=== PATIENT | female | born 1990 | race Caucasian/White ===

== ENCOUNTER 2020-01-11 19:40 | Emergency (ER) | payer OTHER, SELFPAY ==
--- NOTE | ~2020-01-11 | CT_ITS ---
EXAMINATION: CT brain wo con DATE: 01/11/2020 21:53 INDICATION: Dizziness. Paresthesias. TECHNIQUE: Computed tomography (CT) of the head was performed without intravenous contrast. Sagittal and coronal reconstructions were performed. The mA was adjusted according to patient size. Iterative reconstruction technique was employed. The dose-length product was 605.33 mGy-cm. COMPARISON: None FINDINGS: No acute intracranial hemorrhage, acute infarction or abnormal extra axial fluid collection. Ventricl es are normal and symmetric. No mass/mass effect. Mild mucosal thickening the bilateral ethmoid sinus es. The orbits and mastoid air cells are normal. IMPRESSION: 1. No acute intracranial process. Reviewed, dictated and finalized at location A.
[2020-01-11 19:44] VITALS: BP 142/80; PULSE 122; RESP 18; TEMP 37.5; O2SAT 100
--- NOTE | 2020-01-11 19:58 | ECG_ITS ---
Measurements Intervals [place] Rate: 124 P: 60 SC: 133 QRS: 6 QRSD: 100 T: 33 QT: 337 QTc: 484 Interpretive Statements SINUS TACHYCARDIA BORDERLINE ST-T WAVE ABNORMALITY- DIFFUSE LEADS BASELINE ARTIFACT- II, AVF ABNORMAL ECG Electronically Signed On 01-12-2020 7:54:37 CDT by Star Turner D.O.
[2020-01-11 20:12] LABS: Basophils Percent Auto 0.4 % (0.2-1.2); Eosinophils Absolute Auto 0.1 K/mm3 (0-0.3); Eosinophils Percent Auto 1.4 % (0-4.4); Immature Granulocyte Absolute 0.04 K/mm3 (0.00-0.031); Immature Granulocyte Percent A 0.6 % (0-0.5); Lymphocytes Absolute Auto 1.13 K/mm3 (0.9-3.2); Lymphocytes Percent Auto 16.3 % (18.3-44.2); Mean Corpuscular HGB Conc 29.4 g/dl (32-36); Mean Corpuscular Hemoglobin 21.4 pg (26-34); Mean Corpuscular Volume 72.8 fl (80-100); Mean Platelet Volume 10.7 fl (7.4-10.4); Monocytes Absolute Auto 0.2 K/mm3 (0.1-0.6); Monocytes Percent Auto 3.5 % (2.6-8.5); Neutrophils Absolute Auto 5.4 K/mm3 (1.3-6.7); Neutrophils Percent Auto 77.8 % (45.5-73.1); Platelet Count Result 315 k/mm3 (150-375); Red Blood Count 4.67 M/mm3 (4.2-5.4); Red Cell Distribution Width 16.6 % (11.5-14.5); White Blood Count 6.9 K/mm3 (4.5-10.0)
[2020-01-11 20:24] LABS: Anion Gap 8 mmol/L (8-16); Blood Urea Nitrogen 12 mg/dL (7-17); Calcium 9.3 mg/dL (8.4-10.2); Carbon Dioxide 28 mmol/L (22-30); Chloride 102 mmol/L (98-107); Estimated CRCL calculation 124 ml/min; Estimated Glomerular Filt Rate > 60; Glucose 114 mg/dL (65-105); Potassium 4.2 mmol/L (3.4-5.0); Sodium 138 mmol/L (137-145)
[2020-01-11 20:27] LABS: Anisocytosis 2+ (NORMAL); Platelet Estimate Adequate (Adequate)
[2020-01-11 21:30] VITALS: BP 137/95; PULSE 95; RESP 18; O2SAT 99
--- NOTE | 2020-01-11 21:52 | ED.DIZZY ---
HPI - Dizziness General Chief Complaint: Dizziness Stated Complaint: weakness, feels like shes arsenio pass out Time Seen by Provider: 01/11/20 21:23 History of Present Illness HPI Narrative: Patient presents with her [id number]-ad-dyw for dizziness. Started this afternoon at 2:00 when she woke up from a nap. She said she could not feel her leg, she had visual disturbance that she cannot describe. She does not know whether it is an off balance or a going to faint sensation. She is never felt like this before. She has had a cough since last night. Her temperature is elevated. She denies any pain. She denies any recent illness. She does not have any ear pain or difficulty hearing. Her surgical history includes a . She works full-time at [email or web address]. MD elicited complaint: dizziness, lightheadedness and difficulty walking Pertinent past history: other (Morbid obesity) Onset (ago): hour(s) Timing: awoke with symptoms Severity: moderate Description: other (She cannot decide or describe.) History of similar symptoms: No Exacerbating factors: movement/ambulation Relieving factors: nothing Associated symptoms: change in hearing (She said she could not hear) and palpatations Associated neuro symptoms: vision changes (She cannot describe it is either blurry or double vision, just that she could not make things out) Related Data Allergies Allergy/AdvReac Type Severity Reaction Status Date / Time Penicillins Allergy Mild DIARRHEA Verified 01/11/20 19:47 AMOXICILLIN TRIHYDRATE Allergy Unknown Unknown Uncoded 01/11/20 19:47 Review of Systems Review of Systems: Narrative: CONSTITUTIONAL: Denies fever, chills, or sweats. EYES: Denies visual changes, redness, or discharge. ENT: Denies rhinorrhea, congestion, sore throat, or otalgia. CARDIOVASCULAR: Denies chest pain, palpitations, or edema. RESPIRATORY: She has cough but not dyspnea. GASTROINTESTINAL: Denies abdominal pain, nausea, vomiting, or diarrhea. GENITOURINARY: Denies dysuria or hematuria. SKIN: Denies rash or itching. MUSCULOSKELETAL: Denies back pain, joint pain, or myalgia. NEUROLOGIC: Denies headache, she had numbness of the legs, and weakness. . All systems reviewed & are unremarkable except as noted in HPI and below [facility] Past Medical History Medical History Family planning Morbid obesity Surgical History Surgical History (Updated 01/11/20 @ 21:58 by Deborah Montoya MD) History of Social History Social History (Updated 01/11/20 @ 21:59 by Deborah Montoya MD) Smoking status: Current every day smoker Alcohol intake: current Substance use: current Exam Narrative: Exam Narrative: GENERAL: Well-appearing, well-nourished, and in no acute distress. Morbid obesity. HEAD: Normocephalic, atraumatic. EYES: PERRLA and EOMI. ENT: Nares clear, no rhinorrhea or epistaxis. Mucous membranes moist. NECK: Supple. CHEST: Clear to auscultation. No respiratory distress. HEART: Regular rate and rhythm. No murmur heard. Normal peripheral pulses. ABDOMEN: Soft, nontender, nondistended, normal active bowel sounds. EXTREMITIES: Normal range of motion. No edema. SKIN: Warm, dry, no rash. NEURO: No focal deficits. Alert and oriented x3. PSYCH: Anxious. Course Reevaluation(s) Reevaluation #1: Went back in the room to explain the test results to the patient and her txtdro-[id number]-spy. The patient sat up and said she felt better. I explained I will send her home with a prescription for the meclizine. The iwtfko-gf-vye is still very concerned that we have not given a proper diagnosis to any of the symptoms. I offered a follow-up doctor for further evaluation. The patient and said that she just thinks she needs to go home and sleep and she will be fine. Date: 01/11/20 Time: 22:59 Vital Signs Vital signs: Vital Signs Temperature 99.5 F 01/11/20 19:44 Pulse Rate 122 H 01/11/20 19:44 Respiratory Rat
[2020-01-11] MEDS: MECLIZINE HCL 25 MG TABLET PO (21:59)
[2020-01-11 22:07] LABS: Ethanol < 10 mg/dL (<10)
--- NOTE | 2020-01-11 22:45 | PC.NURSE ---
Not much relief with dizziness or vision issues at this time---Dr Montoya aware
[2020-01-11 23:10] VITALS: BP 132/89; PULSE 72; RESP 16; O2SAT 96
== END 2020-01-11 23:24 | disposition home or self-care (01) ==
PROVIDERS: Emergency Provider Emergency Medicine
DX: R42 Dizziness and giddiness (principal); R20.2 Paresthesia of skin; H53.9 Unspecified visual disturbance; R05 Cough; E66.01 Morbid (severe) obesity due to excess calories; Z68.35 Body mass index [BMI] 35.0-35.9, adult; F17.200 Nicotine dependence, unspecified, uncomplicated; R00.0 Tachycardia, unspecified; R94.31 Abnormal electrocardiogram [ECG] [EKG]
CPT/HCPCS: 36415; 70450; 80048; 80307; 85025; 93005; 99284; A9270

== ENCOUNTER 2021-06-06 19:47 | Emergency (ER) | payer OTHER, SELFPAY ==
[2021-06-06 19:55] VITALS: BP 172/106; PULSE 104; RESP 16; TEMP 36.9; O2SAT 100
[2021-06-06 20:00] VITALS: BP 172/106; PULSE 104; RESP 16; TEMP 36.9; O2SAT 100
--- NOTE | 2021-06-06 20:08 | ED.URI ---
HPI - URI/Sore Throat General Chief Complaint: Upper Respiratory Infection Stated Complaint: congestion fever Time Seen by Provider: 06/06/21 20:00 Source: patient, RN notes reviewed and old records reviewed Mode of arrival: ambulatory Limitations: no limitations History of Present Illness HPI Narrative: 30 year old female who presents to [facility] with complaints of headache, cough, with fatigue and left ear pain with fevers up to 101.9F since Monday. Patient reports that she has dry cough has been taking Advil cold and flu for her symptoms. Patient reports no COVID or flu vaccinations. MD elicited complaint: rhinorrhea and nasal congestion Related Data Home Medications Medication Instructions Recorded Confirmed No Home Medications 06/06/21 06/06/21 Allergies Allergy/AdvReac Type Severity Reaction Status Date / Time Penicillins Allergy Mild DIARRHEA Verified 06/06/21 19:59 AMOXICILLIN TRIHYDRATE Allergy Unknown Diarrhea Uncoded 06/06/21 19:59 Review of Systems Review of Systems: CONSTITUTIONAL: Positive fever, chills, or sweats. EYES: Denies visual changes, redness, or discharge. ENT: Positive rhinorrhea, congestion,no sore throat, left otalgia. CARDIOVASCULAR: Denies chest pain, palpitations, or edema. RESPIRATORY: Positive cough no dyspnea. GASTROINTESTINAL: Denies abdominal pain, nausea, vomiting, or diarrhea. GENITOURINARY: Denies dysuria or hematuria. SKIN: Denies rash or itching. MUSCULOSKELETAL: Denies back pain, joint pain, or myalgia.fatigue NEUROLOGIC: positive headache,no numbness, or weakness. PSYCHIATRIC: Positive history of anxiety or depression. All systems reviewed & are unremarkable except as noted in HPI and below [facility] Past Medical History Medical History (Updated 06/08/21 @ 08:18 by Lupe Vanegas NP) Anxiety Family planning Morbid obesity Surgical History Surgical History History of Social History Social History (Updated 06/08/21 @ 08:20 by Lupe Vanegas NP) Smoking packs per day: 0.25 Smoking cigarettes per day: 5.0 Smoking status: Current every day smoker Alcohol intake: current Substance use: unknown Living arrangements: with family Gender identity (if verbalized by the patient): Female Comments At time of signature, agree with nursing past medical, surgical, social and family history. There is no relevant family history pertinent to the presenting complaint Exam Narrative: GENERAL: Well-appearing, well-nourished, and in no acute distress. HEAD: Normocephalic, atraumatic. EYES: PERRLA and EOMI. ENT: Nares patent with clear rhinorrhea no epistaxis. Mucous membranes moist.TM's normal with good light reflex, throat pink with no lesions exudates or tonsil enlargement post nasal drainage. NECK: Supple.no lymphadenopathy CHEST: Clear to auscultation. No respiratory distress.SAO2 100% on room air, dry cough HEART: Regular rate and rhythm. No murmur heard. Normal peripheral pulses. ABDOMEN: Soft, nontender, nondistended, normal active bowel sounds. EXTREMITIES: Normal range of motion. No edema. SKIN: Warm, dry, no rash. NEURO: No focal deficits. Alert and oriented x3. Course Course Level of Care: Express Care Visit Vital Signs Vital signs: Vital Signs Temperature 36.9 C 06/06/21 19:55 Pulse Rate 104 H 06/06/21 19:55 Respiratory Rate 16 06/06/21 19:55 Blood Pressure 172/106 H 06/06/21 19:55 Pulse Oximetry 100 06/06/21 19:55 Temperature 36.9 C 06/06/21 20:00 Pulse Rate 104 H 06/06/21 20:00 Respiratory Rate 16 06/06/21 20:00 Blood Pressure 172/106 H 06/06/21 20:00 Pulse Oximetry 100 06/06/21 20:00 MDM - URI/Sore Throat Differential Diagnosis Differential diagnosis: Likely upper respiratory infection, viral infection and other (cough,) Medical Records Attestation: I reviewed the patient's medical records. Lab Data Attestation: I reviewed the patient'
== END 2021-06-06 20:27 | disposition home or self-care (01) ==
PROVIDERS: Emergency Provider Registered Nurse
DX: J06.9 Acute upper respiratory infection, unspecified (principal); F17.210 Nicotine dependence, cigarettes, uncomplicated; E66.01 Morbid (severe) obesity due to excess calories; Z68.42 Body mass index [BMI] 45.0-49.9, adult
CPT/HCPCS: 87426; 99213; C9803; G0463

== ENCOUNTER 2023-10-02 21:49 | Emergency (ER) | payer SELFPAY ==
--- NOTE | ~2023-10-02 | XR_ITS ---
EXAM: XR foot LT min 3V DATE: 10/02/2023 22:18 HISTORY: lump on foot . COMPARISON: None available. FINDINGS: Normal mineralization. No fracture or dislocation. No lytic or blastic lesion. Joint space s are maintained. Mild Achilles and plantar enthesopathy. No erosion or periosteal change. 2.9 x 1.0 cm soft tissue swelling over the dorsum of the foot with an associated calcification. IMPRESSION: No acute osseous finding in the left foot. 2.9 x 1.0 cm dorsal soft tissue mass, may represent contusion/hematoma if there has been recent traum a. Consider abscess if there are signs of infection. If chronic, the associated phlebolith-like calcification may represent venous calcification as can be seen with hemangioma, although other masses are possible. Consider nonemergent outpatient soft tissu e ultrasound for further evaluation. Reviewed, dictated and finalized at [facility]. IMPRESSION: No acute osseous finding in the left foot. 2.9 x 1.0 cm dorsal soft tissue mass, may represent contusion/hematoma if there has been recent trauma. Consider abscess if there are signs of infection. If chronic, the associated phlebolith-like calcification may represent venous c alcification as can be seen with hemangioma, although other masses are possible . Consider nonemergent outpatient soft tissue ultrasound for further evaluation .
[2023-10-02 21:50] VITALS: BP 159/97; PULSE 95; RESP 18; TEMP 36.1; O2SAT 97
[2023-10-02 21:55] VITALS: O2SAT 97
--- NOTE | 2023-10-02 22:01 | ED.URI ---
HPI - URI/Sore Throat General Chief Complaint: Upper Respiratory Infection Stated Complaint: upper respiratory Time Seen by Provider: 10/02/23 21:54 History of Present Illness HPI Narrative: Pt presents with cough and pain in upper chest when she coughs for a couple of days. Pt denies fever or SOB. Pt also has a lump on the back of her foot for several weeks that she wants checked out while she's here. Pt denies injury. Pt also has mild sore throat. Related Data Home Medications Medication Instructions Recorded Confirmed No Home Medications 06/06/21 10/02/23 Allergies Allergy/AdvReac Type Severity Reaction Status Date / Time Penicillins Allergy Mild DIARRHEA Verified 06/06/21 19:59 AMOXICILLIN TRIHYDRATE Allergy Unknown Diarrhea Uncoded 06/06/21 19:59 Review of Systems Review of Systems: All systems reviewed & are unremarkable except as noted in HPI and below [facility] Past Medical History Medical History (Updated 10/02/23 @ 22:47 by Vladislav Saavedra III, DO) Anxiety Family planning Morbid obesity Surgical History Surgical History History of Social History Social History (Updated 06/08/21 @ 08:20 by Lupe Vanegas NP) Smoking packs per day: 0.25 Smoking cigarettes per day: 5.0 Smoking status: Current every day smoker Alcohol intake: current Substance use: unknown Living arrangements: with family Gender identity (if verbalized by the patient): Female Exam Const: General: healthy appearing Nutritional Appearance: obese Orientation/consciousness: patient oriented x3 Limitations: no limitations HENMT: Mouth: Yes Normal oral and palatal mucosa present Throat: posterior oropharynx normal Eyes: Conjunctivae: conjunctivae normal Pupils: Equal, round and reactive pupils present EOM: EOMs intact bilaterally Chest: Chest palpation & inspection: normal inspection of the chest Resp: Effort & Inspection: normal respiratory effort Auscultation: clear to auscultation bilaterally Cardio: Rate: regular rate Rhythm: regular rhythm GI: GI Palp: Yes Soft to palpation Skin: Rashes: no rashes Neuro: General: patient oriented x3, moves all extremities and no focal motor deficits Speech: normal speech Extrem: Other: tender with firm knot calcaneus near insertion of achilles Psych: Mental Status: mental status grossly normal Affect: normal affect Attitude: cooperative Course Vital Signs Vital signs: Vital Signs Temperature 97 F L 10/02/23 21:50 Pulse Rate 95 10/02/23 21:50 Respiratory Rate 18 10/02/23 21:50 Blood Pressure 159/97 H 10/02/23 21:50 Pulse Oximetry 97 10/02/23 21:50 Oxygen Delivery Room Air 10/02/23 21:50 Temperature 97 F L 10/02/23 21:50 Pulse Rate 95 10/02/23 21:50 Respiratory Rate 18 10/02/23 21:50 Blood Pressure 159/97 H 10/02/23 21:50 Pulse Oximetry 97 10/02/23 21:55 Oxygen Delivery Room Air 10/02/23 21:55 MDM - URI/Sore Throat MDM Narrative Medical decision making narrative: pt has small collection of fluid in soft tissue, no definite trauma and no erythema or fluctuance so i doubt abscess. told pt she needs to follow up with PC and get sono or mri to evaluate. swabs neg. Differential Diagnosis Differential diagnosis: Likely upper respiratory infection, sinusitis, viral infection, bronchitis, influenza, pharyngitis and other (tendonits vs stress fx) Lab Data Labs: Lab Results 10/02/23 Range/Units 21:56 Influenza A (RT-PCR) Negative (Negative) Influenza B (RT-PCR) Negative (Negative) RSV (RT-PCR) Negative (Negative) SARS-CoV-2 RNA (RT-PCR) Negative (Negative) Group A Strep (PCR) Not detected (Negative) Discharge Plan Discharge Clinical Impression: Upper respiratory infection Patient Disposition: Home, Self-Care Condition: Stable Instructions: Antibiotic Form, Viral Syndrome (ED), Soft Ti
[2023-10-02 22:24] LABS: Strep Group A RT-PCR NOT DETECTED (Negative)
[2023-10-02 22:35] LABS: SARS-CoV-2 RNA PCR Negative (Negative)
[2023-10-02 22:36] LABS: Influenza A QL RT-PCR Negative (Negative); Influenza B QL RT-PCR Negative (Negative); RSV RNA, RT-PCR Negative (Negative)
--- NOTE | 2023-10-02 22:40 | PC.NURSE ---
Pt is back from CT, she will respond to verbal stimuli and is able to comprehend and follow instructions but remains slightly lethargic and very drowsy. She is A&O x2 at this time. Monitor shows NSR, continuing to monitor.
[2023-10-02 22:53] VITALS: BP 132/87; PULSE 84; RESP 20; O2SAT 97
== END 2023-10-02 22:53 | disposition home or self-care (01) ==
PROVIDERS: Emergency Provider Emergency Medicine; PCP Family Medicine
DX: J06.9 Acute upper respiratory infection, unspecified (principal); F41.9 Anxiety disorder, unspecified; Z68.43 Body mass index [BMI] 50.0-59.9, adult; F17.210 Nicotine dependence, cigarettes, uncomplicated; Z20.822 Contact with and (suspected) exposure to COVID-19
CPT/HCPCS: 73630; 87637; 87651; 99283

== ENCOUNTER 2023-10-22 20:50 | Emergency (ER) | payer SELFPAY ==
[2023-10-22 22:03] VITALS: BP 180/107; PULSE 101; RESP 18; TEMP 36.7; O2SAT 99
--- NOTE | 2023-10-22 22:21 | ED.GENADULT ---
HPI - General Adult General Chief complaint: Wound/Laceration Stated complaint: Headache, redness to left lower leg Time Seen by Provider: 10/22/23 22:20 Source: patient Mode of arrival: ambulatory Limitations: no limitations History of Present Illness HPI narrative: 32-year-old white female morbidly obese complains of redness and swelling of her left lower leg associated with warmth. Denies any pain at rest but if she bumps then it then it hurts. She has a history of lymphedema in her right leg. She had a fever 2 days ago not today has a headache intermittently which has improved with Tylenol. Denies any history of venous thromboembolism cough shortness of breath difficulty breathing runny nose sore throat chest pain, other rash or swelling, back pain or any other pain. Denies any problems walking talking seeing or hearing, nausea vomiting diarrhea dizziness or lightheadedness or any other complaints. Related Data Allergies Allergy/AdvReac Type Severity Reaction Status Date / Time Penicillins Allergy Mild DIARRHEA Verified 06/06/21 19:59 AMOXICILLIN TRIHYDRATE Allergy Unknown Diarrhea Uncoded 06/06/21 19:59 Review of Systems Review of Systems: All systems reviewed & are unremarkable except as noted in HPI and below [facility] Past Medical History Medical History Anxiety Family planning Morbid obesity Surgical History Surgical History History of Social History Social History Smoking packs per day: 0.25 Smoking cigarettes per day: 5.0 Smoking status: Current every day smoker Alcohol intake: current Substance use: unknown Living arrangements: with family Gender identity (if verbalized by the patient): Female Exam Narrative: morbidly obese White female no apparent distress. ?Head:? Normocephalic atraumatic.? Eyes conjunctiva pink sclera nonicteric.? Ears externally normal. Oropharynx is clear with moist mucous membranes no exudates.? Neck is supple no lymphadenopathy nontender full range of motion.? Back is nontender.? Chest nontender.? Lungs are clear without wheezes rales or rhonchi.? Heart is regular rate rhythm without murmurs gallops or rubs.? Abdomen soft and nontender no hepatosplenomegaly or masses no CVA tenderness no abdominal bruits.? Extremities : Left leg with a sharply demarcated red rash entire leg warm to touch nontender negative Homans sign. Right leg is mildly erythematous. DP and PT pulses are +2 equal bilateral.? Neurological she is alert and oriented x4 motor and sensory grossly intact.? Skin is warm and dry without lesions. Course Vital Signs Vital signs: Vital Signs Temperature 36.7 C 10/22/23 22:03 Pulse Rate 101 H 10/22/23 22:03 Respiratory Rate 18 10/22/23 22:03 Blood Pressure 180/107 H 10/22/23 22:03 Pulse Oximetry 99 10/22/23 22:03 Oxygen Delivery Room Air 10/22/23 22:03 Temperature 36.7 C 10/22/23 22:03 Pulse Rate 101 H 10/22/23 22:03 Respiratory Rate 18 10/22/23 22:03 Blood Pressure 180/107 H 10/22/23 22:03 Pulse Oximetry 99 10/22/23 22:03 Oxygen Delivery Room Air 10/22/23 22:[address] [facility] Narrative Medical decision making narrative: ? Patient placed in room: 2 with her mother . ? History and physical was performed. Independent Historian: Mother External Source Review: Differential Dx includes but not limited to: cellulitis lymphedema DVT (she has no pain at rest ) Medications were Reviewed: home meds reviewed Medications given: Rocephin 1 g with lidocaine IM Independently Interpreted by me: Shared decision Making: evaluation was discussed all questions were asked and answered and patient agreed with the plan. should take Augmentin 875 twice a day for 7 days. She has an allergy to amoxicillin and penicillin that gives he
[2023-10-22] MEDS: cefTRIAXone 1 GM, LIDOCAINE HCL 1% LOCAL INJ 2.1 ML IM (22:48)
[2023-10-22 23:07] VITALS: BP 155/98; PULSE 87; RESP 20; TEMP 36.6; O2SAT 98
== END 2023-10-22 23:07 | disposition home or self-care (01) ==
PROVIDERS: Emergency Provider Emergency Medicine; PCP Family Medicine
DX: L03.116 Cellulitis of left lower limb (principal); F17.210 Nicotine dependence, cigarettes, uncomplicated
CPT/HCPCS: 96372; 99283; J0696

== ENCOUNTER 2024-06-02 23:56 | Emergency (ER) | payer OTHER, SELFPAY ==
--- NOTE | ~2024-06-02 | XR_ITS ---
Portable chest x-ray Comparison: 08/22/2009 Clinical History: Cough Findings: Lungs are clear, without focal consolidation or pleural effusion. Cardiomediastinal silho uette is stable. Bones and soft tissues are unremarkable. Impression: Clear lungs. Reviewed, dictated and finalized at location . [facility] Impression: Clear lungs.
--- NOTE | 2024-06-03 00:13 | ED.URI ---
HPI - URI/Sore Throat General Chief Complaint: Upper Respiratory Infection Stated Complaint: Sore Throat/cough Time Seen by Provider: 06/03/24 00:13 Source: patient and family Mode of arrival: ambulatory History of Present Illness HPI Narrative: patient drove herself to the emergency room complaining of chest tightness, dry cough, sore throat, earaches, body aches started last night. Got worse tonight. Patient works at [employer]. She is healthy otherwise, she smokes cigarettes Related Data Allergies Allergy/AdvReac Type Severity Reaction Status Date / Time Penicillins Allergy Mild DIARRHEA Verified 06/06/21 19:59 AMOXICILLIN TRIHYDRATE Allergy Unknown Diarrhea Uncoded 06/06/21 19:59 Review of Systems Review of Systems: All systems reviewed & are unremarkable except as noted in HPI and below PMFSH Past Medical History Medical History Anxiety Family planning Morbid obesity Surgical History Surgical History History of Social History Social History Smoking packs per day: 0.25 Smoking cigarettes per day: 5.0 Smoking status: Current every day smoker Alcohol intake: current Substance use: unknown Living arrangements: with family Gender identity (if verbalized by the patient): Female Exam Narrative: General appearance: Well-developed, well-nourished Skin: Normal color Head: Normocephalic, nontraumatic Eyes: Clear conjunctiva ENT: slight oropharyngeal erythema, ears normal, nasal drainage Neck: Supple, nontender Chest and respiratory: Airway patent, no respiratory distress, no accessory muscle use Heart: Regular rate/rhythm Neurologic: Alert and oriented ?3, RADIOGRAPHIC TECHNOLOGIST is normal as tested, no gross motor deficit Course Vital Signs Vital signs: Vital Signs Pulse Oximetry 97 06/03/24 00:24 Oxygen Delivery Room Air 06/03/24 00:24 Temperature 37.2 C 06/03/24 01:33 Pulse Rate 87 06/03/24 01:33 Respiratory Rate 18 06/03/24 01:33 Blood Pressure 133/79 06/03/24 01:33 Pulse Oximetry 98 06/03/24 01:33 Oxygen Delivery Room Air 06/03/24 01:33 MDM - URI/Sore Throat MDM Narrative Medical decision making narrative: patient presents with upper respiratory viral infection like symptoms Vital signs are stable Physical examination showing intermittent dry cough, nina pharyngeal erythema, clear nasal discharge Patient tested negative for COVID, flu and RSV, chest x-ray showed no acute abnormality Upper respiratory viral infection is my concern. Differential Diagnosis Differential diagnosis: Likely other (As above) Lab Data Labs: Lab Results 06/03/24 Range/Units 00:13 Influenza A (RT-PCR) Negative (Negative) Influenza B (RT-PCR) Negative (Negative) RSV (RT-PCR) Negative (Negative) SARS-CoV-2 RNA (RT-PCR) Negative (Negative) Group A Strep (PCR) Not detected (Negative) Imaging Data Radiologist's impression: chest x-ray showed no consolidation Critical Care Time Critical Care Time Critical Care Time: No Discharge Plan Discharge Clinical Impression: Upper respiratory infection, viral Patient Disposition: Home, Self-Care Condition: Stable Instructions: Upper Respiratory Infection (ED) Additional Instructions: Return if symptoms are worsening , call your family physician for appointment, take Tylenol, ibuprofen as as needed for aches and pain, continue home medications. Csen-xvp-gjxudtv cup on cold medicine Patient Language: Tristanian Prescriptions: No Action amoxicillin-pot clavulanate 875-125 mg tablet 1 tablet PO BID 7 Days Qty: 14 0RF clindamycin HCl 300 mg capsule 300 mg PO Q6H 5 Days Qty: 20 0RF Follow-up/Referrals: UNKNOWN,DOCTOR [Primary Care Provider] - Stand Alone Forms: Work/School Release IP
[2024-06-03 00:24] VITALS: O2SAT 97
[2024-06-03 00:31] VITALS: BP 138/72; PULSE 77; RESP 20; TEMP 37.7; O2SAT 97
[2024-06-03 01:18] LABS: Strep Group A RT-PCR NOT DETECTED (Negative)
[2024-06-03 01:21] LABS: Influenza A QL RT-PCR Negative (Negative); Influenza B QL RT-PCR Negative (Negative); RSV RNA, RT-PCR Negative (Negative); SARS-CoV-2 RNA PCR Negative (Negative)
[2024-06-03 01:33] VITALS: BP 133/79; PULSE 87; RESP 18; TEMP 37.2; O2SAT 98
--- OUTSIDE RECORDS SUMMARY | 2024-06-10 03:28 | XMS_ITS | Encounter Summary ---
Author Organization [facility] Address [address] [facility] [address] [place] [id number] Care Team Providers Care Guest Service Manager Name Role Phone Moise Tinoco MD Primary Care Provider [phone] Matrinez Boyle MD Unavailable [phone] Reason for Visit * Reason Comments Follow-up For leg swelling Encounter Details Date Type Department Care Team (Late st Contact Info) Description 09/06/2021 3:45 PM CDT Office Visit [facility] Primary Care at [address] [address] Moise Tinoco MD [address] [place] [address] [address] [place] [address] Lymphedema (Primary Dx); Class 3 severe obesity due to excess calories without serious comorbidity with body mass index (BMI) of 50.0 to 59.9 in adult (HCC) Social History Tobacco Use Types Packs/Day Years Used Date Smoking Tobacco: Every Day Cigarettes 0.5 22 Started: 2002 Smokeless Tobacco: Never AUDIT-C Answer Date Recorded Q1: How often do you have a drink containing alc ohol? Never 08/11/2021 Average Number of Drinks Not on file 022 Q3: How often do you have si x or more drinks on one occasion? 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 Not on file Not on file documented as of this encounter Last Filed Vital Signs Vital Sign Reading Time Taken Comments Blood Pressure 126/84 09/06/2021 3:59 PM CDT Pulse 107 09/06/2021 3:59 PM CDT Temperature 36.7 ??C (98 ??F) 09/06/2021 3:59 PM CDT Respiratory Rate 22 09/06/2021 3:59 PM CDT Oxygen Saturation 97% 09/06/2021 3:59 PM CDT Inhaled Oxygen Concentration - - Weight 169.8 kg (374 lb 4.8 oz) 09/06/2021 3:59 PM CDT Height 172.7 cm (5' 7.99 ) 09/06/2021 3:59 PM CD T Body Mass Index 56.93 09/06/2021 3:59 PM CDT documented in this encounter Patient Instructions * Patient Instructions* Moise Tinoco MD - 09/06/2021 3:45 PM CDT Discussed dietary changes OptaVia program discussed, also Nutrisystem NuMi Discussed intermittent fasting approach- basically, you will curb your eating to only a shortened period in a day. For example, you could fast 14 hours and eat in an 8 hour window; or you could do 16:8, or 18:6. Some do well fasting 2 24- hour periods per week (may be the best approach based on the data, actually, but hard to adhere to). It might be easier to start with a 12-on, 12-off type of strategy first to see how you respond. I would still try and keep on a healthy diet when eating-- good carbs, lean protein, plenty of hydration, and easy on the sweets/pastas/breads. Exercise should be kept to light until you figure out how your body is responding, as there may be a shortfall in energyearly on, as you adjust. Patient Education Lymphedema WHAT YOU NEED TO KNOW: What do I need to know about lymphedema? The lymphatic system contains fluid, vessels, tissue, and organs. This system removes and carries fluid throughout the body. It also helps the body fight infection. Lymphedema is the buildup of lymph fluid in fat tissue under your skin. The buildup causes the area to swell. Lymphedema can happen any time that lymphatic vessels are blocked or damaged. What increases your risk for lymphedema? ?? Surgery to remove lymph nodes in the underarm, groin, pelvis, or neck ?? Radiation to lymph nodes in the underarm, groin, pelvis, or neck ?? Surgery to the chest, head, neck, or pelvis ?? Being overweight or obese ?? A history of venous insufficiency ?? Infection or injury ?? A history of diseases that affect the lymphatic system such as Enders disease What are the signs and symptoms of lymphedema? Signs and symptoms may happen where lymph nodes wereremoved, or in the arm, leg, chest, or underarm. ?? Swelling or itching ?? Pain, burning, or aching ?? Tight, hard, or red skin ?? Hair loss ?? Heaviness or fullness ?? Numbness or tingling ?? Stiffness How is lymphedema diagnosed? Your healthcare provider will examine areas of swelling and ask about your symptoms. Tell him if you have ever had cancer, radiation treatment, or surgery. You may need an ultrasound, MRI, CT, or nuclear scan. These tests take pictures of the lymphatic system. They may show areas of fluid buildup. You may be given dye to help the lymphatic system show up better in pictures. Tell the healthcare provider if you have ever had an allergic reaction to contrast liquid. Donot enter the MRI room with anything metal. Metal can cause serious injury. Tell the healthcare provider if you have any metal in or on your body. You may need other tests to check for other causes of swelling. How is lymphedema treated? There is no cure for lymphedema. Treatment can relieve symptoms and prevent lymphedema from getting worse. You may need any of the following: ?? Therapeutic massage helps move lymphatic fluid through your body. It is done by a specialist, who may also teach you how to perform the massage yourself. ?? Compression devices are sleeves, gloves, boots, or bandages. These devices use pressure to help move lymphatic fluid and prevent fluid buildup. ?? Physical therapy may help decrease swelling and pain. It may also help improve strength. ?? Surgery may be needed if other treatments do not work. Surgery may be done to remove tissue, drain fluid, or create a path for lymphatic fluid to flow. How can I manage my symptoms? ?? Elevate your arm or leg above the level of your heart as often as you can. This will help decrease swelling and pain. Prop your arm or leg on pillows or blankets to keep it elevated comfortably. ?? Wear compression socks, sleeves, or bandages as directed. Compression devices must be fitted by a healthcare provider. Compression devices may need to be replaced every 3 to 6 months. ?? Exercise can help you maintain or regain function of your arm or leg. Ask your healthcare provider what type of exercise to do and how often to do it. Start slow, take breaks, and gradually do more each day. Do not do vigorous, repeated exercises. Watch for changes in your arm or leg during exercise. Stop and rest if you have swelling, increased pain, or heaviness. Elevate your arm or leg above the level of your heart. ?? Change your position often to help move lymphatic fluid through your body. Do not sit or camera tuning engineer one position for more than 30 minutes. Do not cross your legs when you sit. These actions can cause lymphatic fluid to buildup. ?? Maintain a healthy weight. Ask your healthcare provider what you should weigh. Weight loss may improve your symptoms. If you need to lose weight, your healthcare provider can help you create a weight loss program. How do I care for my skin and help prevent infection? A skin infection can make lymphedema worse. Do the following to decrease your risk for a skin infection in your arm or leg with lymphedema: ?? Wash your skin gently and dry it well. Use a mild soap to wash your skin. Gently pat your skin dry after you bathe. Apply a mild cream or lotion to moisturize your skin and prevent dryness or cracking. Keep your feet clean and dry. ?? Protect your skin from injury. Wear gloves when you garden and wash dishes. Cut your nails straight across to prevent injury to your fingers and toes. Use sunscreen and insect repellant to avoid villanueva and punctures. Wear slippers in the house. Wear shoes when you go outside. ?? Check your skin every day for signs of infection. Signs of infection include redness, swelling, increased heat, or pus. You may also have a fever or chills. ?? Care for cuts, scratches or villanueva. Apply antibiotic ointment to cuts and other small breaks in the skin. Apply a cold pack or cold water to a burn for 15 minutes. Then wash it with soap and water.Cover scratches, cuts, or villanueva with a clean, dry gauze or bandage as directed. Keep the area cleanand dry. ?? Tell healthcare providers that you have lymphedema. Tell them not to do, IVs, blood draws, and blood pressure readings in the arm or leg with lymphedema. If there is lymphedema in both arms, ask them to take your blood pressure on your leg. Do not allow flu shots or vaccinations in your arm withlymphedema. When should I contact my healthcare provider? ?? You have a fever or chills. ?? You have an open area of skin that looks red or swollen, or drains pus. ?? Your symptoms, such as swelling or pain, get worse. ?? Your arms or legs feel heavy, or you cannot move them. ?? Your skin becomes hard, thick, or rough. ?? You have a skin wound that will not heal. ?? Your shoes, clothes, or jewelry feel tighter. ?? You have questions or concerns about your condition or care. CARE AGREEMENT: You have the right to help plan your care. Learn about your health condition and how it may be treated. Discuss treatment options with your caregivers to decide what care you want to receive. You always have the right to refuse treatment. The above information is an forestry fire aide only. It is not intended as medical advice for individual conditions or treatments. Talk to your doctor, nurse or pharmacist before following any medical regimen to see if it is safe and effective for you. ?? 2017 [employer] Information is for End User's use only and may not be sold, redistributed or otherwise used for commercial purposes. All illustrations and images included in CareNotes?? are the copyrighted property of [employer] Inc[employer] or [employer]. Thanks for coming in today! My medical assistants and I are thankful you have trusted us with your care, and hope that you received EXCELLENT care today! Please do not hesitate to call if you have any questions or concerns at [phone]. You may receive a phone call, text, MYCHART message, or e-mail asking about your care today. We would love to hear your feedback on how EXCELLENT your care wastoday! Wishing you better health, always. Dr. Tinoco documented in this encounter Progress Notes * Moise Tinoco MD - 09/06/2021 3:45 PM CDT Images from the original note were not included. Subjective/Objective Patient ID: Christine Siddiqi is a 30 y.o. female. Chief Complaint Follow-up (For leg swelling ) Christine presents for follow-up. She is still dealing with swelling in her legs however now that wehave left the furosemide going for longer than a few days at a time she notes that the swelling is better. Blood pressures improved with the losartan. She is trying to elevate her legs as prescribed which is also seemingly helping. We discussed weight loss in the past, and we are discussing again today. She works at [employer], which is a bit of a problem when dieting. Current Outpatient Medications: ??? furosemide (LASIX) 20 mg tablet, Take 1 tablet (20 mg total) by mouth daily, Disp: 30 tablet, Rfl: 1 ??? losartan (COZAAR) 50 mg tablet, Take 1 tablet (50 mg total) by mouth daily, Disp: 30 tablet, Rfl: 11 Review of Systems Constitutional: Negative for chills, fatigue and fever. Respiratory: Negative for cough, shortness of breath and wheezing. Cardiovascular: Positive for leg swelling. Negative for chest pain and palpitations. Neurological: Negative. Psychiatric/Behavioral: Negative. BP 126/84 (BP Location: Left arm, Patient Position: Sitting) Pulse 107 Temp 36.7 ??C (98 ??F) Resp 22 Ht 172.7 cm (5' 7.99 ) Wt (!) 169.8 kg (374 lb 4.8 oz) SpO2 97% BMI 56.93 kg/m?? Physical Exam Vitals reviewed. Constitutional: Appearance: She is morbidly obese. Cardiovascular: Rate and Rhythm: Normal rate and regular rhythm. Pulmonary: Breath sounds: No wheezing, rhonchi or rales. Musculoskeletal: Right lower leg: Edema present. Left lower leg: Edema present. Neurological: Mental Status: She is alert and oriented to person, place, and time. Assessment/Plan Diagnoses and all orders for this visit: Lymphedema (Primary) Comments: Will continue furosemide for now, open-ended Class 3 severe obesity due to excess calories without serious comorbidity with body mass index (BMI) of 50.0 to 59.9 in adult ([facility]) Comments: Discussed dietary changes OptaVia program discussed, also Nutrisystem NuMi Assessment & Plan: BMI Follow-up includes: nutrition counseling, exercise counseling and education provided. Moise Tinoco MD This office note has been partially dictated using [employer] software, and as a result portions of the record may have been created with this software. Occasional wrong-word or 'ukckf-o-aeop' substitutions may have occurred due to the inherent limitations of voice recognition software. Read the chartcarefully and recognize, using context, where substitutions have occurred. documented in this encounter Miscellaneous Notes * Assessment & Plan Note - Moise Tinoco MD - 09/10/2021 4:35 PM CDT Associated Problem(s): Class 3 severe obesity due to excess calories without serious comorbidity with body mass index (BMI) of 50.0 to 59.9 in adult ([facility]) BMI Follow-up includes: nutrition counseling, exercise counseling and education provided. documented in this encounter Plan of Treatment Not on file documented as of this encounter Visit Diagnoses Diagnosis Lymphedema- Primary Other noninfectious lymphedema Class 3 severe obesity due to excess calories without serious comorbidity with body mass index (BMI) of 50.0 to 59.9 in adult ([facility]) documented in this encounter Care Teams Guest Service Manager Relationship Specialty Start Date End Date Moise Tinoco MD [address] [place] [address] PCP - General Family Medicine 08/11/21 Martinez Boyle MD [address] [place] [address] Referring Physician Obstetrics and Gynecology 08/11/21 documented as of this encounter
--- OUTSIDE RECORDS SUMMARY | 2024-06-10 03:28 | XMS_ITS | Encounter Summary ---
Author Organization [facility] Address [address] [address] Care Team Providers Care Electronic Coils Supervisor Name Role Phone Moise Tinoco MD Primary Care Provider [phone] Martinez Boyle MD Unavailable [phone] Encounter Details Date Type Department Care Team (Late st Contact Info) Description 08/11/2021 12:00 PM RATTLE LEAK AND SQUEAK REPAIRER Lab [facility] Outpatient Lab at [address] [phone] Class 3 severe obesity due to excess calories without serious comorbidity with body mass index (BMI) of 50.0 to 59.9 in adult (HCC); Encounter for medical examination to establish care Social History Tobacco Use Types Packs/Day Years [...] on file Legal Sex Female 2:41 PM RATTLE LEAK AND SQUEAK REPAIRER Gender Identity Not on file Sexual Orientation Not on file 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 Not on file Not on file documented as of this encounter Plan of Treatment Not on file documented as of this encounter Visit Diagnoses Diagnosis Class 3 severe obesity due to excess calories without serious comorbidity with body mass index (BMI) of 50.0 to 59.9 in adult (HCC) Encounter for medical examination to establish care documented in this encounter Care Teams Electronic Coils Supervisor Relationship Specialty Start Date End Date Moise Tinoco MD [address] [place] [address] PCP - General Family Medicine 08/11/21 Martinez Boyle MD [address] [place] [address] Referring Physician Obstetrics and Gynecology 08/11/21 documented as of this encounter
--- OUTSIDE RECORDS SUMMARY | 2024-06-10 03:28 | XMS_ITS | Referral Summary ---
Author Organization [facility] [address] Address [address] [place] [id number] Care Team Providers Care Cone Operator Name Role Phone Moise Tinoco MD Primary Care Provider [phone] Martinez Boyle MD Unavailable [phone] Allergies Active Allergy Reactions Criticality Noted Date Comments Amoxicillin Diarrhea Low 08/10/2021 Medications losartan (COZAAR) 50 mg tabletIndication s:Hypertension, essential Take 1 tablet (50 mg total) by mouth daily 30 tablet 11 08/11/2021 Active furosemide (LASIX) 20 mg tabletIndication s:Hypertension, essential Take 1 tablet (20 mg total) by mouth daily 30 tablet 1 08/20/2021 Active Active Problems Problem Noted Date Diagnosed Date Hypertension, essential 02/08/2022 Lymphedema 09/10/2021 Encounter for medical examination to establish c are 08/11/2021 Assessment & Plan (08/13/2021 5:10 PM SPECIAL EDUCATION CURRICULUM SPECIALIST): A initial well visit to establish care has been performed today. Christine Siddiqi is not up to date on screening tests. She is in need of Cervical cancer screening- these have been ordered. She is not up to date on needed preventative vaccinations; She is in need of Tdap/Td, Influenza and Pneumonia (Prevnar-13 or Pneumovax-23). These have been ordered/arranged unless otherwise indicated. Will have her go through doxycycline course Likely venous stasis underlying as well. Weight loss should help Awaiting labs Class 3 severe obesity due t o excess calories without serious comorbidity with body mass index (BMI) of 50.0 to 59.9 in adult 08/11/2021 Assessment & Plan (09/10/2021 4:35 PM CDT): BMI Follow-up includes: nutrition counseling, exercise counseling and education provided. 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
--- OUTSIDE RECORDS SUMMARY | 2024-06-10 03:28 | XMS_ITS | Encounter Summary ---
Author Organization [facility] Address [address] [place] [address] [place] [id number] Care Team Providers Care Capping Machine Operator Name Role Phone Unknown, Notinfile Primary Care Provider Unavail able Reason for Visit * Reason Comments Allergic Reaction Encounter Details Date Type Department Care Team (Late st Contact Info) Description 08/10/2021 4:45 PM ENGINE REPAIRER SERVICE Office Visit [facility] [address] [address] Hien Hill NP [address] [place] [address] [address] [place], [place] [id number] Elevated blood-pressure reading without diagnosis of hypertension (Primary Dx); Leg erythema Social History Tobacco Use Types Packs/Day Years Used Date Smoking Tobacco: Never Assessed AUDIT-C Answer Date Recorded Q1: How often [...] on file Legal Sex Female 2:41 PM ENGINE REPAIRER SERVICE Gender Identity Not on file Sexual Orientation Not on file documented as of this encounter Last Filed Vital Signs Vital Sign Reading Time Taken Comments Blood Pressure 159/100 08/10/2021 5:14 PM ENGINE REPAIRER SERVICE Pulse 118 08/10/2021 5:01 PM ENGINE REPAIRER SERVICE Temperature 36.7 ??C (98 ??F) 08/10/2021 5:01 PM ENGINE REPAIRER SERVICE Respiratory Rate 20 08/10/2021 5:01 PM ENGINE REPAIRER SERVICE Oxygen Saturation 98% 08/10/2021 5:01 PM ENGINE REPAIRER SERVICE Inhaled Oxygen Concentration - - Weight 169.6 kg (374 lb) 08/10/2021 5:01 PM ENGINE REPAIRER SERVICE Height 172.7 cm (5' 8 ) 08/10/2021 5:01 PM ENGINE REPAIRER SERVICE Body Mass Index 56.87 08/10/2021 5:01 PM ENGINE REPAIRER SERVICE documented in this encounter Patient Instructions * Patient Instructions* Hien Hill NP - 08/10/2021 4:45 PM ENGINE REPAIRER SERVICE Images from the original note were not included. Patient Education Hypertension WHAT YOU NEED TO KNOW: Hypertension is high blood pressure (BP). Your BP is the force of your blood moving against the bundy of your arteries. Normal BP is less than 120/80. Prehypertension is between 120/80 and 139/89. Hypertension is 140/90 or higher. Hypertension causes your BP to get so high that your heart has to work much harder than normal. This can damage your heart. You can control hypertension with a healthy lifestyle or medicines. A controlled blood pressure helps protect your organs, such as your heart, lungs, brain, and kidneys. DISCHARGE INSTRUCTIONS: Call 911 for any of the following: ?? You have discomfort in your chest that feels like squeezing, pressure, fullness, or pain. ?? You become confused or have difficulty speaking. ?? You suddenly feel lightheaded or have trouble breathing. ?? You have pain or discomfort in your back, neck, jaw, stomach, or arm. Seek care immediately if: ?? You have a severe headache or vision loss. ?? You have weakness in an arm or leg. Contact your healthcare provider if: ?? You feel faint, dizzy, confused, or drowsy. ?? You have been taking your BP medicine and your BP is still higher than your healthcare provider says it should be. ?? You have questions or concerns about your condition or care. Medicines: You may need any of the following: ?? Medicine may be used to help lower your BP. You may need more than one type of medicine. Take the medicine exactly as directed. ?? Diuretics help decrease extra fluid that collects in your body. This will help lower your BP. You may urinate more often while you take this medicine. ?? Cholesterol medicine helps lower your cholesterol level. A low cholesterol level helps prevent heart disease and makes it easier to control your blood pressure. ?? Take your medicine as directed. Contact your healthcare provider if you think your medicine is not helping or if you have side effects. Tell him or her if you are allergic to any medicine. Keep a list of the medicines, vitamins, and herbs you take. Include the amounts, and when and why you take them. Bring the list or the pill bottles to follow-up visits. Carry your medicine list with you in case of an emergency. Follow up with your healthcare provider as directed: You will need to return to have your BP checked and to have other lab tests done. Write down your questions so you remember to ask them during your visits. Manage hypertension: Talk with your healthcare provider about these and other ways to manage hypertension: ?? Check your BP at home. Sit and rest for 5 minutes before you take your BP. Extend your arm and support it on a flat surface. Your arm should be at the same level as your heart. Follow the directions that came with your BP monitor. If possible, take at least 2 BP readings each time. Take your BP at least twice a day at the same times each day, such as morning and evening. Keep a record of your BP readings and bring it to your follow-up visits. Ask your healthcare provider what your BP should be. ?? Limit sodium (salt) as directed. Too much sodium can affect your fluid balance. Check labels to find low-sodium or il-rpsh-uzfmd foods. Some low-sodium foods use potassium salts for flavor. Too much potassium can also cause health problems. Your healthcare provider will tell you how much sodium and potassium are safe for you to have in a day. He or she may recommend that you limit sodium to 2,300 mg a day. ?? Follow the meal plan recommended by your healthcare provider. A dietitian or your provider can give you more information on low-sodium plans or the DASH (Dietary Approaches to Stop Hypertension) eating plan. The DASH plan is low in sodium, unhealthy fats, and total fat. It is high in potassium, calcium, and fiber. ?? Exercise to maintain a healthy weight. Exercise at least 30 minutes per day, on most days of theweek. This will help decrease your blood pressure. Ask your healthcare provider about the best exercise plan for you. ?? Decrease stress. This may help lower your BP. Learn ways to relax, such as deep breathing or listening to music. ?? Limit alcohol. Women should limit alcohol to 1 drink a day. Men should limit alcohol to 2 drinksa day. A drink of alcohol is 12 ounces of beer, 5 ounces of wine, or 1?? ounces of liquor. ?? Do not smoke. Nicotine and other chemicals in cigarettes and cigars can increase your BP and also cause lung damage. Ask your healthcare provider for information if you currently smoke and need help to quit. E-cigarettes or smokeless tobacco still contain nicotine. Talk to your healthcare provider before you use these products. ?? Manage any other health conditions you have. Health conditions such as diabetes can increase your risk for hypertension. Follow your healthcare provider's instructions and take all your medicines as directed. ?? 2017 [employer] Information is for End User's use only and may not be sold, redistributed or otherwise used for commercial purposes. All illustrations and images included in CareNotes?? are the copyrighted property of [employer] or [employer]. The above information is an unit aide only. It is not intended as medical advice for individual conditions or treatments. Talk to your doctor, nurse or pharmacist before following any medical regimen to see if it is safe and effective for you. NE REPAIRER SERVICE documented in this encounter Progress Notes * Hien Hill NP - 08/10/2021 4:45 PM CST Images from the original note were not included. Subjective/Objective Patient ID: Christine Siddiqi is a 30 y.o. female. Chief Complaint Allergic Reaction Pt presents to convenient care with complaints of bilateral lower leg redness. Pt states symptoms started on 08/05/21, she went to that day and they dx her with cellulitis and gave her bactrim whichshe has been taking as prescribed. Pt states the redness got better for approx. 1 day and then returned today. Pt smokes 1/2 pack per day. Pt works at [employer] and stands on her feet all day. Pt states she she got a pedicure on 3/1/22 and originally thought maybe she was having a reaction to the scrub they used but she has showered since then and redness came back today. Pt denies any foot or toe pain. Review of Systems Constitutional: Negative for appetite change, chills, fatigue and fever. No recent travel. Pedicure on 08/03/21. HENT: Negative for sore throat. Respiratory: Negative for cough, shortness of breath and wheezing. Cardiovascular: Negative for chest pain and palpitations. Gastrointestinal: Negative for diarrhea, nausea and vomiting. Musculoskeletal: Negative. Skin: Positive for rash (generalized erythema to bilateral lower legs, mild itching/burning associated with redness). Allergic/Immunologic: Negative for environmental allergies and food allergies. Neurological: Negative for headaches. Psychiatric/Behavioral: Negative for behavioral problems. Physical Exam Vitals and nursing note reviewed. Constitutional: Appearance: Normal appearance. Cardiovascular: Rate and Rhythm: Normal rate. Pulses: Normal pulses. Pulmonary: Effort: Pulmonary effort is normal. Musculoskeletal: Right lower le+ Pitting Edema present. Left lower le+ Pitting Edema present. Skin: General: Skin is warm and dry. Capillary Refill: Capillary refill takes less than 2 seconds. Comments: Generalized erythema, no warmth to touch. Neurological: Mental Status: She is alert and oriented to person, place, and time. Vitals: 08/10/21 1701 08/10/21 1714 BP: (!) 160/108 159/100 BP Location: Right arm Patient Position: Sitting Pulse: 118 Resp: 20 Temp: 36.7 ??C (98 ??F) TempSrc: Oral SpO2: 98% Weight: (!) 169.6 kg (374 lb) Height: 172.7 cm (5' 8 ) No exam data present No past medical history on file. Current Outpatient Medications: ??? sulfamethoxazole-trimethoprim (BACTRIM,SEPTRA) suspension 200-40 mg/5 mL, Take by mouth 2 (two)times a day, Disp: , Rfl: Allergies Allergen Reactions ??? Amoxicillin Diarrhea Assessment/Plan Diagnoses and all orders for this visit: Elevated blood-pressure reading without diagnosis of hypertension (Primary) Leg erythema -Appt made with Dr. Tinoco for tomorrow, to establish care and follow up. No results found for this or any previous visit (from the past 4 hour(s)). Patient Education: -Discussed smoking cessation -Discussed wearing compression socks To reduce swelling, you can: ?Walk around, and try not to sit or margarine maker one place for a long time ?Raise your legs up 3 or 4 times a day, for 30 minutes each time ?Do exercises to point your toes and feet down and up a few times each day To treat dry or itchy skin, you can: ?Wash your legs each day with a gentle cleanser. Do not use regular soap, which can make skin more dry. ?Use an unscented moisturizing cream or ointment while your skin is still damp. A petroleum-based cream or ointment works well. Ask your doctor or nurse before using any other type of cream or ointment, because some can cause a rash. If your skin problems are severe, your doctor or nurse might suggest special ointment, medicine, orbandages. How is vein disease treated? Doctors can use different treatments to treat symptoms and reduce swelling. These can include: ?Special socks, bandages, or devices: ??? Compression stockings are special socks that fit tightly over the ankle and leg. If your doctor or nurse recommends that you wear them, they will tell you which type to wear and how to put them on Disposition ??? Treatment plan including expectations, follow up, and return precautions discussed with patient/parent, verbalizes understanding. ??? Medication dosage, use, and potential adverse reactions discussed with patient/parent. ??? Advised to follow up with PCP if symptoms do not resolve as expected or sooner if condition worsens. ??? Signs/symptoms warranting ER evaluation reviewed. ??? Patient and/or guardian was given an opportunity to ask questions, questions answered. Hien Hill NP Cosigned by Patrick Jameson MD at 08/10/2021 11:25 PM ENGINE REPAIRER SERVICE NE REPAIRER SERVICE NE REPAIRER SERVICE documented in this encounter Plan of Treatment Not on file documented as of this encounter Visit Diagnoses Diagnosis Elevated blood-pressure reading without diagnosis of hypertension- Primary Elevated blood pressure reading without diagnosis of hypertension Leg erythema documented in this encounter Historical Medications * This list may reflect changes made after this encounter. sulfamethoxazole- trimethoprim (BACTRIM,SEPTRA) suspension 200-40 mg/5 mL Take by mouth 2 (two) times a day 08/11/2021 added in this encounter Care Teams Capping Machine Operator Relationship Specialty Start Date End Date Unknown, Notinfile PCP - General 08/10/21 08/10/21 documented as of this encounter
--- OUTSIDE RECORDS SUMMARY | 2024-06-10 03:28 | XMS_ITS | Clinical Summary ---
Author Organization [facility] [address] Address [address] [place] [id number] Care Team Providers Care Front Clerk Name Role Phone Moise Tinoco MD Primary Care Provider [phone] Martinez Boyle MD Unavailable [phone] Allergies Active Allergy Reactions Criticality Noted Date [...] 08/11/2021 Assessment & Plan (08/13/2021 5:10 PM DRAW BENCH OPERATOR HELPER): A initial well visit to establish care [...] Refused),06/05/2021(Deferred: Patient Refused),07/07/2020(Deferred: Patient Refused),06/05/2020(Deferred: Patient Refused) Surgical History Surgery Date Site/Laterality Comments SECTION 06/05/2008 - 06/04/2009 Family History Medical History Relation Name Comments Hepatitis Father COPD Maternal Grandfather Hypertension Maternal Grandfather No Known Problems Maternal Grandmother Asthma Mother Hypertension Mother No Known Problems Paternal Grandfather No Known Problems Paternal Grandmother Relation Name Status Comments Father Maternal Grandfather Maternal Grandmother Alive Mother Alive Paternal Grandfather Paternal Grandmother Social History Tobacco Use Types Packs/Day Years [...] on file Legal Sex Female 2:41 PM DRAW BENCH OPERATOR HELPER Gender Identity Not on file Sexual Orientation Not on file 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 Not on file Not on file Not on file Obstetrics History Last Filed Vital Signs Vital Sign Reading [...] 09/06/2021 3:59 PM CDT Plan of Treatment Health Maintenance Due Date Last Done Comments Cervical Cancer Screening 1988 Hepatitis C Screening 1988 Pneumococcal vaccine <65 (1 of 2 - PCV) 1994 DTaP/Tdap/Td Vaccine (1 - Tdap) 12/19/1999 Varicella Vaccines (1 of 2 - 13+ 2-dose series) 2001 Hepatitis B Screening 2006 Depression Screening 08/11/2022 08/11/2021, 08/11/2021 Regular Well Visit/Exam 18-64 08/11/2022 08/11/2021 Influenza Vaccine (#1) 2024 HPV Vaccines Aged Out No longer eligi ble based on patient's age to complete this topic Insurance [facility] Care Teams Front Clerk Relationship Specialty Start Date End Date Moise Tinoco MD [address] [place] [address] PCP - General Family Medicine 08/11/21 Martinez Boyle MD [address] [place] [place] [id number] Referring Physician Obstetrics and Gynecology 08/11/21
--- OUTSIDE RECORDS SUMMARY | 2024-06-10 03:28 | XMS_ITS | Encounter Summary ---
Author Organization [facility] Address [address] [facility] [address] [facility] [address] [place] [id number] Care Team Providers Care Night Shift Manager Name Role Phone Moise Tinoco MD Primary Care Provider [phone] Martinez Boyle MD Unavailable [phone] Reason for Visit * Reason Comments New Patient New patient Encounter Details Date Type Department Care Team (Late st Contact Info) Description 08/11/2021 11:00 AM RESIDENTIAL ENERGY AUDITOR Office Visit [facility] Primary Care at [address] [address] Moise Tinoco MD [address] [place] [address] [address] [place] [address] Encounter for medical examination to establish care (Primary Dx); Hypertension, essential; Class 3 severe obesity due to excess [...] on file Legal Sex Female 2:41 PM RESIDENTIAL ENERGY AUDITOR Gender Identity Not on file Sexual Orientation Not on file 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 Not on file Not on file documented as of this encounter Last Filed Vital Signs Vital Sign Reading Time Taken Comments Blood Pressure 138/84 08/11/2021 11:09 AM RESIDENTIAL ENERGY AUDITOR Pulse 100 08/11/2021 11:09 AM RESIDENTIAL ENERGY AUDITOR Temperature 37.1 ??C (98.8 ??F) 08/11/2021 11:[address] Respiratory Rate 18 08/11/2021 11:09 AM RESIDENTIAL ENERGY AUDITOR Oxygen Saturation 98% 08/11/2021 11:09 AM RESIDENTIAL ENERGY AUDITOR Inhaled Oxygen Concentration - - Weight 171 kg (377 lb) 08/11/2021 11:09 AM RESIDENTIAL ENERGY AUDITOR Height 172.7 cm (5' 8 ) 08/11/2021 11:09 AM RESIDENTIAL ENERGY AUDITOR Body Mass Index 57.32 08/11/2021 11:09 AM RESIDENTIAL ENERGY AUDITOR documented in this encounter Patient Instructions * Patient Instructions* Moise Tinoco MD - 08/11/2021 11:00 AM RESIDENTIAL ENERGY AUDITOR Images from the original note were not included. Doxy x 5 days Awaiting labs Patient Education Doxycycline (By mouth) Doxycycline ([id number]) Treats and prevents infections. Also used to prevent malaria and treat rosacea or severe acne. Thismedicine is a tetracycline antibiotic. Brand Name(s): Acticlate, Adoxa, Adoxa Jac 1/150, Avidoxy, Avidoxy DK, BenzoDox 30 Kit, BenzoDox 60Kit, Doryx, Doryx MPC, Monodox, Morgidox [id number], Morgidox [id number] Kit, Morgidox 1x50MG, Morgidox 1x50MG Kit, Morgidox [id number] There may be other brand names for this medicine. When This Medicine Should Not Be Used: This medicine is not right for everyone. Do not use it if you had an allergic reaction to doxycycline or another tetracycline antibiotic, or if you are or . How to Use This Medicine: Capsule, Delayed Release Capsule, Long Acting Capsule, Liquid, Tablet, Delayed Release Tablet ?? Your doctor will tell you how much medicine to use. Do not use more than directed. ?? Ask your pharmacist or doctor if you need to take this medicine with or without food. Some formscan be taken with food or milk, but others must be taken on an empty stomach. ?? Oracea?? capsules: This medicine must be taken on an empty stomach, at least 1 hour before or 2 hours after a meal. ?? Capsule: Swallow whole. Do not break, crush, chew, or open it. ?? Delayed-release tablets: You may also take this medicine by sprinkling the broken tablets onto room-temperature applesauce. Swallow this mixture right away. Do not chew it. Do not store the mixture for later use. You may take this medicine with food or milk to avoid stomach upset. ?? Oral liquid: Shake the bottle well just before each use. Measure the oral liquid medicine with amarked measuring spoon, oral syringe, or medicine cup. ?? Tablets: You may take this medicine with food or milk to avoid stomach irritation. To break a tablet, hold the tablet between your thumb and index fingers close to the appropriate scored line. Then, apply enough pressure to snap the tablet segments apart. Do not use the tablet if it does not break on the scored lines. ?? Take all of the medicine in your prescription to clear up your infection, even if you feel better after the first few doses. ?? Drink plenty of fluids to avoid throat problems, if you take the capsule or tablet form. ?? Malaria prevention: Start taking the medicine 1 or 2 days before you travel. Take the medicine every day during your trip. Keep taking it for 4 weeks after you return. However, do not use the medicine for longer than 4 months. ?? Do not use this medicine for more than 9 months if you are using it for rosacea. ?? Use only the brand of medicine your doctor prescribed. Other brands may not work the same way. ?? Read and follow the patient instructions that come with this medicine. Talk to your doctor or pharmacist if you have any questions. ?? Missed dose: Take a dose as soon as you remember. If it is almost time for your next dose, wait until then and take a regular dose. Do not take extra medicine to make up for a missed dose. ?? Store the medicine in a closed container at room temperature, away from heat, moisture, and direct light. Do not freeze the oral liquid. Drugs and Foods to Avoid: Ask your doctor or pharmacist before using any other medicine, including sljz-nty-zygqerk medicines, vitamins, and herbal products. ?? Some medicines can affect how doxycycline works. Tell your doctor if you are using any of the following: ?? Bismuth subsalicylate ?? Acne medicines (including isotretinoin) ?? control pills ?? Blood thinner (including warfarin) ?? Medicine for seizures (including carbamazepine, phenobarbital, phenytoin) ?? Medicine that contains aluminum, calcium, or iron (including an antacid or vitamin supplement) ?? Medicine to treat psoriasis (including acitretin) ?? Penicillin antibiotic ?? Stomach medicine Warnings While Using This Medicine: ?? This medicine may cause defects if either partner is using it during conception or . Tell your doctor right away if you or your partner becomes . control pills may notwork as well when used with this medicine. Use a second form of control to keep from getting . ?? Tell your doctor if you have kidney disease, liver disease, asthma, or an allergy to sulfites. Tell your doctor if you had surgery on your stomach, or if you have a history of yeast infections. ?? This medicine may cause the following problems: ?? Permanent change in tooth color (in children younger than 8 years old) ?? Increased pressure inside the head ?? Yeast infection ?? Immune system problems ?? This medicine can cause diarrhea. Call your doctor if the diarrhea becomes severe, does not stop, or is bloody. Do not take any medicine to stop diarrhea until you have talked to your doctor. Diarrhea can occur 2 months or more after you stop taking this medicine. ?? This medicine may make your skin more sensitive to sunlight. Wear sunscreen. Do not use sunlampsor tanning beds. ?? Tell any doctor or dentist who treats you that you are using this medicine. This medicine may affect certain medical test results. ?? Call your doctor if your symptoms do not improve or if they get worse. ?? Your doctor will do lab tests at regular visits to check on the effects of this medicine. Keep all appointments. ?? Keep all medicine out of the reach of children. Never share your medicine with anyone. Possible Side Effects While Using This Medicine: Call your doctor right away if you notice any of these side effects: ?? Allergic reaction: Itching or hives, swelling in your face or hands, swelling or tingling in your mouth or throat, chest tightness, trouble breathing ?? Blistering, peeling, red skin rash ?? Burning, pain, or irritation in your upper stomach or throat ?? Diarrhea that may contain blood ?? Fever, chills, cough, runny or stuffy nose, sore throat, body aches ?? Joint pain, fever, rash, and unusual tiredness or weakness ?? Severe headache, dizziness, vision changes ?? Sudden and severe stomach pain, nausea, vomiting, lightheadedness If you notice these less serious side effects, talk with your doctor: ?? Darkening of your skin, scars, teeth, or gums ?? Sores or white patches on your lips, mouth, or throat If you notice other side effects that you think are caused by this medicine, tell your doctor. Call your doctor for medical advice about side effects. You may report side effects to FDA at 6-047-JSQ-8177 ?? 2017 [employer] Information is for End User's use only and may not be sold, redistributed or otherwise used for commercial purposes. The above information is an paraprofessional aide teacher only. It is not intended as medical advice for individual conditions or treatments. Talk to your doctor, nurse or pharmacist before following any medical regimen to see if it is safe and effective for you. Patient Education How to Take a Blood Pressure WHAT YOU NEED TO KNOW: What is blood pressure? Blood pressure (BP) is the force or pressure that blood puts on the bundy of your arteries as it goes through your body. BP readings are usually written as 2 numbers. The first or top number is called systolic BP. The second or bottom number is called diastolic BP. Normal BPis less than 120/80. Why do I need to take my BP? You may need to take your BP at home if have hypertension (high BP) orhypotension (low BP). High BP increases your risk for stroke, heart attack, or kidney disease. Low BP may decrease blood flow to your organs, such as your brain and kidneys. This can damage your organs. You may need to take medicine to keep your BP at a normal level. Your healthcare provider can use the BP readings you take at home to make sure that your BP medicines are working. Ask your healthcare provider what your BP should be. How do I take my BP? You can take your BP at home with a digital BP monitor. Read the instructions that came with your BP monitor. The monitor comes with an adjustable cuff. Ask your healthcare provider if your cuff is the correct size. A cuff that is too small will cause a falsely high blood pressure. A cuff that is too big will cause a falsely low blood pressure. ?? Do not take a BP reading in an arm that is injured or has an IV or shunt. ?? Do not check your blood pressure within 30 minutes of smoking, drinking coffee, or exercising. These may affect your BP reading. ?? Rest quietly for 5 minutes before you take your BP. ?? Sit with your feet flat on the floor and your back against a chair. ?? Extend your arm and support it on a flat surface. Your arm should be at the same level as your heart. ?? Make sure all of the air is out of the cuff. Put the cuff about 1 inch (2.5 cm) above your elbow. Wrap the cuff snugly around your arm. The BP reading may not be correct if the cuff is too loose. ?? If you are using a wrist cuff, wrap the cuff snugly around your wrist. Hold your wrist at the same level as your heart. ?? Turn on the BP monitor and follow the directions. ?? Write down your BP, the date, the time, and which arm you used to take the BP. Take your blood pressure twice and write down both readings. These BP readings can be 1 minute apart. How often should I take my BP? Your healthcare provider may recommend that you take your BP at least twice a day. Take your BP at the same times each day, such as the morning and evening. Ask your healthcare provider when and how often you should take your BP. What else do I need to know? ?? Your healthcare provider will tell you what your BP should be. A BP of 120/80 may not be your goal. ?? Take your BP medicines as directed. Do not stop taking your medicines if your blood pressure is at your goal. A blood pressure at your goal means your medicine is working correctly. ?? Keep a log of your BP readings and bring it to your follow-up visits. ?? Bring your BP monitor to your follow-up visit. Your healthcare provider can check that you are using the monitor correctly. When should I contact my healthcare provider? ?? Your BP is higher or lower than your healthcare provider has told you it should be. ?? You have questions or concerns about your condition or care. CARE AGREEMENT: You have the right to help plan your care. Learn about your health condition and how it may be treated. Discuss treatment options with your caregivers to decide what care you want to receive. You always have the right to refuse treatment. The above information is an paraprofessional aide teacher only. It is not intended as medical advice for individual conditions or treatments. Talk to your doctor, nurse or pharmacist before following any medical regimen to see if it is safe and effective for you. ?? 2017 [employer] Information is for End User's use only and may not be sold, redistributed or otherwise used for commercial purposes. All illustrations and images included in CareNotes?? are the copyrighted property of [employer]. or [employer]. Patient Education DASH Eating Plan WHAT YOU NEED TO KNOW: What is the DASH Eating Plan? The DASH (Dietary Approaches to Stop Hypertension) Eating Plan is designed to help prevent or lower high blood pressure. It can also help to lower LDL (bad) cholesterol and decrease your risk for heart disease. The plan is low in sodium, sugar, unhealthy fats, and total fat. It is high in potassium, calcium, magnesium, and fiber. These nutrients are added when you eat more fruits, vegetables, and whole grains. What is my sodium limit for each day? Your dietitian will tell you how much sodium is safe for you to have each day. People with high blood pressure should have no more than 1,500 to 2,300 mg of sodium in a day. A teaspoon (tsp) of salt has 2,300 mg of sodium. This may seem like a difficult goal, but small changes to the foods you eat can make a big difference. Your healthcare provider or dietitian can help you create a meal plan that follows your sodium limit. How do I limit sodium? ?? Read food labels. Food labels can help you choose foods that are low in sodium. The amount of sodium is listed in milligrams (mg). The % Daily Value (DV) column tells you how much of your daily needs are met by 1 serving of the food for each nutrient listed. Choose foods that have less than 5% of the DV of sodium. These foods are considered low in sodium. Foods that have 20% or more of the DV of sodium are considered high in sodium. Avoid foods that have more than 300 mg of sodium in each serving. Choose foods that say low-sodium, reduced- sodium, or no salt added on the food label. ?? Avoid salt. Do not salt food at the table, and add very little salt to foods during cooking. Useherbs and spices, such as onions, garlic, and salt-free seasonings to add flavor to foods. Try lemon or chemehuevi juice or vinegar to give foods a tart flavor. Use hot peppers or a small amount of hot pepper sauce to add a spicy flavor to foods. ?? Ask about salt substitutes. Ask your healthcare provider if you may use salt substitutes. Some salt substitutes have ingredients that can be harmful if you have certain health conditions. ?? Choose foods carefully at restaurants. Meals from restaurants, especially fast food restaurants,are often high in sodium. Some restaurants have nutrition information that tells you the amount of sodium in their foods. Ask to have your food prepared with less, or no salt. What should I know about fats? ?? Include healthy fats. Examples are unsaturated fats and omega-3 fatty acids. Unsaturated fats are found in soybean, canola, olive, or sunflower oil, and liquid and soft tub margarines. Deeth-3 fatty acids are found in fatty fish, such as salmon, tuna, mackerel, and sardines. It is also found in flaxseed oil and ground flaxseed. ?? Avoid unhealthy fats. Do not eat unhealthy fats, such as saturated fats and trans fats. Saturated fats are found in foods that contain fat from animals. Examples are fatty meats, whole milk, butter, cream, and other dairy foods. It is also found in shortening, stick margarine, palm oil, and coconut oil. Trans fats are found in fried foods, crackers, chips, and baked goods made with margarine or shortening. Which foods should I include? With the DASH eating plan, you need to eat a certain number of servings from each food group. This will help you get enough of certain nutrients and limit others. The amount of servings you should eat depends on how many calories you need. Your dietitian can tell you how many calories you need. The number of servings listed next to the food groups below are for people who need about 2,000 calories each day. ?? Grains: 6 to 8 servings (3 of these servings should be whole-grain foods) ?? 1 slice of whole-grain bread ?? 1 ounce of dry cereal ? cup of cooked cereal, pasta, or brown rice ?? Vegetables and fruits: 4 to 5 servings of fruits and 4 to 5 servings of vegetables ?? 1 medium fruit ?? 1 cup of raw leafy vegetable ? cup of frozen, canned (no added salt), or chopped fresh vegetables ? cup of fresh, frozen, dried, or canned fruit (canned in light syrup or fruit juice) ? cup of vegetable or fruit juice ?? Dairy: 2 to 3 servings ?? 1 cup of nonfat (skim) or 1% milk ?? 1?? ounces of fat-free or low-fat, low-sodium cheese ?? 6 ounces of nonfat or low-fat yogurt ?? Lean meat, poultry, and fish: 6 ounces or less ?? Poultry (chicken, turkey) with no skin ?? Fish (especially fatty fish, such as salmon, fresh tuna, or mackerel) ?? Lean beef and pork (loin, round, extra lean hamburger) ?? Egg whites and egg substitutes ?? Nuts, seeds, and legumes: 4 to 5 servings each week ? cup of cooked beans and peas ?? 1?? ounces of unsalted nuts ?? 2 tablespoons of peanut butter or seeds ?? Sweets and added sugars: 5 or less each week ?? 1 tablespoon of sugar, jelly, or jam ? cup of sorbet or gelatin ?? 1 cup of lemonade ?? Fats: 2 to 3 servings each week ?? 1 teaspoon of soft margarine or vegetable oil ?? 1 tablespoon of mayonnaise ?? 2 tablespoons of salad dressing Which foods should I avoid? ?? Grains: ?? Baked goods, such as doughnuts, pastries, cookies, and biscuits (high in fat and sugar) ?? Mixes for cornbread and biscuits, packaged foods, such as bread stuffing, rice and pasta mixes, macaroni and cheese, and instant cereals (high in sodium) ?? Fruits and vegetables: ?? Regular, canned vegetables (high in sodium) ?? Sauerkraut, pickled vegetables, and other foods prepared in brine (high in sodium) ?? Fried vegetables or vegetables in butter or high-fat sauces ?? Fruit in cream or butter sauce (high in fat) ?? Dairy: ?? Whole milk, 2% milk, and cream (high in fat) ?? Regular cheese and processed cheese (high in fat and sodium) ?? Meats and protein foods: ?? Smoked or cured meat, such as corned beef, oleary, ham, hot dogs, and sausage (high in fat and sodium) ?? Canned beans and canned meats or spreads, such as potted meats, sardines, anchovies, and imitation seafood (high in sodium) ?? Deli or lunch meats, such as bologna, ham, turkey, and roast beef (high in sodium) ?? High-fat meat (T-bone steak, regular hamburger, and ribs) ?? Whole eggs and egg yolks (high in fat) ?? Other: ?? Seasonings made with salt, such as garlic salt, celery salt, onion salt, seasoned salt, meat tenderizers, and monosodium glutamate (MSG) ?? Miso soup and canned or dried soup mixes (high in sodium) ?? Regular soy sauce, barbecue sauce, teriyaki sauce, steak sauce, Worcestershire sauce, and most flavored vinegars (high in sodium) ?? Regular condiments, such as mustard, ketchup, and salad dressings (high in sodium) ?? Gravy and sauces, such as Lonnie or cheese sauces (high in sodium and fat) ?? Drinks high in sugar, such as soda or fruit drinks ?? Snack foods, such as salted chips, popcorn, pretzels, pork rinds, salted crackers, and salted nuts ?? Frozen foods, such as dinners, entrees, vegetables with sauces, and breaded meats (high in sodium) What other guidelines should I follow? ?? Maintain a healthy weight. Your risk for heart disease is higher if you are overweight. Your healthcare provider may suggest that you lose weight if you are overweight. You can lose weight by eating fewer calories and foods that have added sugars and fat. The DASH meal plan can help you do this.Decrease calories by eating smaller portions at each meal and fewer snacks. Ask your healthcare provider for more information about how to lose weight. ?? Exercise regularly. Regular exercise can help you reach or maintain a healthy weight. Regular exercise can also help decrease your blood pressure and improve your cholesterol levels. Get 30 minutes or more of moderate exercise each day of the week. To lose weight, get at least 60 minutes of exercise. Talk to your healthcare provider about the best exercise program for you. ?? Limit alcohol. Women should limit alcohol to 1 drink a day. Men should limit alcohol to 2 drinksa day. A drink of alcohol is 12 ounces of beer, 5 ounces of wine, or 1?? ounces of liquor. Where can I find more information? ?? [facility] [address] [address] [place] [address] Phone: Web Address: http://www.nhlbi.nih.gov/health/infoctr/index.htm CARE AGREEMENT: You have the right to help plan your care. Discuss treatment options with your caregivers to decidewhat care you want to receive. You always have the right to refuse treatment. The above informationis an paraprofessional aide teacher only. It is not intended as medical advice for individual conditions or treatments. Talk to your doctor, nurse or pharmacist before following any medical regimen to see if it is safe and effective for you. ?? 2017 [employer] Information is for End User's use only and may not be sold, redistributed or otherwise used for commercial purposes. All illustrations and images included in CareNotes?? are the copyrighted property of [employer] or [employer]. Thanks for coming in today! My medical assistants and I are thankful you have trusted us with your care, and hope that you received EXCELLENT care today! Please do not hesitate to call if you have any questions or concerns at [phone]. You may receive a phone call, text, MYCHART message, or e-mail asking about your care today. We would love to hear your feedback on how EXCELLENT your care wastoday! Wishing you better health, always. Dr. Tinoco DENTIAL ENERGY AUDITOR documented in this encounter Ordered Prescriptions Prescription Sig Dispense Quantity Refills Last Filled Start Date End Date losartan (COZAAR) 50 mg tabletIndications: Hypertension, essential Take 1 tablet (50 mg total) by mouth daily 30 tablet 11 08/11/2021 doxycycline (VIBRAMYCIN) 100 mg capsule Take 1 tablet/capsu le (100 mg total) by mouth 2 (two) times a day for 7 days 14 tablet/capsule 08/11/2021 08/17/2021 furosemide (LASIX) 20 mg tabletIndications: Hypertension, essential Take 1 tablet (20 mg total) by mouth daily 5 tablet 08/11/2021 08/20/2021 documented in this encounter Progress Notes * Moise Tinoco MD - 08/11/2021 11:00 AM CST SUBJECTIVE: 30 y.o. female who presents today to establish care with me. She has been having problems with her right lower leg, and was seen at , prescribed Bactrim DS a couple weeks ago. Current Outpatient Medications Medication Sig Dispense Refill ??? sulfamethoxazole-trimethoprim (BACTRIM,SEPTRA) suspension 200-40 mg/5 mL Take by mouth 2 (two) times a day (Patient not taking: Reported on 08/11/2021) No current facility-administered medications for this visit. Allergies: Amoxicillin Patient's last menstrual period was 07/12/2021 (approximate). History reviewed. No pertinent past medical history. Past Surgical History: Procedure Laterality Date ??? SECTION Family History Problem Relation Age of Onset ??? Asthma Mother ??? Hypertension Mother ??? Hepatitis Father ??? No Known Problems Maternal Grandmother ??? COPD Maternal Grandfather ??? Hypertension Maternal Grandfather ??? No Known Problems Paternal Grandmother ??? No Known Problems Paternal Grandfather Social History Tobacco Use ??? Smoking status: Current Every Day Smoker Packs/day: 0.50 Years: 19.00 Pack years: 9.50 Types: Cigarettes Start date: 2002 ??? Smokeless tobacco: Never Used Substance Use Topics ??? Drug use: Never Review of Systems Constitutional: Negative for chills and fever. HENT: Negative. Eyes: Negative. Respiratory: Negative. Cardiovascular: Negative. Gastrointestinal: Negative. Genitourinary: Negative. Musculoskeletal: Positive for back pain. Negative for falls, joint pain, myalgias and neck pain. Skin: Negative. Neurological: Negative. Endo/Heme/Allergies: Negative. Psychiatric/Behavioral: Negative. Negative for depression. OBJECTIVE: The patient appears well, alert, oriented x 3, in no distress. BP 138/84 (BP Location: Left arm, Patient Position: Sitting) Pulse 100 Temp 37.1 ??C (98.8 ??F)(Temporal) Resp 18 Ht 172.7 cm (5' 8 ) Wt (!) 171 kg (377 lb) LMP 07/12/2021 (Approximate) SpO2 98% BMI 57.32 kg/m?? Physical Exam Vitals reviewed. Constitutional: Appearance: She is well-developed. She is morbidly obese. HENT: Head: Normocephalic and atraumatic. Right Ear: External ear normal. Left Ear: External ear normal. Eyes: Conjunctiva/sclera: Conjunctivae normal. Pupils: Pupils are equal, round, and reactive to light. Cardiovascular: Rate and Rhythm: Normal rate and regular rhythm. Heart sounds: Normal heart sounds. No murmur heard. No friction rub. No gallop. Pulmonary: Effort: Pulmonary effort is normal. Breath sounds: Normal breath sounds. Abdominal: General: Bowel sounds are normal. Palpations: Abdomen is soft. Tenderness: There is no abdominal tenderness. Musculoskeletal: General: Normal range of motion. Cervical back: Normal range of motion and neck supple. Skin: General: Skin is warm and dry. Capillary Refill: Capillary refill takes less than 2 seconds. Neurological: Mental Status: She is alert and oriented to person, place, and time. Psychiatric: Behavior: Behavior normal. Diagnoses and all orders for this visit: Encounter for medical examination to establish care (Primary) Assessment & Plan: A initial well visit to establish care has been performed today. Christine Siddiqi is not up to date on screening tests. She is in need of Cervical cancer screening- these have been ordered. She is notup to date on needed preventative vaccinations; She is in need of Tdap/Td, Influenza and Pneumonia (Prevnar-13 or Pneumovax-23). These have been ordered/arranged unless otherwise indicated. Will have her go through doxycycline course Likely venous stasis underlying as well. Weight loss should help Awaiting labs Hypertension, essential - losartan (COZAAR) 50 mg tablet; Take 1 tablet (50 mg total) by mouth daily - furosemide (LASIX) 20 mg tablet; Take 1 tablet (20 mg total) by mouth daily - TSH; Future - Lipid panel; Future - Comprehensive metabolic panel; Future - CBC with auto differential; Future Class 3 severe obesity due to excess calories without serious comorbidity with body mass index (BMI) of 50.0 to 59.9 in adult (HCC) - Vitamin D 25 hydroxy; Future Other orders - doxycycline (VIBRAMYCIN) 100 mg capsule; Take 1 tablet/capsule (100 mg total) by mouth 2 (two) times a day for 7 days DENTIAL ENERGY AUDITOR documented in this encounter Miscellaneous Notes * Assessment & Plan Note - Moise Tinoco MD - 08/13/2021 5:09 PM RESIDENTIAL ENERGY AUDITOR Associated Problem(s): Encounter for medical examination to establish care A initial well visit to establish care has been performed today. Christine Siddiqi is not up to date on screening tests. She is in need of Cervical cancer screening- these have been ordered. She is notup to date on needed preventative vaccinations; She is in need of Tdap/Td, Influenza and Pneumonia (Prevnar-13 or Pneumovax-23). These have been ordered/arranged unless otherwise indicated. Will have her go through doxycycline course Likely venous stasis underlying as well. Weight loss should help Awaiting labs DENTIAL ENERGY AUDITOR documented in this encounter Plan of Treatment Not on file documented as of this encounter Results * (ABNORMAL) CBC with auto differential (08/11/2021 11:44 AM RESIDENTIAL ENERGY AUDITOR) Pathologist [facility] WBC 6.6 3.8 - 9.9 K/cumm [facility] Hgb 11.9 11.9 - 15.5 g/dL [facility] Hct 39.1 35.6 - 45.5 % [facility] Plt 324 150 - 400 K/cumm [facility] MPV 11.9 9.1 - 12.3 fL [facility] RBC 4.75 3.90 - 5.20 M/cumm [facility] MCV 82.3 81.3 - 96.4 fL [facility] MCH 25.1(L) 27.1 - 33.3 pg [facility] MCHC 30.4(L) 32.3 - 35.7 g/dL [facility] RDW CV 14.9 11.1 - 14.9 % [facility] RDW SD 44.3 35.7 - 48.1 fL [facility] NRBC abs 0.00 0.00 - 0.01 K/cumm [facility] Blood 08/11/2021 11:4 4 AM RESIDENTIAL ENERGY AUDITOR 08/11/2021 7:21 PM RESIDENTIAL ENERGY AUDITOR us Moise Tinoco MD LAB BLOOD ORDERABLES Final Result [facility] [id number] Department of Laboratories [place], [place] [id number] * Comprehensive metabolic panel (08/11/2021 11:44 AM RESIDENTIAL ENERGY AUDITOR) Pathologist [facility] Sodium 139 135 - 145 mmol/L [facility] Potassium, pl 4.3 3.3 - 4.9 mmol/L [facility] Chloride 101 97 - 110 mmol/L [facility] CO2 26 22 - 32 mmol/L [facility] Anion gap 12 2 - 15 mmol/L [facility] BUN 11 8 - 25 mg/dL [facility] Creatinine 0.60 0.60 - 1.10 mg/dL [facility] Glucose 92 70 - 199 mg/dL [facility] Comment: Interpretive Data Fasting glucose >/= 126 mg/dl is diagnostic for diabetes. ?? Fasting is defined as no caloric intake for at least 8 hours. Fasting glucose between 100 mg/dl to 125 mg/dl is diagnostic of prediabetes. In a patient with classic symptoms of hyperglycemia or hyperglycemic crisis, a random glucose >/= 200 mg/dl is diagnostic for diabetes. In the absence of unequivocal hyperglycemia, results should be confirmed by repeat testing. The classification and Diagnosis of Diabetes Diabetes Care 2017;40 (Suppl. 1):S11. Current interpretive data was last revised 2017. Calcium 9.3 8.5 - 10.3 mg/dL [facility] Bilirubin, total 0.2 0.1 - 1.2 mg/dL [facility] Protein, pl 8.2 6.5 - 8.5 g/dL [facility] Albumin 4.3 3.5 - 5.0 g/dL [facility] Alk phos 82 40 - 130 Units/L [facility] ALT 35 7 - 45 Units/L [facility] AST 35 10 - 45 Units/L [facility] Blood 08/11/2021 11:4 4 AM RESIDENTIAL ENERGY AUDITOR 08/11/2021 7:21 PM RESIDENTIAL ENERGY AUDITOR Moise Tinoco MD LAB BLOOD ORDERABLES Final Result [facility] [address] Department [place] [address] * Lipid panel (08/11/2021 11:44 AM RESIDENTIAL ENERGY AUDITOR) Cholesterol 154 30 - 199 mg/dL [facility] Comment: Interpretive Data Ages < or = 19 years ??Acceptable: ? <170 mg/dL ??Borderline high: ??170-199 mg/dL ??High: ? >or= 200 mg/dL Ages > or = 20 years ??Desirable: ?<200 mg/dL ??Borderline high: ??200-239 mg/dL ??High: ? >or= 240 mg/dL Literature References: 1. Expert Panel on Integrated Guidelines for Cardiovascular Health and Risk Reduction in Children and Adolescents. Pediatrics 2011;128:S213 2. NCEP Expert Panel. Circulation 2004;110:227 Current Interpretive Data was last revised on 2018. Triglycerides 106 <=149 mg/dL [facility] Comment: Interpretive Data Ages < or = 9 years ??Acceptable: ? <75 mg/dL ??Borderline high: ??75-99 mg/dL ??High: ? >or= 100 mg/dL Ages 10 to 20 years ??Acceptable: ? <90 mg/dL ??Borderline high: ??90-129 mg/dL ??High: ? >or= 130 mg/dL Ages > or = 20 years ??Desirable: ?<150 mg/dL ??Borderline high: ??150-199 mg/dL ??High: ? 200-499 mg/dL ?Very high: ?? >or= 499 mg/dL Literature References: 1. Expert Panel on Integrated Guidelines for Cardiovascular Health and Risk Reduction in Children and Adolescents. Pediatrics 2011;128:S213 2. NCEP Expert Panel. Circulation 2004;110:227 Current Interpretive Data was last revised on 2018. HDL 44 >=40 mg/dL [facility] Comment: Interpretive Data Ages < or = 19 years ??Acceptable: ? >45 mg/dL ??Borderline low: ?? 40-45 mg/dL ??Low: ? <40 mg/dL Ages > or = 20 years ??Desirable: ?>or= 60 mg/dL ??Low: ? <40 mg/dL Literature References: 1. Expert Panel on Integrated Guidelines for Cardiovascular Health and Risk Reduction in Children and Adolescents. Pediatrics 2011;128:S213 2. NCEP Expert Panel. Circulation 2004;110:227 Current Interpretive Data was last revised on 2018. LDL, calculated 89 <=129 mg/dL [facility] Comment: Interpretive Data Ages < or = 19 years ??Acceptable: ? <110 mg/dL ??Borderline high: ??110-129 mg/dL ??High: ?>or= 130 mg/dL Ages > or = 20 years ??Optimal: ? <100 mg/dL ??Near optimal: ?100-129 mg/dL ??Borderline high: ?? 130-159 mg/dL ??High: ?>160 mg/dL Literature References: 1. Expert Panel on Integrated Guidelines for Cardiovascular Health and Risk Reduction in Children and Adolescents. Pediatrics 2011;128:S213 2. NCEP Expert Panel. Circulation 2004;110:227 Current Interpretive Data was last revised on 2018. Non-HDL Cholesterol 110 mg/dL [facility] Comment: Interpretive Data Ages < or = 19 years ??Acceptable: ?<120 mg/dL ??Borderline high: ??120-144 mg/dL ??High: ?>145 mg/dL Ages > or = 20 years ??When triglycerides are >200 mg/dL, Non-HDL cholesterol is a secondary target of ? therapy with treatment goals that are 30 mg/dL greater than the LDL cholesterol target. ? Literature References: 1. Expert Panel on Integrated Guidelines for Cardiovascular Health and Risk Reduction in Children and Adolescents. Pediatrics 2011;128:S213 2. NCEP Expert Panel. Circulation 2004;110:227 Current Interpretive Data was last revised on 2018. Chol/HDL ratio 4 [facility] Blood 08/11/2021 11:4 4 AM RESIDENTIAL ENERGY AUDITOR 08/11/2021 7:21 PM RESIDENTIAL ENERGY AUDITOR Moise Tinoco MD LAB BLOOD ORDERABLES Final Result [facility] [address] Department [place] [address] * TSH (08/11/2021 11:44 AM RESIDENTIAL ENERGY AUDITOR) Thyroid Stimulating Hormone 3.69 0.30 - 4.20 mcIUnit/mL [facility] Blood 08/11/2021 11:4 4 AM RESIDENTIAL ENERGY AUDITOR 08/11/2021 7:21 PM RESIDENTIAL ENERGY AUDITOR Moise Tinoco MD LAB BLOOD ORDERABLES Final Result [facility] [address] Department [place] [address] * (ABNORMAL) Vitamin D 25 hydroxy (08/11/2021 11:44 AM RESIDENTIAL ENERGY AUDITOR) Vitamin D 25-OH 26(L) 30 - 80 ng/mL [facility] Blood 08/11/2021 11:4 4 AM RESIDENTIAL ENERGY AUDITOR 08/11/2021 7:21 PM RESIDENTIAL ENERGY AUDITOR Moise Tinoco MD LAB BLOOD ORDERABLES Final Result Performing Organization Address City/[facility] Co de Phone Number [facility] [phone] [place] [address] documented in this encounter Visit Diagnoses Diagnosis Encounter for medical examination to establish care- Primary Hypertension, essential Unspecified essential hypertension Class 3 severe obesity due to excess calories without serious comorbidity with body mass index (BMI) of 50.0 to 59.9 in adult (HCC) documented in this encounter Discontinued Medications Medication Sig Discontinue Reason Start Date End Da te sulfamethoxazole-trimetho prim (BACTRIM,SEPTRA) suspension 200-40 mg/5 mL Take by mouth 2 (two) times a day 08/11/2021 documented as of this encounter Care Teams Night Shift Manager Relationship Specialty Start Date End Date Moise Tinoco MD [address] [place] [address] PCP - General Family Medicine 08/11/21 Martinez Boyle MD [address] [place] [address] Referring Physician Obstetrics and Gynecology 08/11/21 documented as of this encounter
--- OUTSIDE RECORDS SUMMARY | 2024-06-10 03:28 | XMS_ITS | Encounter Summary ---
Author Organization [facility] Healthcare Address [address] [place] [address] Care Team Providers Care Registered Nurse Behavioral Health Name Role Phone Moise Tinoco MD Primary Care Provider [phone] Martinez Boyle MD Unavailable [phone] Encounter Details Date Type Department Care Team (Late st Contact Info) Description 08/11/2021 6:55 PM COIL WINDING SUPERVISOR Lab [address] [id number] Hypertension, essential; Class 3 severe obesity due [...] on file Legal Sex Female 2:41 PM COIL WINDING SUPERVISOR Gender Identity Not on file Sexual Orientation Not on file 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 Not on file Not on file documented as of this encounter Plan of Treatment Not on file documented as of this encounter Procedures Procedure Name Priority Date/Time Associated Diagnosis Comments EGFR Routine 08/11/2021 11:44 AM COIL WINDING SUPERVISOR Hypertension, essential DIFFERENTIAL AUTO Routine 08/11/2021 11: 44 AM COIL WINDING SUPERVISOR Hypertension, essential CBC WITH AUTO DIFFERENTIAL Routine 08/11/2021 11:44 AM COIL WINDING SUPERVISOR Hypertension, essential VITAMIN D 25 HYDROXY Routine 08/11/2021 11:44 AM COIL WINDING SUPERVISOR Class 3 severe obesity due to excess calories without serious comorbidity with body mass index (BMI) of 50.0 to 59.9 in adult (HCC) TSH Routine 08/11/2021 11:44 AM COIL WINDING SUPERVISOR Hypertension, essential LIPID PANEL Routine 08/11/2021 11:44 AM COIL WINDING SUPERVISOR Hypertension, essential COMPREHENSIVE METABOLIC PANEL Routine 08/11/2021 11:44 AM COIL WINDING SUPERVISOR Hypertension, essential documented in this encounter Results * eGFR (08/11/2021 11:44 AM COIL WINDING SUPERVISOR) [facility] eGFR 122 mL/min/1. 73 m2 [facility] Comment: Interpretive Data Reference Interval Normal ?>/= 90 mL/min/1.73m2 Mildly decreased* ? 60 - 89 mL/min/1.73m2 Mildly to moderately decreased ?45 - 59 mL/min/1.73m2 Moderately to severely decreased ??30 - 44 mL/min/1.73m2 Severely decreased ?15 - 29 mL/min/1.73m2 Kidney Failure ?< 15 ??mL/min/1.73m2 *Relative to young adult level Estimated glomerular filtration rate is determined by the 2020 CKD-EPI equation recommended by the National Kidney Foundation (A Unifying Approach to GFR Estimation: Recommendations of the NKF-ASK Task Force on Reassessing the Inclusion of Race in Diagnosing Kidney Disease, JASN 2020). The CKD-EPI equation should not be used for patients with unstable renal function and has not been validated in children and those over 70. Current interpretive data was last reviewed 2021. Blood 08/11/2021 11:4 4 AM COIL WINDING SUPERVISOR 08/11/2021 7:23 PM COIL WINDING SUPERVISOR Moise Tinoco MD LAB BLOOD ORDERABLES Final Result [facility] [address] Department [place] [address] * Differential, auto (08/11/2021 11:44 AM COIL WINDING SUPERVISOR) Neutrophil abs 4.5 1.7 - 6.5 K/cumm [facility] Imm gran abs 0.0 0.0 - 0.1 K/cumm [facility] Lymphocyte abs 1.6 0.8 - 3.3 K/cumm [facility] Monocyte abs 0.4 0.2 - 0.8 K/cumm [facility] Eosinophil abs 0.1 0.0 - 0.5 K/cumm [facility] Basophil abs 0.0 0.0 - 0.1 K/cumm [facility] Neutrophil pct 67.2 % [facility] Comment: Interpretive Data Percent cell count reference ranges are not reported, since discordance with absolute values may lead to misinterpretation of CBC data. Current Interpretive Data was last revised on 2017. Imm gran pct 0.3 % [facility] Comment: Interpretive Data Percent cell count reference ranges are not reported, since discordance with absolute values may lead to misinterpretation of CBC data. Current Interpretive Data was last revised on 2017. Lymphocyte pct 24.2 % [facility] Comment: Interpretive Data Percent cell count reference ranges are not reported, since discordance with absolute values may lead to misinterpretation of CBC data. Current Interpretive Data was last revised on 2017. Monocyte pct 6.3 % [facility] Comment: Interpretive Data Percent cell count reference ranges are not reported, since discordance with absolute values may lead to misinterpretation of CBC data. Current Interpretive Data was last revised on 2017. Eosinophil pct 1.7 % [facility] Comment: Interpretive Data Percent cell count reference ranges are not reported, since discordance with absolute values may lead to misinterpretation of CBC data. Current Interpretive Data was last revised on 2017. Basophil pct 0.3 % [facility] Comment: Interpretive Data Percent cell count reference ranges are not reported, since discordance with absolute values may lead to misinterpretation of CBC data. Current Interpretive Data was last revised on 2017. Blood 08/11/2021 11:4 4 AM COIL WINDING SUPERVISOR 08/11/2021 7:21 PM COIL WINDING SUPERVISOR Moise Tinoco MD LAB BLOOD ORDERABLES Final Result Performing Organization Address [facility] Co de Phone Number [facility] [phone] [address] [facility] [place] [address] * (ABNORMAL) Vitamin D 25 hydroxy (08/11/2021 11:44 AM COIL WINDING SUPERVISOR) Vitamin D 25-OH 26(L) 30 - 80 ng/mL [facility] Blood 08/11/2021 11:4 4 AM COIL WINDING SUPERVISOR 08/11/2021 7:21 PM COIL WINDING SUPERVISOR Moise Tinoco MD LAB BLOOD ORDERABLES Final Result Performing Organization Address [facility] Co de Phone Number [facility] [phone] [address] [facility] [place] [address] * TSH (08/11/2021 11:44 AM COIL WINDING SUPERVISOR) Thyroid Stimulating Hormone 3.69 0.30 - 4.20 mcIUnit/mL [facility] Blood 08/11/2021 11:4 4 AM COIL WINDING SUPERVISOR 08/11/2021 7:21 PM COIL WINDING SUPERVISOR Moise Tinoco MD LAB BLOOD ORDERABLES Final Result Performing Organization Address [facility] Co de Phone Number [facility] [address] [address] [facility] [place] [address] * Lipid panel (08/11/2021 11:44 AM COIL WINDING SUPERVISOR) [facility] Signature Cholesterol 154 30 - 199 mg/dL [facility] Comment: Interpretive Data Ages < or = [...] revised on 2018. Triglycerides 106 <=149 mg/dL [facility] Comment: Interpretive Data Ages < or = [...] on 2018. HDL 44 >=40 mg/dL [facility] Comment: Interpretive Data Ages < or = [...] 2018. LDL, calculated 89 <=129 mg/dL [facility] Comment: Interpretive Data Ages < or = [...] revised on 2018. Non-HDL Cholesterol 110 mg/dL [facility] Comment: Interpretive Data Ages < or = [...] [facility] Blood 08/11/2021 11:4 4 AM COIL WINDING SUPERVISOR 08/11/2021 7:21 PM COIL WINDING SUPERVISOR us Moise Tinoco MD LAB [place] [address] [address] Department [place] [address] * Comprehensive metabolic panel (08/11/2021 11:44 AM COIL WINDING SUPERVISOR) Sodium 139 135 - 145 mmol/L [facility] Potassium, pl 4.3 3.3 - 4.9 mmol/L [facility] Chloride 101 97 - 110 mmol/L [facility] CO2 26 22 - 32 mmol/L [facility] Anion gap 12 2 - 15 mmol/L [facility] BUN 11 8 - 25 mg/dL [facility] Creatinine 0.60 0.60 - 1.10 mg/dL [facility] Glucose 92 70 - 199 mg/dL [facility] Comment: Interpretive Data Fasting glucose >/= 126 [...] [facility] Blood 08/11/2021 11:4 4 AM COIL WINDING SUPERVISOR 08/11/2021 7:21 PM COIL WINDING SUPERVISOR Moise Tinoco MD LAB BLOOD ORDERABLES Final Result Performing Organization Address [facility] Co de Phone Number [facility] [phone] [employer] [place] [address] * (ABNORMAL) CBC with auto differential (08/11/2021 11:44 AM COIL WINDING SUPERVISOR) WBC 6.6 3.8 - 9.9 K/cumm [facility] Hgb 11.9 11.9 - 15.5 g/dL [facility] Hct 39.1 35.6 - 45.5 % [facility] Plt 324 150 - 400 K/cumm [facility] MPV 11.9 9.1 - 12.3 fL [facility] RBC 4.75 3.90 - 5.20 M/cumm [facility] MCV 82.3 81.3 - 96.4 fL [facility] MCH 25.1(L) 27.1 - 33.3 pg [facility] MCHC 30.4(L) 32.3 - 35.7 g/dL [facility] RDW CV 14.9 11.1 - 14.9 % [facility] RDW SD 44.3 35.7 - 48.1 fL [facility] NRBC abs 0.00 0.00 - 0.01 K/cumm [facility] Blood 08/11/2021 11:4 4 AM COIL WINDING SUPERVISOR 08/11/2021 7:21 PM COIL WINDING SUPERVISOR us Moise Tinoco MD LAB BLOOD ORDERABLES Final Result Performing Organization Address City/[facility]/ZIP Co de Phone Number [facility] [phone] [address] [facility] [place] [address] documented in this encounter Visit Diagnoses Diagnosis Hypertension, essential Unspecified essential hypertension Class 3 severe obesity due to excess calories without serious comorbidity with body mass index (BMI) of 50.0 to 59.9 in adult (HCC) documented in this encounter Care Teams Registered Nurse Behavioral Health Relationship Specialty Start Date End Date Moise Tinoco MD [address] [place] [address] PCP - General Family Medicine 08/11/21 Martinez Boyle MD [address] [place] [address] Referring Physician Obstetrics and Gynecology 08/11/21 documented as of this encounter
--- OUTSIDE RECORDS SUMMARY | 2024-06-10 03:28 | XMS_ITS | Encounter Summary ---
Author Organization [facility] Address [address] [facility] [address] [place] [address] Care Team Providers Care Slot Machine Mechanic Name Role Phone Moise Tinoco MD Primary Care Provider [phone] Martinez Boyle MD Unavailable [phone] Encounter Details Date Type Department Care Team (Late st Contact Info) Description 08/17/2021 Telephone [facility] Primary Care at [address] [phone] Moise Tinoco MD [address] [place] [address] [address] [place] [address] Social History Tobacco Use Types Packs/Day Years [...] on file Legal Sex Female 2:41 PM GENERATOR OPERATOR Gender Identity Not on file Sexual Orientation Not on file 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 * Addendum Note - Moise Tinoco MD - 08/17/2021 4:39 PM CDTAddended by: MOISE TINOCO on: 08/17/2021 04:39 PM Modules accepted: Orders * Telephone Encounter - Moise Tinoco MD - 08/17/2021 4:38 PM CDT Will do another week. Continue elevation of legs above heart level three times a day, 30 minutes per episode. * Telephone Encounter - Teodoro Potter - 08/17/2021 9:54 AM CDT Patient called and stated that she is on her last day of her antibiotic for her legs. She had seen improvement but has noticed that they are looking as though they are starting bad again. She also has finishe her water pill. She would like to know if she could get another script or would you like to see her. Please advise documented in this encounter Plan of Treatment Not on file documented as of this encounter Visit Diagnoses Not on filedocumented in this encounter Discontinued Medications Medication Sig Discontinue Reason Start Date End Da te doxycycline (VIBRAMYCIN) 100 mg capsule Take 1 tablet/capsule (100 mg total) by mouth 2 (two) times a day for 7 days Reorder 08/11/2021 08/17/2021 documented as of this encounter Care Teams Slot Machine Mechanic Relationship Specialty Start Date End Date Moise Tinoco MD [address] [place] [address] PCP - General Family Medicine 08/11/21 Martinez Boyle MD [address] [place] [address] Referring Physician Obstetrics and Gynecology 08/11/21 documented as of this encounter
--- OUTSIDE RECORDS SUMMARY | 2024-06-10 03:28 | XMS_ITS | Encounter Summary ---
Author Organization [facility] Address [address] [facility] [address] [place] [address] Care Team Providers Care Carrier Operator Name Role Phone Moise Tinoco MD Primary Care Provider [phone] Martinez Boyle MD Unavailable [phone] Encounter Details Date Type Department Care Team (Late st Contact Info) Description 08/20/2021 Orders Only [facility] Primary Care at [address] [address] Moise Tinoco MD [address] [place] [address] [address] [place] [address] Hypertension, essential Social History Tobacco Use Types Packs/Day Years [...] on file Legal Sex Female 2:41 PM SHIRRING MACHINE OPERATOR Gender Identity Not on file Sexual Orientation Not on file 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 Not on file documented as of this encounter Ordered Prescriptions Prescription Sig Dispense Quantity Refills Last Filled Start Date End Date furosemide (LASIX) 20 mg tabletIndications:H ypertension, essential Take 1 tablet (20 mg total) by mouth daily 30 tablet 1 08/20/2021 documented in this encounter Plan of Treatment Not on file documented as of this encounter Visit Diagnoses Diagnosis Hypertension, essential Unspecified essential hypertension documented in this encounter Discontinued Medications Medication Sig Discontinue Reason Start Date End Da te furosemide (LASIX) 20 mg tabletIndications:Hypert ension, essential Take 1 tablet (20 mg total) by mouth daily Reorder 08/11/2021 08/20/2021 documented as of this encounter Care Teams Carrier Operator Relationship Specialty Start Date End Date Moise Tinoco MD [address] [place] [address] PCP - General Family Medicine 08/11/21 Martinez Boyle MD [address] [place] [address] Referring Physician Obstetrics and Gynecology 08/11/21 documented as of this encounter
--- OUTSIDE RECORDS SUMMARY | 2024-06-10 03:28 | XMS_ITS | Encounter Summary ---
Author Organization [facility] Address [address] [facility] [address] [place] [address] Care Team Providers Care Adjustment Clerk Name Role Phone Moise Tinoco MD Primary Care Provider [phone] Martinez Boyle MD Unavailable [phone] Encounter Details Date Type Department Care Team (Late st Contact Info) Description 08/20/2021 Telephone [facility] Primary Care at [address] [address] Moise Tinoco MD [address] [place] [address] [address] [place] [address] Social History Tobacco Use Types [...] on file Legal Sex Female 2:41 PM PHYSICAL THERAPY ASSISTANT Gender Identity Not on file Sexual Orientation Not on file 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 Pt has an appt on 09/06/[address] Tinoco * Telephone Encounter - Pastora Singer NP - 08/23/2021 12:10 PM CDT If she is ok with it, I will place referral to the Lymphedema clinic as mentioned prior from Dr. Tinoco. If she feels it has worsened or she would like to be seen, please help her make a follow up appointment with available provider. * Telephone Encounter - Michelle Martínez MA - 08/23/2021 11:43 AM CDT Spoke to pt, pt stated that the swelling is off and on, she is worried about the redness, not warm to touch. Please advise. Pt did take the doxy and will continue lasix. * Telephone Encounter - Michelle Martínez MA - 08/23/2021 10:50 AM CDT Called pt, left message to call office * Telephone Encounter - Moise Tinoco MD - 08/20/2021 4:20 PM CDT Did she get the doxy I sent on the ? I am also extending the lasix. Not much else to do except send her to lymphedema clinic, perhaps * Telephone Encounter - [place] - 08/20/2021 8:19 AM CDT Pt called and states her right leg is super swollen. The medication given was working at first and now she is back at where she began. Please Advise. documented in this encounter Plan of Treatment Not on file documented as of this encounter Visit Diagnoses Not on filedocumented in this encounter Care Teams Adjustment Clerk Relationship Specialty Start Date End Date Moise Tinoco MD [address] [place] [address] PCP - General Family Medicine 08/11/21 Martinez Boyle MD [address] [place] [address] Referring Physician Obstetrics and Gynecology 08/11/21 documented as of this encounter
== END 2024-06-03 01:33 | disposition home or self-care (01) ==
LOC: CHSED 06-03 01:31
PROVIDERS: Emergency Provider Emergency Medicine
DX: J06.9 Acute upper respiratory infection, unspecified (principal); F17.210 Nicotine dependence, cigarettes, uncomplicated; Z20.822 Contact with and (suspected) exposure to COVID-19
CPT/HCPCS: 71045; 87637; 87651; 99283

== ENCOUNTER 2024-06-07 19:44 | Emergency (ER) | payer SELFPAY ==
--- NOTE | ~2024-06-07 | XR_ITS ---
CHEST RADIOGRAPH, PA AND LATERAL CLINICAL HISTORY: cough, SOB, pain with deep breathing . COMPARISON: 06/03/2024 TECHNIQUE: PA and lateral views of the chest. FINDINGS The cardiomediastinal silhouette is unremarkable. Platelike atelectasis within the left mid to lower lung field with pleural thickening and a small lef t-sided pleural effusion. This is an interval change from previous examination. The remainder of the lungs are clear. Visualized osseous structures and soft tissues are unremarkable. IMPRESSION: Platelike atelectasis within the left mid to lower lung field with trace pleural thickening and a sma ll left-sided pleural effusion. Reviewed, dictated and finalized at location A. ESTATE MARKETING COORDINATOR IMPRESSION: Platelike atelectasis within the left mid to lower lung field with trace pleura l thickening and a small left-sided pleural effusion.
[2024-06-07 19:47] VITALS: BP 151/110; PULSE 90; RESP 14; TEMP 36.6; O2SAT 100
[2024-06-07 20:38] LABS: Influenza A QL RT-PCR Negative (Negative); Influenza B QL RT-PCR Negative (Negative); RSV RNA, RT-PCR Negative (Negative); SARS-CoV-2 RNA PCR Negative (Negative)
[2024-06-08 04:47] VITALS: BP 154/86; PULSE 88; RESP 22; TEMP 36.6; O2SAT 99
[2024-06-08 04:48] VITALS: O2SAT 98
[2024-06-08] MEDS: ACETAMINOPHEN 500 MG TABLET 1000 MG PO (05:52)
[2024-06-08] MEDS: BENZONATATE 100 MG CAPSULE 200 MG PO (05:52)
--- NOTE | 2024-06-08 05:55 | ECG_ITS ---
Test Date: 2024-06-08 06:07:02 Measurements Intervals [place] Rate: 68 P: 52 VA: 125 QRS: 16 QRSD: 94 T: 0 QT: 398 QTc: 425 Interpretive Statements SINUS RHYTHM WITH OCCASIONAL VENTRICULAR PREMATURE COMPLEXES NONSPECIFIC ST & T-WAVE ABNORMALITY No previous ECG available for comparison Electronically Signed On 06-11-2024 17:56:47 RUG DRYING MACHINE OPERATOR by Juju Nieto M.D.
[2024-06-08 06:08] LABS: Strep Group A RT-PCR NOT DETECTED (Negative)
[2024-06-08 06:22] VITALS: TEMP 36.7
--- NOTE | 2024-06-08 07:12 | ED_ITS ---
HPI - URI/Sore Throat General Chief Complaint: Upper Respiratory Infection Stated Complaint: cough, congestion, pain with breathing Time Seen by Provider: 06/08/24 07:11 Source: patient History of Present Illness HPI Narrative: 33 years old white female, came to the ED by private car complaining of feeling sick, coughing, nasal congestion, postnasal discharge, ear aches body aches started June 03, , getting worse. Patient is tobacco dependent. She den ies any fever or chills or chest pain or shortness of breath Related Data Allergies Allergy/AdvReac Type Severity Reaction Status Date / Time Penicillins Allergy Mild DIARRHEA Verified 06/07/24 19:45 AMOXICILLIN TRIHYDRATE Allergy Unknown Diarrhea Uncoded 06/07/24 19:45 Review of Systems Review of Systems: All systems reviewed & are unremarkable except as noted in HPI and below PMFSH Past Medical History Medical History Anxiety Family planning Morbid obesity Surgical History Surgical History History of Social History Social History Smoking packs per day: 0.25 Smoking cigarettes per day: 5.0 Smoking status: Current every day smoker Alcohol intake: current Substance use: unknown Living arrangements: with family Gender identity (if verbalized by the patient): Female Exam Narrative: General appearance: Well-developed, well-nourished, intermittent coughing, hoarseness of voice Skin: Normal color Head: Normocephalic, nontraumatic Eyes: Clear conjunctiva ENT: Oropharynx normal, ears normal, nasal congestion Neck: Supple, nontender Chest and respiratory: Airway patent, no respiratory distress, no accessory muscle use Heart: Regular rate/rhythm Musculoskeletal: Normal range of motion, nontender back Neurologic: Alert and oriented ?3, ADVANCED PRACTICE NURSE is normal as tested, no gross motor deficit Course Vital Signs Vital signs: Vital Signs Temperature 36.6 C 06/07/24 19:47 Pulse Rate 90 06/07/24 19:47 Respiratory Rate 14 06/07/24 19:47 Blood Pressure 151/110 H 06/07/24 19:47 Pulse Oximetry 100 06/07/24 19:47 Oxygen Delivery Room Air 06/07/24 19:47 Temperature 36.7 C 06/08/24 06:22 Pulse Rate 88 06/08/24 04:47 Respiratory Rate 22 H 06/08/24 04:47 Blood Pressure 154/86 H 06/08/24 04:47 Pulse Oximetry 98 06/08/24 04:48 Oxygen Delivery Room Air 06/08/24 04:48 MDM - URI/Sore Throat MDM Narrative Medical decision making narrative: patient presents with upper respiratory viral infection symptoms Vital signs showing blood pressure 151/110 otherwise insignificant, improved to 130 2/78 without any medical intervention Blood workup today, showed no acute abnormalities, chest x-ray showed no acute abnormalities, patient discharged with diagnosis of upper respiratory viral infection, on test alone, Flonase and [id number] Afrin nasal spray Differential Diagnosis Differential diagnosis: Likely other ( viral infection) Medical Records Attestation: I reviewed the patient's medical records. Lab Data Attestation: I reviewed the patient's lab results. Labs: Lab Results 06/07/24 06/08/24 Range/Units 19:53 05:36 Influenza A (RT-PCR) Negative (Negative) Influenza B (RT-PCR) Negative (Negative) RSV (RT-PCR) Negative (Negative) SARS-CoV-2 RNA (RT-PCR) Negative (Negative) Group A Strep (PCR) Not detected (Negative) Critical Care Time Critical Care Time Critical Care Time: No Discharge Plan Discharge Clinical Impression: Upper respiratory infection, viral, Tobacco dependence Patient Disposition: Home, Self-Care Condition: Stable Instructions: Upper Respiratory Infection (ED) Additional Instructions: Return if symptoms are worsening , call your family physician for appointment, take Tylenol as as needed for aches and pain, continue home medications. Get [id number]-[id number] Afrin nasal spray, 3 times a day maximum 3 days Patient Language: American Prescriptions: New benzonatate 200 mg capsule 200 mg PO TID Qty: 30 0RF fluticasone propionate [Flonase Allergy Relief] 50 mcg/actuation spray,suspension 2 spray intranasal DAILY Qty: 36.4 0RF Rx Instructions: administer into each nostril No Action amoxicillin-pot clavulanate 875-125 mg tablet 1 tablet PO BID 7 Days Qty: 14 0RF clindamycin HCl 300 mg capsule 300 mg PO Q6H 5 Days Qty: 20 0RF Follow-up/Referrals: UNKNOWN,DOCTOR [Non-Staff] - Stand Alone Forms: Work/School Release IP
[2024-06-08 07:29] VITALS: BP 132/78; PULSE 66; RESP 22; TEMP 36.8; O2SAT 98
[2024-06-08 08:07] VITALS: BP 150/73; PULSE 65; RESP 19; TEMP 36.6; O2SAT 98
--- OUTSIDE RECORDS SUMMARY | 2024-06-15 07:18 | XMS_ITS | Clinical Summary ---
Author Organization 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
--- OUTSIDE RECORDS SUMMARY | 2024-06-15 07:18 | XMS_ITS | Referral Summary ---
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
--- OUTSIDE RECORDS SUMMARY | 2024-06-15 07:19 | XMS_ITS | Encounter Summary ---
Author Organization [facility] Address [address] [facility] [address] [place] [address] Care Team Providers Care Gambling Floor Supervisor Name Role Phone Moise Tinoco MD Primary Care Provider [phone] Martinez Boyle MD Unavailable [phone] Encounter Details Date Type Department Care Team (Late st Contact Info) Description 08/20/2021 Telephone [facility] Primary Care at [address] [address] Moise Tinoco MD [address] [place] [address] [address] [place] [address] Social History Tobacco Use Types [...] on file 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 * Telephone Encounter - Michelel Martínez MA - 08/23/2021 11:43 AM CDT [...] on filedocumented in this encounter Care Teams Gambling Floor Supervisor Relationship Specialty Start Date End Date Moise Tinoco MD [address] [place] [address] PCP - General Family Medicine 08/11/21 Martinez Boyle MD [address] [place] [address] Referring Physician Obstetrics and Gynecology 08/11/21 documented as of this encounter
--- OUTSIDE RECORDS SUMMARY | 2024-06-15 07:19 | XMS_ITS | Encounter Summary ---
Author Organization [facility] Address [address] [facility] [address] [place] [address] Care Team Providers Care Interpretive Program Coordinator Name Role Phone Moise Tinoco MD Primary Care Provider [phone] Martinez Boyle MD Unavailable [phone] Encounter Details Date Type Department Care Team (Late st Contact Info) Description 08/20/[address] 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
--- OUTSIDE RECORDS SUMMARY | 2024-06-15 07:20 | XMS_ITS | Encounter Summary ---
Author Organization [facility] Address [address] [address] Care Team Providers Care Casserole Preparer Name Role Phone Moise Tinoco MD Primary Care Provider [phone] Martinez Boyle MD Unavailable [phone] Encounter Details Date Type Department Care Team (Late st Contact Info) Description 08/11/2021 12:00 PM BOILER/CHILLER TECHNICIAN Lab [facility] Outpatient Lab at [address] [address] Class 3 severe obesity due to excess [...] on file Legal Sex Female 2:41 PM BOILER/CHILLER TECHNICIAN Gender Identity Not on file Sexual Orientation Not on file 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
--- OUTSIDE RECORDS SUMMARY | 2024-06-15 07:20 | XMS_ITS | Encounter Summary ---
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 Not on file Not on file documented as of this encounter Plan of Treatment Not on file documented as of this encounter Procedures Procedure Name Priority Date/Time Associated Diagnosis Comments EGFR Routine 08/11/2021 11:44 AM PLATE PRINTER Hypertension, essential DIFFERENTIAL AUTO Routine 08/11/2021 11: 44 AM PLATE PRINTER Hypertension, essential CBC WITH AUTO DIFFERENTIAL Routine 08/11/2021 11:44 AM PLATE PRINTER Hypertension, essential VITAMIN D 25 HYDROXY Routine 08/11/2021 11:44 AM PLATE PRINTER Class 3 severe obesity due to excess calories without serious comorbidity with body mass index (BMI) of 50.0 to 59.9 in adult (HCC) TSH Routine 08/11/2021 11:44 AM PLATE PRINTER Hypertension, essential LIPID PANEL Routine 08/11/2021 11:44 AM PLATE PRINTER Hypertension, essential COMPREHENSIVE METABOLIC PANEL Routine 08/11/2021 11:44 AM PLATE PRINTER Hypertension, essential documented in this encounter Results * eGFR (08/11/2021 11:44 AM PLATE PRINTER) [facility] eGFR 122 mL/min/1. 73 m2 KELLY SOUSA [...] reviewed 2021. Blood 08/11/2021 11:4 4 AM PLATE PRINTER 08/11/2021 7:23 PM PLATE PRINTER Moise Tinoco MD LAB BLOOD ORDERABLES Final Result [facility] [id number] [address] Department [place] [address] * Differential, auto (08/11/2021 11:44 AM PLATE PRINTER) Neutrophil abs 4.5 1.7 - 6.5 K/cumm [facility] Imm gran abs 0.0 0.0 - 0.1 K/cumm [facility] Lymphocyte abs 1.6 0.8 - 3.3 K/cumm [facility] Monocyte abs 0.4 0.2 - 0.8 K/cumm [facility] Eosinophil abs 0.1 0.0 - 0.5 K/cumm [facility] Basophil abs 0.0 0.0 - 0.1 K[facility]cumm [facility] Neutrophil pct 67.2 % [facility] Comment: Interpretive Data Percent cell count reference ranges are not reported, since discordance with absolute values may lead to misinterpretation of CBC data. Current Interpretive Data was last revised on 2017. Imm gran pct 0.3 % [facility] Comment: Interpretive Data Percent cell count reference ranges are not reported, since discordance with absolute values may lead to misinterpretation of CBC data. Current Interpretive Data was last revised on 2017. Lymphocyte pct 24.2 % [facility] Comment: Interpretive Data Percent cell count reference ranges are not reported, since discordance with absolute values may lead to misinterpretation of CBC data. Current Interpretive Data was last revised on 2017. Monocyte pct 6.3 % [facility] Comment: Interpretive Data Percent cell count reference [...] on 2017. Blood 08/11/2021 11:4 4 AM PLATE PRINTER 08/11/2021 7:21 PM PLATE PRINTER Moise Tinoco MD LAB BLOOD ORDERABLES Final Result Performing Organization Address [facility] Co de Phone Number KELLY [phone] [address] [facility] [place] [address] * (ABNORMAL) Vitamin D 25 hydroxy (08/11/2021 11:44 AM PLATE PRINTER) Vitamin D 25-OH 26(L) 30 - 80 ng/mL [facility] Blood 08/11/2021 11:4 4 AM PLATE PRINTER 08/11/2021 7:21 PM PLATE PRINTER Moise Tinoco MD LAB BLOOD ORDERABLES Final Result Performing Organization Address [facility] Co de Phone Number FAREEDBLANCO [phone] [address] [facility] [place] [address] * TSH (08/11/2021 11:44 AM PLATE PRINTER) Thyroid Stimulating Hormone 3.69 0.30 - 4.20 mcIUnit/mL [facility] Blood 08/11/2021 11:4 4 AM PLATE PRINTER 08/11/2021 7:21 PM PLATE PRINTER Moise Tinoco MD LAB BLOOD ORDERABLES Final Result Performing Organization Address [facility] Co de Phone Number FAREED[facility]ANCO [phone] [address] [facility] [place] [address] * Lipid panel (08/11/2021 11:44 AM PLATE PRINTER) [facility] Signature Cholesterol 154 30 - 199 [...] [facility] Blood 08/11/2021 11:4 4 AM PLATE PRINTER 08/11/2021 7:21 PM PLATE PRINTER us Moise Tinoco MD LAB [place]LO[place] [address] [address] Department [place] [address] * Comprehensive metabolic panel (08/11/2021 11:44 AM PLATE PRINTER) Sodium 139 135 - 145 mmol/L [facility] [...] [facility] Blood 08/11/2021 11:4 4 AM PLATE PRINTER 08/11/2021 7:21 PM PLATE PRINTER Moise Tinoco MD LAB BLOOD ORDERABLES Final Result Performing Organization Address [facility] Co de Phone Number KELLY SOUSA [phone] [address] [place] [address] * (ABNORMAL) CBC with auto differential (08/11/2021 11:44 AM PLATE PRINTER) WBC 6.6 3.8 - 9.9 K/cumm [facility] [...] NRBC abs 0.00 0.00 - 0.01 K/cumm [facility] Blood 08/11/2021 11:4 4 AM PLATE PRINTER 08/11/2021 7:21 PM PLATE PRINTER us Moise Tinoco MD LAB BLOOD ORDERABLES Final Result Performing Organization Address City/[facility]/ZIP Co de Phone Number KELLY SOUSA [phone] [address] [facility] [place] [address] documented in this encounter Visit Diagnoses Diagnosis Hypertension, essential Unspecified essential hypertension Class 3 severe obesity due to excess calories without serious comorbidity with body mass index (BMI) of 50.0 to 59.9 in adult (HCC) documented in this encounter Care Teams Children Librarian Relationship Specialty Start Date End Date Moise Tinoco MD [address] [place] [address] PCP - General Family Medicine 08/11/21 Martinez Boyle MD [address] [place] [address] Referring Physician Obstetrics and Gynecology 08/11/21 documented as of this encounter
--- OUTSIDE RECORDS SUMMARY | 2024-06-15 07:20 | XMS_ITS | Encounter Summary ---
Author Organization [facility] Address [address] [facility] [address] [place] [id number] Care Team Providers Care Kaiawhina Kura [place] Maori Name Role Phone Moise Tinoco MD Primary Care Provider [phone] Martinez Boyle MD Unavailable [phone] Reason for Visit * Reason Comments New Patient New patient Encounter Details Date Type Department Care Team (Late st Contact Info) Description 08/11/2021 11:00 AM EARTH SCIENCE TEACHER Office Visit [facility] Primary Care at [address] [address] Moise Tinoco MD [address] [place] [address] [address] [place] [address] Encounter for medical examination to [...] on file Legal Sex Female 2:41 PM EARTH SCIENCE TEACHER Gender Identity Not on file Sexual Orientation Not on file 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 Not on file Not on file documented as of this encounter Last Filed Vital Signs Vital Sign Reading Time Taken Comments Blood Pressure 138/84 08/11/2021 11:09 AM EARTH SCIENCE TEACHER Pulse 100 08/11/2021 11:09 AM EARTH SCIENCE TEACHER Temperature 37.1 ??C (98.8 ??F) 08/11/2021 11:[address] Respiratory Rate 18 08/11/2021 11:09 AM EARTH SCIENCE TEACHER Oxygen Saturation 98% 08/11/2021 11:09 AM EARTH SCIENCE TEACHER Inhaled Oxygen Concentration - - Weight 171 kg (377 lb) 08/11/2021 11:09 AM EARTH SCIENCE TEACHER Height 172.7 cm (5' 8 ) 08/11/2021 11:09 AM EARTH SCIENCE TEACHER Body Mass Index 57.32 08/11/2021 11:09 AM EARTH SCIENCE TEACHER documented in this encounter Patient Instructions * Patient Instructions* Moise Tinoco MD - 08/11/2021 11:00 AM EARTH SCIENCE TEACHER Images from the original note were not included. Doxy x 5 days Awaiting labs Patient Education Doxycycline (By mouth) Doxycycline (ctq-v-CAI-kleen) Treats and prevents infections. Also used to prevent malaria and treat rosacea or severe acne. Thismedicine is a tetracycline antibiotic. Brand Name(s): Acticlate, Adoxa, Adoxa Jac 1/150, Avidoxy, Avidoxy DK, BenzoDox 30 Kit, BenzoDox 60Kit, Doryx, Doryx MPC, Monodox, Morgidox [id number], Morgidox [id number] Kit, Morgidox 1x50MG, Morgidox 1x50MG Kit, Morgidox [id number] There may be other brand names for [...] pharmacist before using any other medicine, including pfvt-wxa-glevpnr medicines, vitamins, and herbal products. ?? Some [...] may report side effects to FDA at 6-962-KJD-6729 ?? 2017 [employer] Information is for End User's use only and may not be sold, redistributed or otherwise used for commercial purposes. The above information is an director educational radio only. It is not intended as medical [...] refuse treatment. The above information is an director educational radio only. It is not intended as medical advice for individual conditions or treatments. Talk to your doctor, nurse or pharmacist before following any medical regimen to see if it is safe and effective for you. ?? 2017 [employer] Information is for End User's use only and may not be sold, redistributed or otherwise used for commercial purposes. All illustrations and images included in CareNotes?? are the copyrighted property of [employer]. or [employer]. Patient Education DASH Eating Plan WHAT YOU [...] add flavor to foods. Try lemon or nenana juice or vinegar to give foods a [...] oil, and liquid and soft tub margarines. [place]-3 fatty acids are found in fatty fish, [...] information? ?? National Heart, Lung and [facility] [address] [address] [place] [address] Phone: Web Address: http://www.nhlbi.nih.gov/health/infoctr/index.htm CARE AGREEMENT: You have the right to help plan your care. Discuss treatment options with your caregivers to decidewhat care you want to receive. You always have the right to refuse treatment. The above informationis an director educational radio only. It is not intended as medical advice for individual conditions or treatments. Talk to your doctor, nurse or pharmacist before following any medical regimen to see if it is safe and effective for you. ?? 2017 [employer] Information is for End User's use only and may not be sold, redistributed or otherwise used for commercial purposes. All illustrations and images included in CareNotes?? are the copyrighted property of [employer] or [employer]. Thanks for coming in today! My medical assistants and I are thankful you have trusted us with your care, and hope that you received EXCELLENT care today! Please do not hesitate to call if you have any questions or concerns at [phone]. You may receive a phone call, text, MYCHART message, or e-mail asking about your care today. We would love to hear your feedback on how EXCELLENT your care wastoday! Wishing you better health, always. Dr. Tinoco H SCIENCE TEACHER documented in this encounter Ordered Prescriptions Prescription [...] (two) times a day for 7 days H SCIENCE TEACHER documented in this encounter Miscellaneous Notes * Assessment & Plan Note - Moise Tinoco MD - 08/13/2021 5:09 PM EARTH SCIENCE TEACHER Associated Problem(s): Encounter for medical examination to [...] well. Weight loss should help Awaiting labs H SCIENCE TEACHER documented in this encounter Plan of Treatment Not on file documented as of this encounter Results * (ABNORMAL) CBC with auto differential (08/11/2021 11:44 AM EARTH SCIENCE TEACHER) Pathologist [facility] WBC 6.6 3.8 - 9.9 K/cumm C[facility]ER [...] NRBC abs 0.00 0.00 - 0.01 K/cumm [facility] Blood 08/11/2021 11:4 4 AM EARTH SCIENCE TEACHER 08/11/2021 7:21 PM EARTH SCIENCE TEACHER us Moise Tinoco MD LAB BLOOD ORDERABLES Final Result [facility] [address] Department of Laboratories [place], [place] [id number] * Comprehensive metabolic panel (08/11/2021 11:44 AM EARTH SCIENCE TEACHER) Pathologist [facility] Sodium 139 135 - 145 mmol/L [facility] Potassium, pl 4.3 3.3 - 4.9 mmol/L [facility] Chloride 101 97 - 110 mmol/L [facility] CO2 26 22 - 32 mmol/L [facility] Anion gap 12 2 - 15 mmol/L [facility] BUN 11 8 - 25 mg/dL [facility] Creatinine 0.60 0.60 - 1.10 mg/dL [facility] Glucose 92 70 - 199 mg/dL [facility] Comment: Interpretive Data Fasting glucose >/= 126 [...] [facility] Blood 08/11/2021 11:4 4 AM EARTH SCIENCE TEACHER 08/11/2021 7:21 PM EARTH SCIENCE TEACHER Moise Tinoco MD LAB BLOOD ORDERABLES Final Result [facility] [address] Department [place] [address] * Lipid panel (08/11/2021 11:44 AM EARTH SCIENCE TEACHER) Cholesterol 154 30 - 199 mg/dL [facility] [...] [facility] Blood 08/11/2021 11:4 4 AM EARTH SCIENCE TEACHER 08/11/2021 7:21 PM EARTH SCIENCE TEACHER Moise Tinoco MD LAB BLOOD ORDERABLES Final Result [facility] [address] [place] [address] * TSH (08/11/2021 11:44 AM EARTH SCIENCE TEACHER) Thyroid Stimulating Hormone 3.69 0.30 - 4.20 mcIUnit/mL [facility] Blood 08/11/2021 11:4 4 AM EARTH SCIENCE TEACHER 08/11/2021 7:21 PM EARTH SCIENCE TEACHER Moise Tinoco MD LAB BLOOD ORDERABLES Final Result [facility] [address] [place] [address] * (ABNORMAL) Vitamin D 25 hydroxy (08/11/2021 11:44 AM EARTH SCIENCE TEACHER) Vitamin D 25-OH 26(L) 30 - 80 ng/mL [facility] Blood 08/11/2021 11:4 4 AM EARTH SCIENCE TEACHER 08/11/2021 7:21 PM EARTH SCIENCE TEACHER Moise Tinoco MD LAB BLOOD ORDERABLES Final Result Performing Organization Address City/[facility] Co de Phone Number [facility] [address] [place] [address] documented in this encounter Visit Diagnoses Diagnosis [...] documented as of this encounter Care Teams Kaiawhina Kura [place] Maori Relationship Specialty Start Date End Date Moise Tinoco MD [address] [place] [address] PCP - General Family Medicine 08/11/21 Martinez Boyle MD [address] [place] [address] Referring Physician Obstetrics and Gynecology 08/11/21 documented as of this encounter
--- OUTSIDE RECORDS SUMMARY | 2024-06-15 07:20 | XMS_ITS | Encounter Summary ---
Author Organization [facility] Address [address] [facility] [address] [place] [id number] Care Team Providers Care Bath Steward/Stewardess Name Role Phone Unknown, Notinfile Primary Care Provider Unavail able Reason for Visit * Reason Comments Allergic Reaction Encounter Details Date Type Department Care Team (Late st Contact Info) Description 08/10/2021 4:45 PM 4TH GRADE TEACHER Office Visit [facility] Outpatient [facility] [address] [address] Hien Hill NP [address] [place] [address] [address] [place], [place] [id number] Elevated blood-pressure reading without diagnosis of hypertension [...] on file Legal Sex Female 2:41 PM 4TH GRADE TEACHER Gender Identity Not on file Sexual Orientation Not on file documented as of this encounter Last Filed Vital Signs Vital Sign Reading Time Taken Comments Blood Pressure 159/100 08/10/2021 5:14 PM 4TH GRADE TEACHER Pulse 118 08/10/2021 5:01 PM 4TH GRADE TEACHER Temperature 36.7 ??C (98 ??F) 08/10/2021 5:01 PM 4TH GRADE TEACHER Respiratory Rate 20 08/10/2021 5:01 PM 4TH GRADE TEACHER Oxygen Saturation 98% 08/10/2021 5:01 PM 4TH GRADE TEACHER Inhaled Oxygen Concentration - - Weight 169.6 kg (374 lb) 08/10/2021 5:01 PM 4TH GRADE TEACHER Height 172.7 cm (5' 8 ) 08/10/2021 5:01 PM 4TH GRADE TEACHER Body Mass Index 56.87 08/10/2021 5:01 PM 4TH GRADE TEACHER documented in this encounter Patient Instructions * Patient Instructions* Hien Hill NP - 08/10/2021 4:45 PM 4TH GRADE TEACHER Images from the original note were [...] balance. Check labels to find low-sodium or fp-aqhp-ndfxh foods. Some low-sodium foods use potassium salts [...] all your medicines as directed. ?? 2017 [employer] Information is for End User's use only and may not be sold, redistributed or otherwise used for commercial purposes. All illustrations and images included in CareNotes?? are the copyrighted property of [employer]. or [employer]. The above information is an home health aid only. It is not intended as medical advice for individual conditions or treatments. Talk to your doctor, nurse or pharmacist before following any medical regimen to see if it is safe and effective for you. 4TH GRADE TEACHER documented in this encounter Progress Notes * [...] 1/2 pack per day. Pt works at [employer] and stands on her feet all day. [...] around, and try not to sit or patient financial specialist one place for a long time ?Raise [...] Patrick Jameson MD at 08/10/2021 11:25 PM 4TH GRADE TEACHER 4TH GRADE TEACHER 4TH GRADE TEACHER documented in this encounter Plan of [...] 08/11/2021 added in this encounter Care Teams Bath Steward/Stewardess Relationship Specialty Start Date End Date Unknown, Notinfile PCP - General 08/10/21 08/10/21 documented as of this encounter
== END 2024-06-08 08:08 | disposition home or self-care (01) ==
PROVIDERS: Emergency Medicine; Emergency Provider Emergency Medicine
DX: J06.9 Acute upper respiratory infection, unspecified (principal); B34.9 Viral infection, unspecified; F17.210 Nicotine dependence, cigarettes, uncomplicated; Z20.822 Contact with and (suspected) exposure to COVID-19; F41.9 Anxiety disorder, unspecified
CPT/HCPCS: 71046; 87637; 87651; 93005; 99283; A9270

== ENCOUNTER 2025-01-22 22:38 | Emergency (ER) | payer OTHER, SELFPAY ==
--- NOTE | ~2025-01-22 | XR_ITS ---
CHEST RADIOGRAPH CLINICAL HISTORY: shortness of breath . COMPARISON: 06/07/2024 TECHNIQUE: Single portable view of the chest. FINDINGS The cardiomediastinal silhouette is unremarkable. The lungs are clear. IMPRESSION: No focal infiltrate or effusion. Reviewed, dictated and finalized at location A.
[2025-01-22 22:38] VITALS: BP 156/85; PULSE 76; RESP 20; TEMP 35.8; O2SAT 100
--- NOTE | 2025-01-22 22:56 | ED_ITS ---
HPI - SOB/Dyspnea General Chief Complaint: Shortness of Breath/Dyspnea Stated Complaint: SOB Time Seen by Provider: 01/22/25 22:45 Source: patient Mode of arrival: ambulatory Limitations: no limitations History of Present Illness HPI Narrative: 34-year-old female smoker presents to the ED with a 7 day history of -- shortness of breath. This gets worse with exertion. -- Nonproductive cough no chest pain. No fever. no sore throat, nasal congestion, ear pain Prior history of acute bronchitis. MD elicited complaint: shortness of breath and cough Onset (ago): day(s) ( Seven days) Severity: moderate Exacerbating factors: movement Relieving factors: rest Associated symptoms: denies other symptoms Treatment prior to arrival: none Related Data Home oxygen amount: none Allergies Allergy/AdvReac Type Severity Reaction Status Date / Time Penicillins Allergy Mild DIARRHEA Verified 01/22/25 22:56 AMOXICILLIN TRIHYDRATE Allergy Unknown Diarrhea Uncoded 01/22/25 22:56 Review of Systems 2 Review of Systems: All systems reviewed & are unremarkable except as noted in HPI and below Constitutional: Constitutional: Reports as per HPI and Reports no additional constitutional complaints Eyes: Eyes: Reports as per HPI and Reports no additional eye complaints ENT: Reports system reviewed and no additional complaints, except as documented and Reports as per HPI Cardiovascular: Cardiovascular: Reports as per HPI and Reports no additional cardiovascular complaints Respiratory: Respiratory: Reports as per HPI, Reports no additional respiratory complaints, Reports cough and Reports dyspnea Gastrointestinal: Gastrointestinal: Reports as per HPI and Reports no additional gastrointestinal complaints Genitourinary: Genitourinary: Reports no additional female genitourinary complaints and Reports as per HPI Musculoskeletal: Musculoskeletal: Reports no additional musculoskeletal complaints and Reports as per HPI Integumentary/Breasts: Skin/Breast: Reports system reviewed and no additional complaints, except as docu and Reports as per HPI Neurologic: Reports system reviewed and no additional complaints, except as documented and Reports as per HPI Psychiatric: Psychiatric: Reports no additional psychiatric complaints and Reports as per HPI Endocrine: Endocrine: Reports no additional endocrine complaints and Reports as per HPI Hematologic/Lymphatic: Hematologic/Lymphatic: Reports no additional hematologic/lymphatic complaints and Reports as per HPI Allergic/Immunologic: Allergic/Immunologic: Reports no additional allergic/immunologic complaints and Reports as per HPI [facility] Past Medical History Medical History Anxiety Family planning Morbid obesity Surgical History Surgical History History of Social History Social History Smoking packs per day: 0.25 Smoking cigarettes per day: 5.0 Smoking status: Current every day smoker Alcohol intake: current Substance use: unknown Living arrangements: with family Gender identity (if verbalized by the patient): Female Exam 2 Narrative: oxygen saturation of 98-100% on room air with a respiratory rate of 20 Const: General: no acute distress Orientation/consciousness: patient oriented x3 Limitations: no limitations HENMT: Head: normal to inspection Ears: external ears normal F katharine/Nose/Sinus: Normal external nose present Face and sinus: normal facial exam Mouth: Yes Normal oral and palatal mucosa present Throat: posterior oropharynx normal Eyes: Conjunctivae: conjunctivae normal Pupils: Equal, round and reactive pupils present EOM: EOMs intact bilaterally Neck: Neck: normal visual inspection and no lymphadenopathy Chest: Chest palpation & inspection: normal inspection of the chest Resp: Effort & Inspection: normal respiratory effort Auscultation: d iminished lung sounds Cardio: Rate: regular rate Rhythm: regular rhythm GI: GI Palp: Yes Soft to palpation Auscultation: normal bowel sounds O ther: 2 no tenderness/rigidity /rebound : General: Yes no CVA tenderness Back/Spine/Pelvis: Back: no CVA tenderness Skin: General skin exam: normal color Rashes: no rashes Wounds: no wounds Neuro: General: patient oriented x3, no meningeal signs, no focal motor deficits and CN's II-XI intact bilaterally Speech: normal speech Extrem: General: normal to inspection and edema Psych: Mental Status: mental status grossly normal Affect: normal affect Course Course Emergency Course: bronchitis with bronchospasm-- patient is noted to have bilaterally decreased breath sounds with which improved after the DuoNeb treatment. Patient had a normal white cell count. Chest x-ray did not show any infiltrates evidence of CHF. Patient has a normal D-dimer and a normal proBNP. EKG did not show any acute findings. The patient does not have evidence of chronic bronchitis. In view of her bronchospasm will treat her with Augmentin, DuoNeb and steroids. anemia with an H&H of 9.8/33.4 Vital Signs Vital signs: Vital Signs Temperature 35.8 C L 01/22/25 22:38 Pulse Rate 76 01/22/25 22:38 Respiratory Rate 20 01/22/25 22:38 Blood Pressure 156/85 H 01/22/25 22:38 Pulse Oximetry 100 01/22/25 22:38 Oxygen Delivery Room Air 01/22/25 22:38 Temperature 35.8 C L 01/22/25 22:38 Pulse Rate 60 01/23/25 00:28 Respiratory Rate 18 01/23/25 00:28 Blood Pressure 126/59 L 01/23/25 00:07 Pulse Oximetry 98 01/23/25 00:28 Oxygen Delivery Room Air 01/23/25 00:28 MDM - SOB/Dyspnea MDM Narrative Medical decision making narrative: Bronchitis with bronchospasm anemia Differential Diagnosis Differential diagnosis: Likely acute exacerbation of chronic obstructive airways disease and congestive heart failure Medical Records Attestation: I reviewed the patient's medical records. Lab Data Attestation: I reviewed the patient's lab results. 01/22/25 23:26 01/22/25 23:26 Labs: Lab Results 01/22/25 01/22/25 Range/Units 23:26 23:59 WBC 6.5 (4.8-10.8) K/mm3 RBC 4.21 (4.20-5.40) M/mm3 Hgb 9.8 L (12.0-15.0) g/dL Hct 33.4 L (35.0-49.0) % MCV 79.3 (78.0-102.0) fL MCH 23.3 L (27.0-31.0) pg MCHC 29.3 L (32-36) g/dL RDW 17.0 H (11.6-14.4) % Plt Count 234 (150-420) K/mm3 MPV 11.4 (9.2-11.8) fl Immature Gran % (Auto) 0.5 H (0.0-0.0) % Neut % (Auto) 61.7 (50.0-70.0) % Lymph % (Auto) 27.8 (18.0-42.0) % Cook % (Auto) 7.2 (2.0-11.0) % Eos % (Auto) 2.5 (1.0-6.0) % Baso % (Auto) 0.3 (0.0-1.0) % Lymph # (Auto) 1.81 (1.10-4.50) K/mm3 Cook # (Auto) 0.47 (0.10-0.90) K/mm3 Eos # (Auto) 0.16 (0.02-0.50) K/mm3 Baso # (Auto) 0.02 (0.00-0.10) K/mm3 Abs Immat Gran (auto) 0.03 H (0.00-0.00) K/mm3 Absolute Neuts (auto) 4.01 (1.70-7.20) K/mm3 Absolute Nucleated RBC 0.00 (0.00-0.00) K/mm3 Nucleated RBC % 0.0 (0-0.0) % PT 10.4 (9.50-12.1) Seconds INR 0.9 D-Dimer 0.35 (0.19-0.50) mg/L Sodium 142 (137-145) mmol/L Potassium 3.8 (3.4-5.0) mmol/L Chloride 103 (98-107) mmol/L Carbon Dioxide 32 H (22-30) mmol/L Anion Gap 7 (4-12) mmol/L BUN 14 (7-17) mg/dL Creatinine 0.80 (0.7-1.0) mg/dL Estim Creat Clear Calc 127 ml/min Estimated GFR > 60 (59 - ) Glucose 71 (65-110) mg/dL Calculated Osmolality 292 (285-295) mOsm/kg Lactic Acid 1.1 (0.4-2.0) mmol/L Calcium 8.9 (8.4-10.2) mg/dL Total Bilirubin 0.3 (0.2-1.3) mg/dL AST 31 (14-36) U/L ALT 21 (6-35) U/L Alkaline Phosphatase 68 (38-126) U/L Troponin I < 0.012 (0.000-0.034) ng/mL NT-Pro-B Natriuret Pep 61 (19.9-100) pg/mL Total Protein 7.6 (6.3-8.2) g/dL Albumin 4.2 (3.5-5.1) g/dL TSH 3.240 (0.465-4.680) uIU/mL Influenza A (RT-PCR) Negative (Negative) Influenza B (RT-PCR) Negative (Negative) RSV (RT-PCR) Negative (Negative) SARS-CoV-2 RNA (RT-PCR) Negative (Negative) ECG Data EKG #1: ECG completion date: 01/23/25 ECG completion time: 23:30 Interpretation: normal sinus rhythm. Normal axis. No ST elevation. Nonspecific T-wave changes. Discharge Plan Discharge Clinical Impression: Acute bronchitis with bronchospasm Patient Disposition: Home Condition: Stable Instructions: Antibiotic Form, Acute Bronchitis (ED), Bronchospasm (ED) Patient Language: Lithuanian Prescriptions: New albuterol sulfate [Ventolin HFA] 90 mcg/actuation HFA aerosol inhaler 1 inh inhalation QID PRN (Reason: shortness of breath or wheezing) Qty: 6.7 0RF azithromycin [Zithromax] 250 mg tablet See Rx Instructions .ROUTE .COMPLEX Qty: 6 0RF Rx Instructions: For 250 mg dose pack: take 500 mg today (day 1), then 250 mg for 4 days (days 2-5) prednisone 20 mg tablet 20 mg PO BID Qty: 5 0RF No Action amoxicillin-pot clavulanate 875-125 mg tablet 1 tablet PO BID 7 Days Qty: 14 0RF clindamycin HCl 300 mg capsule 300 mg PO Q6H 5 Days Qty: 20 0RF benzonatate 200 mg capsule 200 mg PO TID Qty: 30 0RF fluticasone propionate [Flonase Allergy Relief] 50 mcg/actuation spray,suspension 2 spray intranasal DAILY Qty: 36.4 0RF Rx Instructions: administer into each nostril Follow-up/Referrals: Oliver,Heather Dawson MD [Primary Care Provider, Unknown] Time of Disposition: 00:49
[2025-01-22 22:57] VITALS: O2SAT 98
[2025-01-22 23:00] VITALS: O2SAT 94
[2025-01-22 23:01] VITALS: BP 144/92; O2SAT 100
--- NOTE | 2025-01-22 23:02 | ECG_ITS ---
Test Date: 2025-01-22 23:30:33 Measurements Intervals [place] Rate: 62 P: 38 FL: 138 QRS: 3 QRSD: 102 T: 42 QT: 427 QTc: 435 Interpretive Statements SINUS RHYTHM LOW QRS VOLTAGE IN PRECORDIAL LEADS BORDERLINE ST-T WAVE ABNORMALITY- DIFFUSE LEADS BASELINE ARTIFACT- I, III, AVR, AVL, AVF BORDERLINE ECG Compared to ECG 06/08/2024 06:07:02 NO SIGNIFICANT CHANGE Electronically Signed On 01-23-2025 05:41:42 CDT by Star Turner D.O.
[2025-01-22] MEDS: IPRATROPIUM 0.5 MG/ALBUTEROL SULFATE 2.5 MG AMPUL.NEB 3 ML INHALATION (23:14)
[2025-01-22 23:31] LABS: Hematocrit 33.4 % (35.0-49.0); Hemoglobin 9.8 g/dL (12.0-15.0); Immature Granulocyte Percent A 0.5 % (0.0-0.0); Lymphocytes Absolute Auto 1.81 K/mm3 (1.10-4.50); Mean Corpuscular HGB Conc 29.3 g/dL (32-36); Mean Corpuscular Hemoglobin 23.3 pg (27.0-31.0); Mean Corpuscular Volume 79.3 fL (78.0-102.0); Nucleated Red Blood Cells Absolute Auto 0.00 K/mm3 (0.00-0.00); Nucleated Red Blood Cells Perc 0.0 % (0-0.0); Platelet Count Result 234 K/mm3 (150-420); Red Blood Count 4.21 M/mm3 (4.20-5.40); White Blood Count 6.5 K/mm3 (4.8-10.8)
[2025-01-22 23:36] VITALS: PULSE 76
[2025-01-22 23:37] VITALS: PULSE 78; RESP 18; O2SAT 100
[2025-01-22 23:43] LABS: Alanine Aminotransferase 21 U/L (6-35); Albumin Level 4.2 g/dL (3.5-5.1); Alkaline Phosphatase 68 U/L (38-126); Anion Gap 7 mmol/L (4-12); Aspartate Amino Transferase 31 U/L (14-36); Bilirubin,Total 0.3 mg/dL (0.2-1.3); Blood Urea Nitrogen 14 mg/dL (7-17); Calcium 8.9 mg/dL (8.4-10.2); Carbon Dioxide 32 mmol/L (22-30); Chloride 103 mmol/L (98-107); Estimated CRCL calculation 127 ml/min; Estimated Glomerular Filt Rate > 60; Glucose 71 mg/dL (65-110); Osmolality Calculated 292 mOsm/kg (285-295); Potassium 3.8 mmol/L (3.4-5.0); Sodium 142 mmol/L (137-145); Total Protein 7.6 g/dL (6.3-8.2)
[2025-01-22 23:44] LABS: INR 0.9; Prothrombin Time 10.4 Seconds (9.50-12.1)
[2025-01-22 23:52] LABS: NT Pro B Type Natriuretic Pept 61 pg/mL (19.9-100)
[2025-01-22 23:55] LABS: Troponin I < 0.012 ng/mL (0.000-0.034)
[2025-01-23 00:07] VITALS: BP 126/59
[2025-01-23 00:14] LABS: Thyroid Stimulating Hormone 3.240 uIU/mL (0.465-4.680)
[2025-01-23 00:28] VITALS: PULSE 60; RESP 18; O2SAT 98
[2025-01-23 00:44] LABS: Influenza A QL RT-PCR Negative (Negative); Influenza B QL RT-PCR Negative (Negative); RSV RNA, RT-PCR Negative (Negative); SARS-CoV-2 RNA PCR Negative (Negative)
== END 2025-01-23 00:54 | disposition home or self-care (01) ==
PROVIDERS: Emergency Provider Internal Medicine Critical Care Medicine; PCP Student in an Organized Health Care Education/Training Program
DX: J20.9 Acute bronchitis, unspecified (principal); F17.210 Nicotine dependence, cigarettes, uncomplicated; Z20.822 Contact with and (suspected) exposure to COVID-19
CPT/HCPCS: 36415; 71045; 80053; 83605; 83880; 84443; 84484; 85025; 85380; 85610; 87637; 93005; 94640; 96374; 99284; J2919

== ENCOUNTER 2025-03-01 23:10 | Emergency (ER) | payer OTHER, SELFPAY ==
[2025-03-01 23:10] VITALS: BP 161/63; PULSE 62; RESP 18; TEMP 35.8; O2SAT 100
--- NOTE | 2025-03-01 23:20 | ED_ITS ---
HPI - Eye Problem General Chief complaint: Eye Problems Stated complaint: stung around the eye Time Seen by Provider: 03/01/25 23:19 Source: patient Mode of arrival: ambulatory Limitations: no limitations History of Present Illness HPI Narrative: 34-year-old female who presents with a cyst insect bite to the lateral aspect of her left eye with swelling with no conjunctival injection no eye irritation, with no blurry vision no shortness of breath no audible wheezing no fever chills no abdominal pain no nausea vomiting. Onset (ago): day(s) Onset description: gradual Related Data Allergies Allergy/AdvReac Type Severity Reaction Status Date / Time Penicillins Allergy Mild DIARRHEA Verified 01/22/25 22:56 AMOXICILLIN TRIHYDRATE Allergy Unknown Diarrhea Uncoded 01/22/25 22:56 Review of Systems Review of Systems: All systems reviewed & are unremarkable except as noted in HPI and below PMFSH Past Medical History Medical History Anxiety Family planning Morbid obesity Surgical History Surgical History History of Social History Social History Smoking packs per day: 0.25 Smoking cigarettes per day: 5.0 Smoking status: Current every day smoker Alcohol intake: current Substance use: unknown Living arrangements: with family Gender identity (if verbalized by the patient): Female Exam Const: General: healthy appearing and no acute distress Nutritional Appearance: well nourished and obese Orientation/consciousness: patient orien ketan x3 Limitations: no limitations HENMT: Head: normal to inspection Other: Swollen around the left eye with no conjunctival injection no visual changes no blurry vision with a small punctate lesion lateral aspect of her left Face. Eyes: Conjunctivae: conjunctivae normal Pupils: Equal, round and reactive pupils present EOM: EOMs intact bilaterally Direct Ophthalmoscopy: no photophobia Neck: Neck: normal visual inspection and no lymphadenopathy Chest: Chest palpation & inspection: normal inspection of the chest Resp: Effort & Inspection: normal respiratory effort Auscultation: clear to auscultation bilaterally Cardio: Rate: regular rate Rhythm: regular rhythm GI: GI Palp: Yes Soft to palpation Auscultation: normal bowel sounds Skin: Wounds: wounds noted Course Course Emergency Course: Patient received 80mg IM Depo-Medrol and advised to take medication that was prescribed. And also can take Zyrtec daily x1 week. Vital Signs Vital signs: Vital Signs Temperature 35.8 C L 03/01/25 23:10 Pulse Rate 62 03/01/25 23:10 Respiratory Rate 18 03/01/25 23:10 Blood Pressure 161/63 H 03/01/25 23:10 Pulse Oximetry 100 03/01/25 23:10 Oxygen Delivery Room Air 03/01/25 23:10 Temperature 35.8 C L 03/01/25 23:10 Pulse Rate 62 03/01/25 23:10 Respiratory Rate 18 03/01/25 23:10 Blood Pressure 161/63 H 03/01/25 23:10 Pulse Oximetry 100 03/01/25 23:10 Oxygen Delivery Room Air 03/01/25 23:10 Critical Care Time Critical Care Time Critical Care Time: No Discharge Plan Discharge Clinical Impression: Insect bite Patient Disposition: Home Condition: Stable Instructions: Antibiotic Form, Insect Bite or Sting (ED) Additional Instructions: advised patient to take medication as prescribed, can take Zyrtec aptd-ups-psptwul daily x1 week and follow with primary if symptoms persist or worsen. Patient Language: Jamaican Prescriptions: New prednisone 10 mg tablet 10 mg PO DAILY Qty: 7 0RF No Action amoxicillin-pot clavulanate 875-125 mg tablet 1 tablet PO BID 7 Days Qty: 14 0RF clindamycin HCl 300 mg capsule 300 mg PO Q6H 5 Days Qty: 20 0RF albuterol sulfate [Ventolin HFA] 90 mcg/actuation HFA aerosol inhaler 1 inh inhalation QID PRN (Reason: shortness of breath or wheezing) Qty: 6.7 0RF azithromycin [Zithromax] 250 mg tablet See Rx Instructions .ROUTE .COMPLEX Qty: 6 0RF Rx Instructions: For 250 mg dose pack: take 500 mg today (day 1), then 250 mg for 4 days (days 2-5) prednisone 20 mg tablet 20 mg PO BID Qty: 5 0RF benzonatate 200 mg capsule 200 mg PO TID Qty: 30 0RF fluticasone propionate [Flonase Allergy Relief] 50 mcg/actuation spray,suspension 2 spray intranasal DAILY Qty: 36.4 0RF Rx Instructions: administer into each nostril Follow-up/Referrals: Oliver,Heather Dawson MD [Primary Care Provider, Unknown] Time of Disposition: 23:24
--- OUTSIDE RECORDS SUMMARY | 2025-03-01 23:32 | XMS_ITS | Clinical Summary ---
Author Organization [facility] [place] [place] [address] Address [address] [place] [phone] Care Team Providers Care Pillowcase Folder Name Role Phone Moise Tinoco MD Primary Care Provider [phone] Martinez Boyle MD Unavailable [phone] Allergies Active Allergy Reactions Criticality Noted Date [...] 08/11/2021 Assessment & Plan (08/13/2021 5:10 PM SENIOR SALESFORCE DEVELOPER): A initial well visit to establish care [...] counseling, exercise counseling and education provided. 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 on file Not on file Not on file Obstetrics History Last Filed Vital Signs Vital Sign Reading Time Taken Comments Blood Pressure 126/84 09/06/2021 3:59 PM CDT Pulse 107 09/06/2021 3:59 PM CDT Temperature 36.7 C (98 F) 09/06/2021 3:59 PM CDT Respiratory Rate 22 09/06/2021 3:59 PM CDT Oxygen Saturation 97% 09/06/2021 3:59 PM CDT Inhaled Oxygen Concentration - - Weight 169.8 kg (374 lb 4.8 oz) 09/06/2021 3:59 PM CDT Height 172.7 cm (5' 7.99) 09/06/2021 3:59 PM CD T Body Mass Index 56.93 09/06/2021 3:59 PM CDT Plan of Treatment Not on file Insurance [facility] Care Teams Pillowcase Folder Relationship Specialty Start Date End Date Moise Tinoco MD [address] [place] [address] PCP - General Family Medicine 08/11/21 Martinez Boyle MD [address] [place] [address] Referring Physician Obstetrics and Gynecology 08/11/21
--- OUTSIDE RECORDS SUMMARY | 2025-03-01 23:32 | XMS_ITS | Encounter Summary ---
Author Organization [facility] Address [address] [place] [address] Care Team Providers Care Commercial Fishing Vessel Operator Name Role Phone Heather Boyd MD Primary Care Provider + Encounter Details Date Type Department Care Team (Late st Contact Info) Description 01/30/2025 Results Follow-Up [facility] Family Medicine [facility] [address] [facility] [address] [place] [phone] Heather Boyd MD [address] [place] [phone] RPR(MONITOR) RFLX TO TITER (QST), HIV AB, 4TH GEN (QST), HEPATITIS C ANTIBODY W/RFX TO HCV RNA, Additional followed-up results: 3 Social History Tobacco Use Types Packs/Day Years Used Date Smoking Tobacco: Every Day Cigarettes 1 19.7 Started: 2004; Last attempted to quit: 2008 Smokeless Tobacco: Never Alcohol Use Standard Drinks/Week Comments Not Currently 0 (1 standard drink = 0.6 oz pur e alcohol) PHQ-2 Answer Date Recorded Patient Health Questionnaire-2 Score 0 01/21/2025 Comments Unknown Sex and Gender Information Value Date Recorded Sex Assigned at Not on file Legal Sex Female 10:45 AM CDT Gender Identity Not on file Sexual Orientation Not on file documented as of this encounter Plan of Treatment Not on file documented as of this encounter Visit Diagnoses Not on filedocumented in this encounter Care Teams Commercial Fishing Vessel Operator Relationship Specialty Start Date End Date Heather Boyd MD [address] [place] [address] PCP - General FAMILY PRACTICE 01/21/25 documented as of this encounter
--- OUTSIDE RECORDS SUMMARY | 2025-03-01 23:32 | XMS_ITS | Clinical Summary ---
Author Organization [facility] Address Formerly [facility] [place] [address] Care Team Providers Care Side Laster Name Role Phone Heather Boyd MD Primary Care Provider + Allergies Active Allergy Reactions Criticality Noted Date Comments Amoxicillin Diarrhea,Hives 01/21/2025 Medications METHADONE HCL OR Take 260 mg by mouth daily. Active amLODIPine (NORVASC) 5 MG tabletIndications :Essential hypertension Take 1 tablet (5 mg total) by mouth daily. 90 tablet 3 01/21/2025 01/22/20 26 Active Active Problems Problem Noted Date Diagnosed Date Morbid obesity 01/21/2025 Assessment & Plan (01/21/2025 2:33 PM CDT): Encouraged lifestyle changes. Tobacco use 01/21/2025 Essential hypertension 01/21/2025 Overview (01/21/2025): Previously took losartan. Tolerated well. She is open to however. Home blood pressure readings run 140s-150s systolic Assessment & Plan (01/21/2025 2:34 PM CDT): She will confirm home readings are running elevated and fill out blood pressure flowsheet. Ordered amlodipine 5 mg daily which would still require adjustment if she found out she was . She will track home readings and update me. BMP ordered. Encounters Date Type Department Care Team Description 02/02/2025 Urlistt Message Enc [facility] Family Medicine - [place] [address] [place] [address] Mychart, [facility] Provider Appt with Dr. Boyd on 02/04/25 01/30/2025 Results Follow-Up [address] [address] Heather Boyd MD RPR(MONITOR) RFLX TO TITER (QST), HIV AB, 4TH GEN (QST), HEPATITIS C ANTIBODY W/RFX TO HCV RNA, Additional followed-up results: 3 01/22/2025 Scan [facility] Scanned, [facility] Lab (SCAN); Image (SCAN) 01/21/2025 1:40 PM CDT Office Visit [address] [address] Heather Boyd MD New Patient (Here to get established. Here to discuss Hep C issues and constipation. ) 01/21/2025 Travel from Last 3 Months Family History Medical History Relation Comments Hypertension Mother None Mother Relation Status Comments Mother Alive Social History Tobacco Use Types Packs/Day Years Used Date Smoking Tobacco: Every Day Cigarettes 1 19.7 Started: 2004; Last attempted to quit: 2008 Smokeless Tobacco: Never Tobacco Cessation:Ready to Q uit: No; Counseling Given: Yes Alcohol Use Standard Drinks/Week Comments Not Currently 0 (1 standard drink = 0.6 oz pur e alcohol) PHQ-2 Answer Date Recorded Patient Health Questionnaire-2 Score 0 01/21/2025 Comments Unknown Sex and Gender Information Value Date Recorded Sex Assigned at Not on file Legal Sex Female 10:45 AM CDT Gender Identity Not on file Sexual Orientation Not on file Last Filed Vital Signs Vital Sign Reading Time Taken Comments Blood Pressure 140/83 01/21/2025 1:57 PM CDT swapna e reading Pulse 61 01/21/2025 1:32 PM CDT Temperature 36.1 C (96.9 F) 01/21/2025 1:32 PM CDT Respiratory Rate - - Oxygen Saturation 96% 01/21/2025 1:32 PM CDT Inhaled Oxygen Concentration - - Weight 146.1 kg (322 lb) 01/21/2025 1:32 PM CDT Height 167.6 cm (5' 6) 01/21/2025 1:32 PM CDT Body Mass Index 51.97 01/21/2025 1:32 PM CDT Plan of Treatment Health Maintenance Due Date Last Done Comments Cervical Cancer Screening Pa p Smear (Age 30 to 64) Every 3 Years 1988 DTaP, Tdap and Td Vaccines ( 1 - Tdap) 12/19/2007 Hepatitis B Vaccines (1 of 3 - 19+ 3-dose series) 12/19/2007 Pneumococcal Vaccine: Pediat rics (0 to 5 Years) and At-Risk Patients (6 to 49 Years) (1 of 2 - PCV) 12/19/2007 HPV Vaccines (1 - 3-dose SCD M series) 12/19/2015 Cervical Cancer Screening Pa p with HPV Testing (Age 30 to 64) Every 5 Years 2018 Cervical Cancer Screening with HPV 2018 COVID-19 Vaccine ( - 2023-2 5 season) 2025 Annual Physical 01/21/2026 01/21/2025 PHQ-2 (Physician [place]) Completed 01/21/2025 Hepatitis C Completed 01/27/2025 Meningococcal B Vaccine Aged Out No l onger eligible based on patient's age to complete this topic Meningococcal Vaccine Aged Out No radha aravind eligible based on patient's age to complete this topic RSV Immunizations Under 20 Months Aged Out No longer eligible based on patient's age to complete this topic Procedures Procedure Name Priority Date/Time Associated Diagnosis Comments COMPREHENSIVE METABOLIC PANEL Today 01/27/2025 2:21 PM CDT Essential hypertension LIPID PANEL Today 01/27/2025 2:21 PM CDT Routine general medical examination at a health care facility HEMOGLOBIN, GLYCOSYLATED Today 01/27/2025 2:21 PM CDT Routine general medical examination at a health care facility HEPATITIS C ANTIBODY W/RFX TO HCV RNA Routine 01/27/2025 2:21 PM CDT Screening examination for STD (sexually transmitted disease) Need for hepatitis C screening test HIV AG/AB, 4TH GEN W/RFX Routine 01/27/2025 2:21 PM CDT Screening examination for STD (sexually transmitted disease) RPR(MONITOR) RFLX TO TITER (QST) Routine 01/27/2025 2:21 PM CDT Screening examination for STD (sexually transmitted disease) OUTSIDE LAB (SCAN ORDER) 01/22/2025 IMAGE GENERIC 01/22/2025 from Last 3 Months Results * HEPATITIS C ANTIBODY W/RFX TO HCV RNA (01/27/2025 2:21 PM CDT) HEPATITIS C AB NON-REACT SANDIE NON-REACT SANDIE [facility] Comment: HCV antibody was non-reactive. There is no laboratory evidence of HCV infection. In most cases, no further action is required. However, if recent HCV exposure is suspected, a test for HCV RNA (test code 95157) is suggested. For additional information please refer to http://education.Keynoir/faq/YYF80n9 (This link is being provided for informational/ educational purposes only.) 01/27/2025 2:21 PM CDT 01/27/2025 2:22 PM CDT Narrative Resulting Agency Comment Performing Organization Information: Site ID: OR Name: [facility] Address: [address] [place] [id number] Director: Babs Peña MD Heather Boyd MD LABORATORY Final Re sult [facility] [employer] [facility] [id number] [place] [id number], * RPR(MONITOR) RFLX TO TITER (QST) (01/27/2025 2:21 PM CDT) Pathologist [facility] RPR NON-REACT SANDIE NON-REACT SANDIE [facility] Comment: No laboratory evidence of syphilis. If recent exposure is suspected, submit a new sample in 2-4 weeks. 01/27/2025 2:21 PM CDT 01/27/2025 2:22 PM CDT Narrative Resulting Agency Comment Performing Organization Information: Site ID: [id number] Name: [facility] Address: [address] [place] [phone] Director: Babs Peña MD Heather Boyd MD LABORATORY Final Re sult Performing Organization Address [facility] de Phone Number [facility] JADA [facility] [address] [place] [address], * HIV AB, 4TH GEN (QST) (01/27/2025 2:21 PM CDT) INTERPRETATION [facility] Comment: HIV Negative HIV-1 antigen and HIV-1/HIV-2 antibodies were not detected. There is no laboratory evidence of HIV infection. HIV 1/2 AB+ HIV1 P24 AG NON-REACT SANDIE NON-REACT SANDIE [facility] 01/27/2025 2:21 PM CDT 01/27/2025 2:22 PM CDT Narrative Resulting Agency Comment Performing Organization Information: Site ID: [id number] Name: [facility] Address: [address] [place] [phone] Director: Babs Peña MD Heather Boyd MD LABORATORY Final Re sult Performing Organization Address [facility] de Phone Number [facility] [address] [address], * HEMOGLOBIN, GLYCOSYLATED (01/27/2025 2:21 PM CDT) HGB A1C 5.3 <5.7 % of total Hgb [facility] Comment: For the purpose of screening for the presence of diabetes: <5.7% Consistent with the absence of diabetes 5.7-6.4% Consistent with increased risk for diabetes (prediabetes) > or =6.5% Consistent with diabetes This assay result is consistent with a decreased risk of diabetes. Currently, no consensus exists regarding use of hemoglobin A1c for diagnosis of diabetes in children. According to [place] Diabetes Association (ADA) guidelines, hemoglobin A1c <7.0% represents optimal control in non- diabetic patients. Different metrics may apply to specific patient populations. Standards of Medical Care in Diabetes(ADA). 01/27/2025 2:21 PM CDT 01/27/2025 2:22 PM CDT Narrative Resulting Agency Comment Performing Organization Information: Site ID: SL Name: [facility] Address: [address] [place] [address] Director: Babs Peña us Heather Boyd MD LABORATORY Final Re sult [facility] - [place], [place] [id number] [place] [phone], * (ABNORMAL) COMPREHENSIVE METABOLIC PANEL (01/27/2025 2:21 PM CDT) GLUCOSE 73 65 - 99 mg/dL [place] [place] Comment: Fasting reference interval BUN 9 7 - 25 mg/dL [place] CREATININE S/P/B 0.55 0.50 - 0.97 mg/dL [place] GFR ESTIMATE 122 > OR = 60 mL/min/1. 73m2 [place] BUN CREATININE RATIO SEE NOTE: 6 - 22 (calc) [place] [place] Comment: Not Reported: BUN and Creatinine are within reference range. SODIUM S/P/B 138 135 - 146 mmol/L [place] POTASSIUM S/P/B 4.2 3.5 - 5.3 mmol/L [place] CHLORIDE S/P/B 100 98 - 110 mmol/L [place] CO2 35(H) 20 - 32 mmol/L [place] CALCIUM S/P/B 8.5(L) 8.6 - 10.2 mg/dL [place] TOTAL PROTEIN S/P/B 6.8 6.1 - 8.1 g/dL [place] ALBUMIN S/P/B 3.9 3.6 - 5.1 g/dL [place] GLOBULIN 2.9 1.9 - 3.7 g/dL (calc) [place] ALBUMIN/GLOBULIN RATIO 1.3 1.0 - 2.5 (calc) [place] [place] BILIRUBIN TOTAL S/P/B 0.4 0.2 - 1.2 mg/dL [place] ALKALINE PHOSPHATASE S/P/B 63 31 - 125 U/L [place] AST 27 10 - 30 U/L [place] ALT 18 6 - 29 U/L [place] 01/27/2025 2:21 PM CDT 01/27/2025 2:22 PM CDT Narrative Resulting Agency Comment Performing Organization Information: Site ID: SL Name: [facility] Address: [address] [place] [phone] Director: Babs Peña Heather Boyd MD LABORATORY Final Re sult [facility] - [place] [address] [phone], * LIPID PANEL (01/27/2025 2:21 PM CDT) CHOLESTEROL 146 <200 mg/dL [place] HDL 58 > OR = 50 mg/dL [place] TRIGLYCERIDES 98 <150 mg/dL [place] LDL (CALCULATED) 70 mg/dL (calc) [place] [place] Comment: Reference range: <100 Desirable range <100 mg/dL for primary prevention; <70 mg/dL for patients with CHD or diabetic patients with > or = 2 CHD risk factors. LDL-C is now calculated using the Neri calculation, which is a validated novel method providing better accuracy than the Friedewald equation in the estimation of LDL-C. Tunde MERRITT et al. JESSICA. 2013;310(19): 7503-3233 (http://education.PlaceWise Media.Purigen Biosystems/faq/HRT943) CHOL/HDL RATIO 2.5 <5.0 (calc) [facility] NON HDL CHOLESTEROL 88 <130 mg/dL (calc) [facility] [place] Comment: For patients with diabetes plus 1 major ASCVD risk factor, treating to a non-HDL-C goal of <100 mg/dL (LDL-C of <70 mg/dL) is considered a therapeutic option. 01/27/2025 2:21 PM CDT 01/27/2025 2:22 PM CDT Narrative Resulting Agency Comment Performing Organization Information: Site ID: SL Name: [facility] Address: [address] [place] [address] Director: Babs Peña us Heather Boyd MD LABORATORY Final Re sult [facility] - [place] [facility] [place] [address] [place] [address], [place] * OUTSIDE LAB (SCAN ORDER) (01/22/2025) 01/22/2025 us [facility] Scanned SCANNING Final Resu lt * IMAGE GENERIC (01/22/2025) Anatomical Region Laterality Modality Other 01/22/2025 us [facility] Scanned SCANNING Final Resu lt from Last 3 Months Insurance M[employer]LAN Care Teams Side Laster Relationship Specialty Start Date End Date Heather Boyd MD [address] [address] PCP - General FAMILY PRACTICE 01/21/25
[2025-03-01] MEDS: methylPREDNISolone ACETATE 40 MG/ML VIAL 80 MG IM (23:33)
== END 2025-03-01 23:41 | disposition home or self-care (01) ==
LOC: CHSED 23:29
PROVIDERS: Emergency Provider Emergency Medicine; PCP Student in an Organized Health Care Education/Training Program
DX: S00.86XA Insect bite (nonvenomous) of other part of head, initial encounter (principal); F17.210 Nicotine dependence, cigarettes, uncomplicated; W57.XXXA Bitten or stung by nonvenomous insect and other nonvenomous arthropods, initial encounter
CPT/HCPCS: 96372; 99283; J1010

== ENCOUNTER 2025-03-17 00:28 | Emergency (ER) | payer OTHER, SELFPAY ==
--- NOTE | ~2025-03-17 | XR_ITS ---
Examination: XR chest 1V portable Clinical History: cough, pleuritic chest pain x 3 days Comparison: 01/23/2025 Technique: Portable AP Findings: Heart size normal. Diffusely increased interstitial markings. No acute bony abnormality. IMPRESSION: 1. Interstitial pulmonary edema and/or pneumonitis. Reviewed, dictated and finalized at location R.
[2025-03-17 00:28] VITALS: BP 124/66; PULSE 69; RESP 18; TEMP 35.9; O2SAT 100
--- OUTSIDE RECORDS SUMMARY | 2025-03-17 00:30 | XMS_ITS | Encounter Summary ---
Author Organization [facility] Address [address] [place] [address] Care Team Providers Care Stockroom Clerk Name Role Phone Heather Boyd MD Primary Care Provider + Encounter Details Date Type Department Care Team (Late st Contact Info) Description 02/02/2025 Montage Talent Message Enc [facility] Group Family Medicine [facility] [address] [place] [phone] [facility] Provider Appt with Dr. Boyd on 02/04/25 Social History Tobacco Use Types Packs/Day Years Used Date Smoking Tobacco: Every Day Cigarettes 1 19.8 Started: 2004; Last attempted to quit: 2008 [...] on filedocumented in this encounter Care Teams Stockroom Clerk Relationship Specialty Start Date End Date Heather Boyd MD [address] [place] [address] PCP - General FAMILY PRACTICE 01/21/25 documented as of this encounter
--- OUTSIDE RECORDS SUMMARY | 2025-03-17 00:30 | XMS_ITS | Clinical Summary ---
Author Organization [facility] [address] Address [address] [place] [phone] Care Team Providers Care Backshoe Person Name Role Phone Moise Tinoco MD Primary Care Provider [phone] Martinez Boyel MD Unavailable [phone] Allergies Active Allergy Reactions Criticality Noted Date [...] 08/11/2021 Assessment & Plan (08/13/2021 5:10 PM OVERHAULER BUS TRUCK): A initial well visit to establish care [...] Date Smoking Tobacco: Every Day Cigarettes 0.5 22.8 Started: 2002 Smokeless Tobacco: Never AUDIT-C Answer [...] on file Legal Sex Female 2:41 PM OVERHAULER BUS TRUCK Gender Identity Not on file Sexual Orientation Not on file 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
--- OUTSIDE RECORDS SUMMARY | 2025-03-17 00:30 | XMS_ITS | Encounter Summary ---
Author Organization [facility] Address [address] [place] [address] Care Team Providers Care Estate Attorney Name Role Phone Heather Boyd MD Primary Care Provider + Encounter Details Date Type Department Care Team (Late st Contact Info) Description 01/30/2025 Results Follow-Up [facility] Family Medicine [facility] [address] [facility] [address] [place] [phone] Heather Boyd MD [address] [place] [phone] RPR(MONITOR) RFLX TO TITER (QST), HIV [...] on filedocumented in this encounter Care Teams Estate Attorney Relationship Specialty Start Date End Date Heather Boyd MD [address] [place] [address] PCP - General FAMILY PRACTICE 01/21/25 documented as of this encounter
--- OUTSIDE RECORDS SUMMARY | 2025-03-17 00:30 | XMS_ITS | Clinical Summary ---
Author Organization [facility] Address [address] [place] [address] Care Team Providers Care Blow Mold Machine Operator Name Role Phone Heather Boyd MD [...] Encounters Date Type Department Care Team Description 03/01/2025 Scan [facility] INFO SRVCS Scanned, Doc Med Group 02/02/2025 MyChart Message Enc [facility] - [place] [address] [place] [address] Faviola, [facility] Provider Appt with Dr. Boyd on 02/04/25 01/30/2025 Results Follow-Up [place] [address] [place] [address] Heather Boyd MD RPR(MONITOR) RFLX TO TITER (QST), HIV AB, 4TH GEN (QST), HEPATITIS C ANTIBODY W/RFX TO HCV RNA, Additional followed-up results: 3 01/22/2025 Scan Fronto INFO SRVCS Scanned, Doc Med Group Lab (SCAN); Image (SCAN) 01/21/2025 1:40 PM CDT Office Visit [address] [place] [address] Heather Boyd MD New Patient (Here to [...] Cancer Screening with HPV 2018 COVID-19 Vaccine (2023-2 5 season) 2025 Influenza Adult (#1) 2025 Annual Physical 01/21/2026 01/21/2025 PHQ-2 (Physician [employer] [place]) Completed 01/21/2025 Hepatitis C Completed 01/27/2025 Meningococcal [...] HEPATITIS C AB NON-REACT SANDIE NON-REACT SANDIE [employer] [facility] Comment: HCV antibody was non-reactive. There is no laboratory evidence of HCV infection. In most cases, no further action is required. However, if recent HCV exposure is suspected, a test for HCV RNA (test code 70314) is suggested. For additional information please refer to http://education.DebtMarket/faq/AAC01a1 (This link is being provided for informational/ educational purposes only.) 01/27/2025 2:21 PM CDT 01/27/2025 2:22 PM CDT Narrative Resulting Agency Comment Performing Organization Information: Site ID: ME Name: [facility] Address: [address] [place] [phone] Director: Babs Peña MD us Heather Boyd MD LABORATORY Final Re sult [facility] - [facility] [id number] [place] [address] [place] [address], [place] * RPR(MONITOR) RFLX TO TITER (QST) (01/27/2025 2:21 PM CDT) RPR NON-REACT SANDIE NON-REACT SANDIE [employer] [facility] Comment: No laboratory evidence of syphilis. If recent exposure is suspected, submit a new sample in 2-4 weeks. 01/27/2025 2:21 PM CDT 01/27/2025 2:22 PM CDT Narrative Resulting Agency Comment Performing Organization Information: Site ID: DANIELA Name: [employer] [facility] Address: [address] [place] [phone] Director: Babs Peña MD Heather Boyd MD LABORATORY Final Re sult Performing Organization Address City/[facility]/ZIP Co de Phone Number [facility] JADA HARRELL [facility] [address] [address], [place] * HIV AB, 4TH GEN (QST) (01/27/2025 2:21 PM CDT) INTERPRETATION [facility] [employer] [facility] Comment: HIV Negative HIV-1 antigen and HIV-1/HIV-2 antibodies were not detected. There is no laboratory evidence of HIV infection. HIV 1/2 AB+ HIV1 P24 AG NON-REACT SANDIE NON-REACT SANDIE [employer] [facility] 01/27/2025 2:21 PM CDT 01/27/2025 2:22 PM CDT Narrative Resulting Agency Comment Performing Organization Information: Site ID: DANIELA Name: [employer] [facility] Address: [address] [place] [phone] Director: Babs Peña MD us Heather Boyd MD LABORATORY Final Re sult Performing Organization Address City/[facility] Co de Phone Number [employer] Keiry HARRELL [facility] [address] [address], [place] * HEMOGLOBIN, GLYCOSYLATED (01/27/2025 2:21 PM CDT) HGB A1C 5.3 <5.7 % of total Hgb [facility] Media[facility] [place] Comment: For the purpose of screening for the presence of diabetes: <5.7% Consistent with the absence of diabetes 5.7-6.4% Consistent with increased risk for diabetes (prediabetes) > or =6.5% Consistent with diabetes This assay result is consistent with a decreased risk of diabetes. Currently, no consensus exists regarding use of hemoglobin A1c for diagnosis of diabetes in children. According to [place] Diabetes Association (ADA) guidelines, hemoglobin A1c <7.0% represents optimal control in non- diabetic patients. Different metrics may apply to specific patient populations. Standards of Medical Care in Diabetes(ADA). 01/27/2025 2:21 PM CDT 01/27/2025 2:22 PM CDT Narrative Resulting Agency Comment Performing Organization Information: Site ID: [place] Name: [facility] Address: [facility] [place] [address] Director: Babs Peña us Heather Boyd MD LABORATORY Final Re sult [facility] JADA Ricci C[place], [place] [id number] [place] [phone], * (ABNORMAL) COMPREHENSIVE METABOLIC PANEL (01/27/2025 2:21 PM CDT) Pathologist [facility] GLUCOSE 73 65 - 99 mg/dL [place] Comment: Fasting reference interval BUN 9 7 - 25 mg/dL [place] CREATININE S/P/B 0.55 0.50 - 0.97 mg/dL [place] GFR ESTIMATE 122 > OR = 60 mL/min/1. 73m2 [place] BUN CREATININE RATIO SEE NOTE: 6 - 22 (calc) [place] Comment: Not Reported: BUN and Creatinine are within reference range. SODIUM S/P/B 138 135 - 146 mmol/L [place] POTASSIUM S/P/B 4.2 3.5 - 5.3 mmol/L [place] CHLORIDE S/P/B 100 98 - 110 mmol/L [place] CO2 35(H) 20 - 32 mmol/L [place] CALCIUM S/P/B 8.5(L) 8.6 - 10.2 mg/dL [place] TOTAL PROTEIN S/P/B 6.8 6.1 - 8.1 g/dL [place] ALBUMIN S/P/B 3.9 3.6 - 5.1 g/dL [place] GLOBULIN 2.9 1.9 - 3.7 g/dL (calc) [place] ALBUMIN/GLOBULIN RATIO 1.3 1.0 - 2.5 (calc) [place] BILIRUBIN TOTAL S/P/B 0.4 0.2 - 1.2 mg/dL [place] ALKALINE PHOSPHATASE S/P/B 63 31 - 125 U/L [place] AST 27 10 - 30 U/L [place] ALT 18 6 - 29 U/L [place] 01/27/2025 2:21 PM CDT 01/27/2025 2:22 PM CDT Narrative Resulting Agency Comment Performing Organization Information: Site ID: Name: [facility] Address: [address] [place] [phone] Director: Babs ePña Heather Boyd MD LABORATORY Final Re sult [facility] [address] [phone] [[email or web address]] * LIPID PANEL (01/27/2025 2:21 PM CDT) CHOLESTEROL 146 <200 mg/dL [place] HDL 58 > OR = 50 mg/dL [place] TRIGLYCERIDES 98 <150 mg/dL [place] LDL (CALCULATED) 70 mg/dL (calc) [place] Comment: Reference range: <100 Desirable range <100 mg/dL for primary prevention; <70 mg/dL for patients with CHD or diabetic patients with > or = 2 CHD risk factors. LDL-C is now calculated using the Neri calculation, which is a validated novel method providing better accuracy than the Friedewald equation in the estimation of LDL-C. Tunde MERRITT et al. JESSICA. 2013;310(19): 8059-1015 (http://education.Directed Edge.Predixion Software/faq/UMS259) CHOL/HDL RATIO 2.5 <5.0 (calc) [place] NON HDL CHOLESTEROL 88 <130 mg/dL (calc) [place] Comment: For patients with diabetes plus 1 major ASCVD risk factor, treating to a non-HDL-C goal of <100 mg/dL (LDL-C of <70 mg/dL) is considered a therapeutic option. 01/27/2025 2:21 PM CDT 01/27/2025 2:22 PM CDT Narrative Resulting Agency Comment Performing Organization Information: Site ID: SL Name: [facility] Address: [facility] [place] [address] Director: Babs Peña Heather Boyd MD LABORATORY Final Re sult [employer] - [place] ORD[place] [facility] MediaV[facility] [place], [place] [address] [place] [phone], * OUTSIDE LAB (SCAN ORDER) (01/22/2025) 01/22/2025 [facility] Scanned SCANNING Final Resu lt * IMAGE GENERIC (01/22/2025) Anatomical Region Laterality Modality Other 01/22/2025 [facility] Scanned SCANNING Final Resu lt from Last 3 [place]ths [place] [address] MULTIPLAN Care Teams Blow Mold Machine Operator Relationship Specialty Start Date End Date Heather Boyd MD [address] [place] [phone] PCP - General FAMILY PRACTICE 01/21/25
--- NOTE | 2025-03-17 00:48 | ED.GENADULT ---
HPI - General Adult General Chief complaint: Upper Respiratory Infection Stated complaint: cough Time Seen by Provider: 03/17/25 00:30 History of Present Illness HPI narrative: Christine is a 34F with a PMH of tobacco abuse and obesity that presented to the ED with 3 days of cough, congestion, pleuritic chest pain and fatigue. No cardiac type chest pain, lightheadedness, or vomiting. Related Data Allergies Allergy/AdvReac Type Severity Reaction Status Date / Time Penicillins Allergy Mild DIARRHEA Verified 03/17/25 00:37 AMOXICILLIN TRIHYDRATE Allergy Unknown Diarrhea Uncoded 01/22/25 22:56 Review of Systems Review of Systems: All systems reviewed & are unremarkable except as noted in HPI and below PMFSH Past Medical History Medical History Anxiety Family planning Morbid obesity Surgical History Surgical History History of Social History Social History Smoking packs per day: 0.25 Smoking cigarettes per day: 5.0 Smoking status: Current every day smoker Alcohol intake: current Substance use: unknown Living arrangements: with family Gender identity (if verbalized by the patient): Female Exam Const: General: cooperative, healthy appearing, comfortable, no acute distress, well developed, alert, awake and Physically active Orientation/consciousness: oriented to person, oriented to place and oriented to time HENMT: Head: normal to inspection, normocephalic and atraumatic Ears: hearing grossly normal bilaterally and external ears normal Face/Nose/Sinus: Normal external nose present Eyes: General: appearance normal, both eyes and all related structures Periorbital: periorbital findings normal Sclera: sclerae normal Pupils: Equal, round and reactive pupils present Neck: Neck: normal visual inspection Chest: Chest palpation & inspection: normal inspection of the chest Resp: Effort & Inspection: normal respiratory effort, able to speak in complete sentences and no respiratory distress Other: diffuse scant wheezing but good air flow Cardio: Jugular venous distension: no JVD Rate: regular rate Rhythm: regular rhythm Skin: General skin exam: normal color and no rashes or lesions noted Neuro: General: oriented to person, oriented to place and oriented to time Cranial nerves: Yes Equal, round and reactive pupils present Extrem: General: normal to inspection Course Course Emergency Course: CXR, viral testing. Ordered duoneb Viral testing negative. Given wheezing and smoking history will treat for possible COPD exacerbation. Vital Signs Vital signs: Vital Signs Temperature 96.6 F L 03/17/25 00:28 Pulse Rate 69 03/17/25 00:28 Respiratory Rate 18 03/17/25 00:28 Blood Pressure 124/66 03/17/25 00:28 Pulse Oximetry 100 03/17/25 00:28 Oxygen Delivery Room Air 03/17/25 00:28 Temperature 97.8 F 03/17/25 02:10 Pulse Rate 70 03/17/25 02:10 Respiratory Rate 17 03/17/25 02:10 Blood Pressure 125/68 03/17/25 02:10 Pulse Oximetry 100 03/17/25 02:10 Oxygen Delivery Room Air 03/17/25 02:10 Medical Decision Making Vital Signs Vital Signs: Vital Signs Temperature 96.6 F L 03/17/25 00:28 Pulse Rate 69 03/17/25 00:28 Respiratory Rate 18 03/17/25 00:28 Blood Pressure 124/66 03/17/25 00:28 Pulse Oximetry 100 03/17/25 00:28 Oxygen Delivery Room Air 03/17/25 00:28 Temperature 97.8 F 03/17/25 02:10 Pulse Rate 70 03/17/25 02:10 Respiratory Rate 17 03/17/25 02:10 Blood Pressure 125/68 03/17/25 02:10 Pulse Oximetry 100 03/17/25 02:10 Oxygen Delivery Room Air 03/17/25 02:10 Lab Data Labs: Lab Results 03/17/25 Range/Units 00:37 Influenza A (RT-PCR) Negative (Negative) Influenza B (RT-PCR) Negative (Negative) RSV (RT-PCR) Negative (Negative) SARS-CoV-2 RNA (RT-PCR) Negative (Negative) Discharge Plan Discharge Clinical Impression: Bronchitis Patient Disposition: Home Condition: Stable Instructions: Antibiotic Form Patient Language: Icelandic Prescriptions: New prednisone 50 mg tablet 50 mg PO DAILY Qty: 4 0RF azithromycin 250 mg tablet 250 mg PO DAILY 4 Days Qty: 4 0RF Rx Instructions: start on day 2 of therapy No Action prednisone 10 mg tablet 10 mg PO DAILY Qty: 7 0RF Follow-up/Referrals: Oliver,Heather Dawson MD [Primary Care Provider, Unknown] Stand Alone Forms: Work/School Release IP
[2025-03-17] MEDS: IPRATROPIUM 0.5 MG/ALBUTEROL SULFATE 2.5 MG (BASE) AMPUL.NEB 3 ML INHALATION (00:57)
[2025-03-17 01:19] LABS: Influenza A QL RT-PCR Negative (Negative); Influenza B QL RT-PCR Negative (Negative); RSV RNA, RT-PCR Negative (Negative); SARS-CoV-2 RNA PCR Negative (Negative)
--- OUTSIDE RECORDS SUMMARY | 2025-03-17 01:22 | XMS_ITS | Encounter Summary ---
Author Organization [facility] Address [address] [place] [address] Care Team Providers Care Business Management Professor Name Role Phone Heather Boyd MD Primary Care Provider + Encounter Details Date Type Department Care Team (Late st Contact Info) Description 01/30/2025 Results Follow-Up [facility] [address] [facility] [address] [place] [phone] Heather Boyd MD [address] [place] [phone] RPR(MONITOR) RFLX TO TITER (QST), HIV [...] on filedocumented in this encounter Care Teams Business Management Professor Relationship Specialty Start Date End Date Heather Boyd MD [address] [place] [address] PCP - General FAMILY PRACTICE 01/21/25 documented as of this encounter
--- OUTSIDE RECORDS SUMMARY | 2025-03-17 01:22 | XMS_ITS | Clinical Summary ---
Author Organization [facility] Address [address] [place] [address] Care Team Providers Care Clinical Appeals Auditor Name Role Phone Heather Boyd MD Primary [...] Doc Med Group 02/02/2025 MyChart Message Enc [facility] - [place] [address] [place] [address] Faviola, [facility] Provider Appt with Dr. Boyd on 02/04/25 01/30/2025 Results Follow-Up [place] [address] [place] [address] Heather Boyd MD RPR(MONITOR) RFLX TO TITER (QST), HIV AB, 4TH GEN (QST), HEPATITIS C ANTIBODY W/RFX TO HCV RNA, Additional followed-up results: 3 01/22/2025 Scan [employer] INFO SRVCS Scanned, Doc Med Group Lab (SCAN); Image (SCAN) 01/21/2025 1:40 PM CDT Office Visit [address] [place] [address] Heather Boyd MD New Patient (Here to [...] 2025 Annual Physical 01/21/2026 01/21/2025 PHQ-2 (Physician [place]) Completed 01/21/2025 Hepatitis C Completed 01/27/2025 Meningococcal [...] HEPATITIS C AB NON-REACT SANDIE NON-REACT SANDIE [employer] [facility] Comment: HCV antibody was non-reactive. There is no laboratory evidence of HCV infection. In most cases, no further action is required. However, if recent HCV exposure is suspected, a test for HCV RNA (test code 82815) is suggested. For additional information please refer to http://education.Adams Arms/faq/XSS86m2 (This link is being provided for informational/ educational purposes only.) 01/27/2025 2:21 PM CDT 01/27/2025 2:22 PM CDT Narrative Resulting Agency Comment Performing Organization Information: Site ID: [place] Name: [facility] Address: [address] [place] [phone] Director: Babs Peña MD us Heather Boyd MD LABORATORY Final Re sult [employer] [facility] - [facility] [employer] [facility] [id number] [place] [address] [place] [address], [place] * RPR(MONITOR) RFLX TO TITER (QST) (01/27/2025 2:21 PM CDT) RPR NON-REACT SANDIE NON-REACT SANDIE [employer] [facility] Comment: No laboratory evidence of syphilis. If recent exposure is suspected, submit a new sample in 2-4 weeks. 01/27/2025 2:21 PM CDT 01/27/2025 2:22 PM CDT Narrative Resulting Agency Comment Performing Organization Information: Site ID: DANIELA Name: [employer] [facility] Address: [address] [place] [phone] Director: Babs Peña MD Heather Boyd MD LABORATORY Final Re sult Performing Organization Address City/[facility]/ZIP Co de Phone Number [employer] JADA HARRELL [employer] [address] [address], [place] * HIV AB, 4TH GEN (QST) (01/27/2025 2:21 PM CDT) INTERPRETATION [facility] [employer] [facility] Comment: HIV Negative HIV-1 antigen and HIV-1/HIV-2 antibodies were not detected. There is no laboratory evidence of HIV infection. HIV 1/2 AB+ HIV1 P24 AG NON-REACT SANDIE NON-REACT SANDIE [employer] [facility] 01/27/2025 2:21 PM CDT 01/27/2025 2:22 PM CDT Narrative Resulting Agency Comment Performing Organization Information: Site ID: DANIELA Name: [employer] [facility] Address: [address] [place] [phone] Director: Babs Peña MD us Heather Boyd MD LABORATORY Final Re sult Performing Organization Address City/[facility] Co de Phone Number [employer] Keiry HARRELL [employer] [address] [address], [place] * HEMOGLOBIN, GLYCOSYLATED (01/27/2025 2:21 PM CDT) HGB A1C 5.3 <5.7 % of total Hgb [facility] Limited[facility]AM[facility], [place] Comment: For the purpose of screening for the presence of diabetes: <5.7% Consistent with the absence of diabetes 5.7-6.4% Consistent with increased risk for diabetes (prediabetes) > or =6.5% Consistent with diabetes This assay result is consistent with a decreased risk of diabetes. Currently, no consensus exists regarding use of hemoglobin A1c for diagnosis of diabetes in children. According to [place] Diabetes Association (ADA) guidelines, hemoglobin A1c <7.0% represents optimal control in non- diabetic patients. Different metrics may apply to specific patient populations. Standards of Medical Care in Diabetes(ADA). 01/27/2025 2:21 PM CDT 01/27/2025 2:22 PM CDT Narrative Resulting Agency Comment Performing Organization Information: Site ID: [place] Name: [facility] Address: [facility] [place] [address] Director: Babs Peña us Heather Boyd MD LABORATORY Final Re sult [employer] [facility] CECILIA ORDERS [place], [place] [id number] [place] [phone], * (ABNORMAL) COMPREHENSIVE METABOLIC PANEL (01/27/2025 2:21 PM CDT) Pathologist [facility] GLUCOSE 73 65 - 99 mg/dL [place], [place] Comment: Fasting reference interval BUN 9 7 - 25 mg/dL [place], [place] CREATININE S/P/B 0.55 0.50 - 0.97 mg/dL [place], [place] GFR ESTIMATE 122 > OR = 60 mL/min/1. 73m2 [place], [place] BUN CREATININE RATIO SEE NOTE: 6 - 22 (calc) [place] Comment: Not Reported: BUN and Creatinine are within reference range. SODIUM S/P/B 138 135 - 146 mmol/L [place], [place] POTASSIUM S/P/B 4.2 3.5 - 5.3 mmol/L [place] CHLORIDE S/P/B 100 98 - 110 mmol/L [place] CO2 35(H) 20 - 32 mmol/L [place] CALCIUM S/P/B 8.5(L) 8.6 - 10.2 mg/dL [place] TOTAL PROTEIN S/P/B 6.8 6.1 - 8.1 g/dL [place] ALBUMIN S/P/B 3.9 3.6 - 5.1 g/dL [place] GLOBULIN 2.9 1.9 - 3.7 g/dL (calc) [place] ALBUMIN/GLOBULIN RATIO 1.3 1.0 - 2.5 (calc) [place] BILIRUBIN TOTAL S/P/B 0.4 0.2 - 1.2 mg/dL [place] ALKALINE PHOSPHATASE S/P/B 63 31 - 125 U/L [place] AST 27 10 - 30 U/L [place] ALT 18 6 - 29 U/L [place] 01/27/2025 2:21 PM CDT 01/27/2025 2:22 PM CDT Narrative Resulting Agency Comment Performing Organization Information: Site ID: Name: [facility] Address: [address] [place] [phone] Director: Babs Peña Heather Boyd MD LABORATORY Final Re sult [facility] ORDERS [address] [phone] * LIPID PANEL (01/27/2025 2:21 PM CDT) CHOLESTEROL 146 <200 mg/dL [place] HDL 58 > OR = 50 mg/dL [place] TRIGLYCERIDES 98 <150 mg/dL [place] LDL (CALCULATED) 70 mg/dL (calc) [place] Comment: Reference range: <100 Desirable range <100 mg/dL for primary prevention; <70 mg/dL for patients with CHD or diabetic patients with > or = 2 CHD risk factors. LDL-C is now calculated using the Neri calculation, which is a validated novel method providing better accuracy than the Friedewald equation in the estimation of LDL-C. Tunde MERRITT et al. JESSICA. 2013;310(19): 5645-0155 (http://education.Payoneer.Alkami Technology/faq/EXL323) CHOL/HDL RATIO 2.5 <5.0 (calc) [place] NON HDL CHOLESTEROL 88 <130 mg/dL (calc) [place] Comment: For patients with diabetes plus 1 major ASCVD risk factor, treating to a non-HDL-C goal of <100 mg/dL (LDL-C of <70 mg/dL) is considered a therapeutic option. 01/27/2025 2:21 PM CDT 01/27/2025 2:22 PM CDT Narrative Resulting Agency Comment Performing Organization Information: Site ID: [place] Name: [facility] Address: [facility] [place] [address] Director: Babs Peña Heather Boyd MD LABORATORY Final Re sult [employer] - [place] ORDERS [facility] LimitedHAMMOND, [place] [id number] [place] [phone], * OUTSIDE LAB (SCAN ORDER) (01/22/2025) 01/22/2025 [facility] Scanned SCANNING Final Resu lt * IMAGE GENERIC (01/22/2025) Anatomical Region Laterality Modality Other 01/22/2025 [facility] Scanned SCANNING Final Resu lt from Last 3 [place]ths [place] [phone] MULTIPLAN Care Teams Clinical Appeals Auditor Relationship Specialty Start Date End Date Heather Boyd MD [address] [place] [address] PCP - General FAMILY PRACTICE 01/21/25
--- OUTSIDE RECORDS SUMMARY | 2025-03-17 01:22 | XMS_ITS | Clinical Summary ---
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
[2025-03-17] MEDS: predniSONE 40 MG, predniSONE 10 MG 50 MG PO (01:46)
[2025-03-17] MEDS: AZITHROMYCIN 250 MG TABLET 500 MG PO (01:47)
[2025-03-17 02:10] VITALS: BP 125/68; PULSE 70; RESP 17; TEMP 36.6; O2SAT 100
== END 2025-03-17 02:10 | disposition home or self-care (01) ==
PROVIDERS: Emergency Provider Family Medicine; PCP Student in an Organized Health Care Education/Training Program
DX: J40 Bronchitis, not specified as acute or chronic (principal); F17.210 Nicotine dependence, cigarettes, uncomplicated; Z20.822 Contact with and (suspected) exposure to COVID-19
CPT/HCPCS: 71045; 87637; 99283; A9270; J7512

== ENCOUNTER 2025-03-19 00:54 | Emergency (ER) | payer OTHER, SELFPAY ==
--- OUTSIDE RECORDS SUMMARY | 2025-03-19 00:57 | XMS_ITS | Clinical Summary ---
Author Organization [facility] [place] Address [address] [place] [address] Care Team Providers Care Manager Welding Name Role Phone Heather Boyd MD Primary [...] Doc Med Group 02/02/2025 MyChart Message Enc [facility] [place] [address] [place] [address] [place], [facility] Provider Appt with Dr. Boyd on 02/04/25 01/30/2025 Results Follow-Up [place] [address] [place] [address] Heather Boyd MD RPR(MONITOR) RFLX TO TITER (QST), HIV AB, 4TH GEN (QST), HEPATITIS C ANTIBODY W/RFX TO HCV RNA, Additional followed-up results: 3 01/22/2025 Scan Simpl[employer] INFO SRVCS Scanned, Doc [facility] Lab (SCAN); Image (SCAN) 01/21/2025 1:40 PM CDT Office Visit [address] [place] [address] Heather Boyd MD New Patient (Here to [...] 2025 Annual Physical 01/21/2026 01/21/2025 PHQ-2 (Physician [place]) Completed 01/21/2025 Hepatitis C Completed 01/27/2025 Meningococcal [...] HEPATITIS C AB NON-REACT SANDIE NON-REACT SANDIE [facility] Comment: HCV antibody was non-reactive. There is no laboratory evidence of HCV infection. In most cases, no further action is required. However, if recent HCV exposure is suspected, a test for HCV RNA (test code 95435) is suggested. For additional information please refer to http://education.[employer]/faq/ZOJ45w5 (This link is being provided for informational/ educational purposes only.) 01/27/2025 2:21 PM CDT 01/27/2025 2:22 PM CDT Narrative Resulting Agency Comment Performing Organization Information: Site ID: [id number] Name: [employer] Address: [id number] [place] [phone] Director: Babs Peña MD us Heather Boyd MD LABORATORY Final Re sult [facility] [facility] [employer] [facility] [id number] [place] [address] [place] [address], VJ * RPR(MONITOR) RFLX TO TITER (QST) (01/27/2025 2:21 PM CDT) RPR NON-REACT SANDIE NON-REACT SANDIE [facility] Comment: No laboratory evidence of syphilis. If recent exposure is suspected, submit a new sample in 2-4 weeks. 01/27/2025 2:21 PM CDT 01/27/2025 2:22 PM CDT Narrative Resulting Agency Comment Performing Organization Information: Site ID: [email or web address] Name: [email or web address] [facility] Address: [address] [place] [phone] Director: Babs Peña MD Heather Boyd MD LABORATORY Final Re sult Performing Organization Address City/[facility]/ZIP Co de Phone Number [employer] JADA HARRELL [employer] [address] [address], [place] * HIV AB, 4TH GEN (QST) (01/27/2025 2:21 PM CDT) [facility] [employer] [facility] Comment: HIV Negative HIV-1 antigen and HIV-1/HIV-2 antibodies were not detected. There is no laboratory evidence of HIV infection. HIV 1/2 AB+ HIV1 P24 AG NON-REACT SANDIE NON-REACT SANDIE [facility] 01/27/2025 2:21 PM CDT 01/27/2025 2:22 PM CDT Narrative Resulting Agency Comment Performing Organization Information: Site ID: [email or web address] Name: [email or web address] [facility] Address: [address] [place] [phone] Director: Babs Peña MD us Heather Boyd MD LABORATORY Final Re sult Performing Organization Address City/[facility] Co de Phone Number [facility] Keiry HARRELL [employer] [address] [address], [place] * HEMOGLOBIN, GLYCOSYLATED (01/27/2025 2:21 PM CDT) HGB A1C 5.3 <5.7 % of total Hgb [facility] Comment: For the purpose of screening for the presence of diabetes: <5.7% Consistent with the absence of diabetes 5.7-6.4% Consistent with increased risk for diabetes (prediabetes) > or =6.5% Consistent with diabetes This assay result is consistent with a decreased risk of diabetes. Currently, no consensus exists regarding use of hemoglobin A1c for diagnosis of diabetes in children. According to [place] Diabetes Association (ADA) guidelines, hemoglobin A1c <7.0% represents optimal control in non- diabetic patients. Different metrics may apply to specific patient populations. Standards of Medical Care in Diabetes(ADA). 01/27/2025 2:21 PM CDT 01/27/2025 2:22 PM CDT Narrative Resulting Agency Comment Performing Organization Information: Site ID: [id number] Name: [facility] Address: [facility] [place] [address] Director: Babs Peña us Heather Boyd MD LABORATORY Final Re sult [employer] [facility]ADA Ricci [facility] [place] [id number] [place] [phone], * (ABNORMAL) COMPREHENSIVE METABOLIC PANEL (01/27/2025 2:21 PM CDT) Pathologist [facility] GLUCOSE 73 65 - 99 mg/dL [place] Comment: Fasting reference interval BUN 9 7 - 25 mg/dL [place] CREATININE S/P/B 0.55 0.50 - 0.97 mg/dL [place] GFR ESTIMATE 122 > OR = 60 mL/min/1. 73m2 [place] BUN CREATININE RATIO SEE NOTE: 6 - 22 (calc) [place] Comment: Not Reported: BUN and Creatinine are within reference range. SODIUM S/P/B 138 135 - 146 mmol/L [place] POTASSIUM S/P/B 4.2 3.5 - 5.3 mmol/L [place] CHLORIDE S/P/B 100 98 - 110 mmol/L [place] CO2 35(H) 20 - 32 mmol/L [place] CALCIUM S/P/B 8.5(L) 8.6 - 10.2 mg/dL [place] TOTAL PROTEIN S/P/B 6.8 6.1 - 8.1 g/dL [place] ALBUMIN S/P/B 3.9 3.6 - 5.1 g/dL [place] GLOBULIN 2.9 1.9 - 3.7 g/dL (calc) [place] ALBUMIN/GLOBULIN RATIO 1.3 1.0 - 2.5 (calc) [place] BILIRUBIN TOTAL S/P/B 0.4 0.2 - 1.2 mg/dL [place] ALKALINE PHOSPHATASE S/P/B 63 31 - 125 U/L [place] AST 27 10 - 30 U/L [place] ALT 18 6 - 29 U/L [place] 01/27/2025 2:21 PM CDT 01/27/2025 2:22 PM CDT Narrative Resulting Agency Comment Performing Organization Information: Site ID: Name: [facility] Address: [address] [place] [phone] Director: Babs Peña Heather Boyd MD LABORATORY Final Re sult [facility] [address] [phone] * LIPID PANEL (01/27/2025 2:21 PM CDT) CHOLESTEROL 146 <200 mg/dL [place] HDL 58 > OR = 50 mg/dL [place] TRIGLYCERIDES 98 <150 mg/dL [place] LDL (CALCULATED) 70 mg/dL (calc) [place] Comment: Reference range: <100 Desirable range <100 mg/dL for primary prevention; <70 mg/dL for patients with CHD or diabetic patients with > or = 2 CHD risk factors. LDL-C is now calculated using the Neri calculation, which is a validated novel method providing better accuracy than the Friedewald equation in the estimation of LDL-C. Tunde MERRITT et al. JESSICA. 2013;310(19): 5779-2629 (http://education.iCrossing.Okan/faq/KDR552) CHOL/HDL RATIO 2.5 <5.0 (calc) [place] NON HDL CHOLESTEROL 88 <130 mg/dL (calc) [place] Comment: For patients with diabetes plus 1 major ASCVD risk factor, treating to a non-HDL-C goal of <100 mg/dL (LDL-C of <70 mg/dL) is considered a therapeutic option. 01/27/2025 2:21 PM CDT 01/27/2025 2:22 PM CDT Narrative Resulting Agency Comment Performing Organization Information: Site ID: [id number] Name: [facility] Address: [facility] [place] [address] Director: Babs Peña Heather Boyd MD LABORATORY Final Re sult [facility] [id number] [place] [phone], * OUTSIDE LAB (SCAN ORDER) (01/22/2025) 01/22/2025 [facility] Scanned SCANNING Final Resu lt * IMAGE GENERIC (01/22/2025) Anatomical Region Laterality Modality Other 01/22/2025 [facility] Scanned SCANNING Final Resu lt from Last 3 [place] [phone] MULTIPLAN Care Teams Manager Welding Relationship Specialty Start Date End Date Heather Boyd MD [address] [place] [phone] PCP - General FAMILY PRACTICE 01/21/25
--- OUTSIDE RECORDS SUMMARY | 2025-03-19 00:57 | XMS_ITS | Encounter Summary ---
Author Organization [facility] Address [address] [place] [address] Care Team Providers Care Bottle House Pumper Name Role Phone Heather Boyd MD Primary Care Provider + Encounter Details Date Type Department Care Team (Late st Contact Info) Description 01/30/2025 Results Follow-Up [facility] Medical Group Family Medicine [facility] [address] [facility] [address] [place] [phone] Heather Boyd MD [address] [place] [phone] RPR(MONITOR) RFLX TO TITER (QST), HIV [...] on filedocumented in this encounter Care Teams Bottle House Pumper Relationship Specialty Start Date End Date Heather Boyd MD [address] [place] [address] PCP - General FAMILY PRACTICE 01/21/25 documented as of this encounter
--- OUTSIDE RECORDS SUMMARY | 2025-03-19 00:57 | XMS_ITS | Clinical Summary ---
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
--- OUTSIDE RECORDS SUMMARY | 2025-03-19 00:57 | XMS_ITS | Encounter Summary ---
Author Organization [facility] Address [address] [place] [address] Care Team Providers Care Explosives Truck Driver Name Role Phone Heather Boyd MD Primary Care Provider + Encounter Details Date Type Department Care Team (Late st Contact Info) Description 02/02/2025 [employer] Message Enc [facility] Medical Group Family Medicine [facility] [address] [place] [phone] [employer] Provider Appt with Dr. Boyd on 02/04/25 [...] on filedocumented in this encounter Care Teams Explosives Truck Driver Relationship Specialty Start Date End Date Heather Boyd MD [address] [place] [address] PCP - General FAMILY PRACTICE 01/21/25 documented as of this encounter
[2025-03-19 01:02] VITALS: BP 157/86; PULSE 87; RESP 20; TEMP 36.7; O2SAT 98
--- NOTE | 2025-03-19 01:23 | ED_ITS ---
HPI - URI/Sore Throat General Chief Complaint: Upper Respiratory Infection Stated Complaint: COUGH Time Seen by Provider: 03/19/25 01:02 Source: patient Mode of arrival: ambulatory Limitations: no limitations History of Present Illness HPI Narrative: 34-year-old here with a complains of nonproductive cough for past 1 week she was recently seen was given prednisone. She still continues to cough which is nonproductive no fever no chills at time she has trouble reading. No previous history of asthma or COPD COVID screen was done 2 days ago which was negative MD elicited complaint: nasal congestion Onset (ago): week(s) (1) Consistency: constant Severity: mild Exacerbating factors: nothing Relieving factors: nothing Related Data Allergies Allergy/AdvReac Type Severity Reaction Status Date / Time Penicillins Allergy Mild DIARRHEA Verified 03/19/25 01:10 AMOXICILLIN TRIHYDRATE Allergy Unknown Diarrhea Uncoded 01/22/25 22:56 Review of Systems Review of Systems: All systems reviewed & are unremarkable except as noted in HPI and below Constitutional: Constitutional: Reports no additional constitutional complaints Eyes: Eyes: Reports no additional eye complaints ENT: Reports system reviewed and no additional complaints, except as documented Cardiovascular: Cardiovascular: Reports no additional cardiovascular complaints Respiratory: Respiratory: Reports as per HPI Gastrointestinal: Gastrointestinal: Reports no additional gastrointestinal complaints Musculoskeletal: Musculoskeletal: Reports no additional musculoskeletal complaints PMFSH Past Medical History Medical History Anxiety Family planning Morbid obesity Surgical History Surgical History History of Social History Social History Smoking packs per day: 0.25 Smoking cigarettes per day: 5.0 Smoking status: Current every day smoker Alcohol intake: current Substance use: unknown Living arrangements: with family Gender identity (if verbalized by the patient): Female Exam Narrative: GENERAL: Well-appearing, well-nourished, and in no acute distress. HEAD: Normocephalic, atraumatic. EYES: PERRLA and EOMI. ENT: Nares clear, no rhinorrhea or epistaxis. Mucous membranes moist. NECK: Supple. CHEST: Clear to auscultation. No respiratory distress. HEART: Regular rate and rhythm. No murmur heard. Normal peripheral pulses. EXTREMITIES: Normal range of motion. No edema. SKIN: Warm, dry, no rash. NEURO: No focal deficits. Alert and oriented x3. PSYCH: Normal mood and affect. Course Course Emergency Course: lungs are clear on auscultation informed at a viral infection take Tessalon Perles as needed quit smoking follow with the primary doctor Vital Signs Vital signs: Vital Signs Oxygen Delivery Room Air 03/19/25 01:00 Temperature 36.7 C 03/19/25 01:02 Pulse Rate 87 03/19/25 01:02 Respiratory Rate 20 03/19/25 01:02 Blood Pressure 157/86 H 03/19/25 01:02 Pulse Oximetry 98 03/19/25 01:02 Oxygen Delivery Room Air 03/19/25 01:02 Discharge Plan Discharge Clinical Impression: Upper respiratory infection Qualifiers: URI type: unspecified URI Qualified Code(s): J06.9 - Acute upper respiratory infection, unspecified Patient Disposition: Home Condition: Stable Instructions: Acute Bronchitis (ED) Patient Language: Luxembourgish Prescriptions: New benzonatate 100 mg capsule 100 mg PO TID PRN (Reason: cough) Qty: 30 0RF No Action prednisone 50 mg tablet 50 mg PO DAILY Qty: 4 0RF prednisone 10 mg tablet 10 mg PO DAILY Qty: 7 0RF Follow-up/Referrals: Oliver,Heather Dawson MD [Primary Care Provider, Unknown] Time of Disposition: 01:24
--- NOTE | 2025-03-19 01:41 | PC.NURSE ---
ERP CANCELLED RESP SWAB, UNABLE TO CANCEL IN EHR
== END 2025-03-19 01:32 | disposition home or self-care (01) ==
PROVIDERS: Emergency Provider Family Medicine; PCP Student in an Organized Health Care Education/Training Program
DX: J06.9 Acute upper respiratory infection, unspecified (principal); F17.210 Nicotine dependence, cigarettes, uncomplicated
CPT/HCPCS: 99283